=== PATIENT | male | born 1945 | race Caucasian/White ===

== ENCOUNTER 2016-05-18 05:45 | Day surgery (SDC) | payer MEDICARE ==
[2016-05-18] MEDS ORDERED: Lactated Ringers 1,000 ML IV SCH (06:30)
[2016-05-18] MEDS ORDERED: Ketamine HCl 50 MG/ML IV ONE (08:00)
[2016-05-18] MEDS ORDERED: DIPRIVAN 200 MG/20 ML IV ONE (08:00)
--- NOTE | 2016-05-18 08:26 | OP ---
SURGERY DATE/TIME: 05/18/2016 0735 PREOPERATIVE DIAGNOSIS: Screening colonoscopy. POSTOPERATIVE DIAGNOSIS: Cecal polyp x1 and sigmoid polyp x1. PROCEDURE: Colonoscopy. SURGEON: Rui Benjamin M.D. ANESTHESIA: MAC by Rex Patel CRNA. ESTIMATED BLOOD LOSS: Minimal. SPECIMENS: Two cold forceps polypectomies. DESCRIPTION OF PROCEDURE: After informed written consent was obtained, the patient was taken to the endoscopy suite. He underwent monitored anesthesia and digital rectal exam showed normal sphincter tone and no internal lesions. The scope was inserted in the rectum and sequentially the entire colonic mucosa was traversed. The level of cecum was reached and verified with direct visualization of ileocecal valve. There was a small sessile polyp present in the cecum which was removed with cold forceps in its entirety. There was minimal bleeding following removal. The entire lesion appeared to be removed. Upon withdrawal careful mucosal inspection revealed poor prep with liquidy stool present throughout much of the length of the colon but no obvious other abnormalities until I reached the distal sigmoid colon. There was a small sessile polyp there which was likewise removed with cold forceps polyp in its entirety. Prior to withdrawal retroflexion was performed and showed no internal lesions. The scope was removed and the patient was transferred to the recovery room in excellent condition.
[2016-05-18 10:03] VITALS: BP 142/81; PULSE 90; O2SAT 98
== END 2016-05-18 09:45 | disposition home or self-care (01) ==
LOC: SDC 05:45
PROVIDERS: ATTEND Family Medicine
PROC: 0DBH8ZX Excision of Cecum, Via Natural or Artificial Opening Endoscopic, Diagnostic (ICD-10-PCS; principal; 2016-05-18)
PROC: 0DBN8ZX Excision of Sigmoid Colon, Via Natural or Artificial Opening Endoscopic, Diagnostic (ICD-10-PCS; 2016-05-18)
DX: D12.0 Benign neoplasm of cecum (principal); D12.5 Benign neoplasm of sigmoid colon; Z12.11 Encounter for screening for malignant neoplasm of colon; I10 Essential (primary) hypertension
CPT/HCPCS: 00810; 36415; 82962; 88305; J2704

== ENCOUNTER 2016-12-17 15:06 | Emergency (ER) | payer MEDICARE ==
[2016-12-17 15:20] VITALS: O2SAT 96
--- NOTE | 2016-12-17 15:40 | ERPHSYRPT ---
- History of Present Illness Time Seen by Provider: 12/17/16 15:34 Source: patient Exam Limitations: no limitations Patient Subjective Stated Complaint: Pt states "I think my blood sugar is high, my meter said it was 318. I took it yesterday and it was 298. I do not know if i screwed up my meter or not." Triage Nursing Assessment: PT alert and oriented X 3, skin pwd pt ambulates without difficulty, able to speak in full sentencs, appears in no distress. Physician History: 71-year-old white male arrives with complaint of high blood pressures at home symptoms since yesterday. According to the patient he had had a blood pressure of 200 another at 298 one at 315 at home. Patient states he is on metformin. He does state that he recently had a sinus infection which was treated by his family doctor. Is not having fevers is not short of breath he has not had any chest pain really doesn't have any complaints other than he is worried about his numbers. Past medical history includes DVT, high blood pressure, pneumonia, hernia, asthma, diabetes. Past surgical history the patient apparently almost cut his penis off at home was a child, hernia repair., Mastectomy Timing/Duration: yesterday Severity: moderate Modifying Factors: Improves With: nothing Associated Symptoms: No nausea, No vomiting, No abdominal pain, No shortness of breath, No heartburn, No diaphoresis, No cough, No chills, No chest pain, No fever, No headaches, No loss of appetite, No malaise, No rash, No syncope, No seizure, No weakness Allergies/Adverse Reactions: silk Allergy (Severe, Verified 12/17/16 15:20) Swelling 1978 stiches caused swelling Sulfa (Sulfonamide Antibiotics) [Sulfa(Sulfonamide Antibiotics)] Allergy (Mild, Verified 12/17/16 15:20) Difficulty Breathing procaine HCl [From Novocain] Adverse Reaction (Mild, Verified 12/17/16 15:20) Rapid Heart Beat steroids Adverse Reaction (Severe, Uncoded 12/17/16 15:20) GI bleeding Home Medications: Carvedilol 6.25 mg [Coreg 6.25 MG] 6.25 mg PO BID 03/29/12 [History] Fluoxetine HCl 20 mg [Prozac 20 MG] 20 mg PO DAILY 02/15/13 [History] Clonidine HCl 0.1 mg [Catapres 0.1 MG] 0.2 mg PO BID 08/25/15 [History] Ferrous Sulfate 325 mg [Feosol 325 mg] 1 tab PO BID 08/25/15 [History] Hydrochlorothiazide 25 mg [hydroDIURIL 25 MG] 12.5 mg PO DAILY 08/25/15 [ History] Metformin HCl 500 mg [Glucophage 500 MG] 500 mg PO DAILY 05/13/16 [History ] Montelukast Sodium [Singulair] 10 mg PO DAILY 05/13/16 [History] Hx Tetanus, Diphtheria Vaccination/Date Given: Yes Hx Influenza Vaccination/Date Given: Yes Hx Pneumococcal Vaccination/Date Given: No Immunizations Up to Date: Yes - Review of Systems Constitutional: No Fever, No Chills Eyes: No Symptoms Ears, Nose, & Throat: No Symptoms Respiratory: No Cough, No Dyspnea Cardiac: No Chest Pain, No Edema, No Syncope Abdominal/Gastrointestinal: No Abdominal Pain, No Nausea, No Vomiting, No Diarrhea Genitourinary Symptoms: No Dysuria Musculoskeletal: No Back Pain, No Neck Pain Skin: No Rash Neurological: No Dizziness, No Focal Weakness, No Sensory Changes Psychological: No Symptoms Endocrine: No Symptoms - Past Medical History Pertinent Past Medical History: Yes Neurological History: No Pertinent History ENT History: Macular Degeneration Cardiac History: Deep Vein Thrombosis, Hypertension Respiratory History: Asthma, Pneumonia, Other Endocrine Medical History: Diabetes Type II, Other Musculoskeletal History: No Pertinent History GI Medical History: GERD, GI Bleed, Hernia History: Other Psycho-Social History: Anxiety, Depression Male Reproductive Disorders: Prostate Problems Other Medical History: KIDNEY CYST - Past Surgical History Past Surgical History: Yes Neuro Surgical History: No Pertinent History Cardiac: No Pertinent History Respiratory: No Pertinent History Gastrointestinal: Hernia Repair Genitourinary: No Pertinent History Musculoskeletal: No Pertinent History Male Surgical History: Vasectomy Other Surgical History: repair to penis d/t injury several years ago vasectomy times 2 - Social History Smoking Status: Never smoker Exposure to second hand smoke: No Drug Use: none Patient Lives Alone: Yes - Nursing Vital Signs Nursing Vital Signs: Initial Vital Signs Temperature 98.0 F 12/17/16 15:16 Pulse Rate 94 H 12/17/16 15:16 Respiratory Rate 18 12/17/16 15:16 Blood Pressure 162/95 12/17/16 15:16 O2 Sat by Pulse Oximetry 96 12/17/16 15:16 Pain Scale Pain Intensity 0 - Physical Exam General Appearance: no apparent distress, alert, obese Eye Exam: PERRL/EOMI, eyes nml inspection Ears, Nose, Throat Exam: normal ENT inspection, TMs normal, pharynx normal, moist mucous membranes Neck Exam: normal inspection, non-tender, supple, full range of motion Respiratory Exam: normal breath sounds, lungs clear, No respiratory distress Cardiovascular Exam: regular rate/rhythm, normal heart sounds, normal peripheral pulses Gastrointestinal/Abdomen Exam: soft, normal bowel sounds, No tenderness, No mass Back Exam: normal inspection, normal range of motion, No CVA tenderness, No vertebral tenderness Extremity Exam: normal inspection, normal range of motion, pelvis stable Neurologic Exam: alert, oriented x 3, cooperative, normal mood/affect, nml cerebellar function, nml station & gait, sensation nml, No motor deficits Skin Exam: normal color, warm, dry, No rash SpO2 Interpretation: normal (96%) SpO2: 96 Oxygen Delivery: Room Air - Course Nursing assessment & vital signs reviewed: Yes Ordered Tests: Active Orders 24 hr Category Date Time Status Accucheck STAT Care 12/17/16 15:34 Ordered - Progress Progress: improved Progress Note: 12/17/16 15:37 This is a 71-year-old white male with history of high blood pressure diabetes DVT pneumonia hernia asthma He is on metformin. He states his blood sugars were running 200, to 298 yesterday 315 this morning. He came in to have this checked he is really not having any shortness breath or pain. Patient has his Accu-Chek checked by the nurse Accu-Chek is 96. Will go ahead and release the patient have him do 4 times a day Accu-Cheks, after meals and at bedtime and write them down. Will also ask patient to bring in his meter and check it against the meter here. - Departure Time of Disposition: 15:39 Departure Disposition: Home Clinical Impression: Hyperglycemia, possible glucose monitor malfunction Condition: Fair Critical Care Time: No Referrals: PASCALE GROVES MD [Primary Care Provider] - Additional Instructions: Return home. Monitor blood sugars 4 times a day (before meals and at bedtime. Continue metformin as prescribed by your family doctor. Follow-up with your family doctor. Return for acute distress or for severe symptoms.
[2016-12-17 15:54] VITALS: BP 164/88; PULSE 88
== END 2016-12-17 15:54 | disposition home or self-care (01) ==
LOC: ED 15:06
DX: E11.65 Type 2 diabetes mellitus with hyperglycemia (principal); Z79.84 Long term (current) use of oral hypoglycemic drugs; I10 Essential (primary) hypertension
CPT/HCPCS: 82962; 99281; 99282

== ENCOUNTER 2017-05-18 15:32 | Inpatient (IN) | payer MEDICARE ==
[2017-05-18] MEDS ORDERED: MORPHINE SULFATE 4 MG INJ IV ONE (16:36)
[2017-05-18] MEDS ORDERED: Zofran 4 MG/2 ML VIAL IV ONE (16:36)
[2017-05-18] MEDS ORDERED: MORPHINE SULFATE 4 MG INJ ONE (16:41)
[2017-05-18] MEDS ORDERED: Zofran 4 MG/2 ML VIAL ONE (16:41)
[2017-05-18] MEDS ORDERED: Sodium Chloride 0.9% 1000 ML 1,000 ML ONE (16:42)
[2017-05-18] MEDS ORDERED: Sodium Chloride 0.9% 1000 ML 1,000 ML IV SCH (16:45)
[2017-05-18 17:21] LABS: ALBUMIN 3.8 g/dL (3.4-5.0); ANION GAP 17.1 MEQ/L (5-15); BILIRUBIN,TOTAL 0.3 mg/dL (0.2-1.0); Calcium 9.9 mg/dL (8.5-10.1); Creatinine 1 1.31 mg/dl (0.55-1.30); Potassium 4.4 mEq/L (3.5-5.1); Total Protein 7.7 gm/dL (6.4-8.2)
[2017-05-18 17:22] LABS: Granulocyte Absolute (ANC) 9.61 (1.4-6.9); Hematocrit 40.6 % (42-50); Hemoglobin 13.7 gm/dl (12.5-18.0); Mean Cell Volume 83.2 fl (78-100); Mean Corpuscular Hemoglobin 28.1 pg (26-32); Mean Corpuscular Hgb Concent. 33.7 g/dl (32-36); Mean Platelet Volume 9.9 fl (6-9.5); Platelet Count 206 K/mm3 (150-450); Red Blood Count 4.88 M/mm3 (4.1-5.6); Red Cell Distribution Width 13.8 % (11.5-14.0); White Blood Count 11.6 K/mm3 (4.0-10.5)
[2017-05-18] MEDS ORDERED: Hydromorphone 1 mg/ml Ampule IV ONE ×2 (17:46→19:10)
[2017-05-18] MEDS ORDERED: HOLD METFORMIN PRODUCTS FOR 48 HOURS MC SCH (18:00)
[2017-05-18 18:01] LABS: Appearance SLIGHTLY CLOUDY (CLEAR); Bilirubin NEGATIVE (NEGATIVE); Blood 250 Ery/ul (0-5); Glucose 100 mg/dL (NEGATIVE); Ketones MODERATE (NEGATIVE); Leukocyte Esterase NEGATIVE (NEGATIVE); Nitrite NEGATIVE (NEGATIVE); Protein,Urine Dip 30 (Negative); Urobilinogen NORMAL mg/dL (0-1)
[2017-05-18 18:02] LABS: Amourphous Crystal FEW /HPF (NEGATIVE); Bacteria FEW /HPF (NEGATIVE); Mucus SLIGHT /HPF (NEGATIVE); WBC 0-2 /HPF (0-5)
[2017-05-18] MEDS ORDERED: DILAUDID 2 MG INJECTION ONE ×2 (18:10→19:21)
--- NOTE | 2017-05-18 19:44 | ERPHSYRPT ---
- History of Present Illness Time Seen by Provider: 05/18/17 16:05 Historian: patient Exam Limitations: clinical condition Patient Subjective Stated Complaint: pt here for right sided abd pain that started today, with nausea, pt co constipation, has bm yesterday.tool miralax at home Triage Nursing Assessment: pt alert, resp easy, walked in, in mild ditress, rubbing abd , and large and distended, no edema noted Physician History: PATIENT WITH A HISTORY OF HYPERTENSION , AND TYPE 2 DIABETES, COMPLAINS OF RIGHT SIDED ABDOMINAL PAIN AND DISTENTION SINCE THIS MORNING ASSOCIATED WITH NAUSEA, AND DYSURIA. DENIES EMESIS OR DIARRHEA, OR FEVER. STATES HE IS SO DISTENDED HE IS UNABLE TO BUTTON UP HIS PANTS. Timing/Duration: today Activities at Onset: none Quality: throbbing Abdominal Pain Onset Location: RLQ Pain Radiation: no radiation Severity of Pain-Max: severe Severity of Pain-Current: severe Modifying Factors: Improves With: movement Associated Symptoms: nausea, other (DYSURIA) Previous symptoms: no prior history Allergies/Adverse Reactions: silk Allergy (Severe, Verified 05/18/17 15:54) Swelling 1978 stiches caused swelling Sulfa (Sulfonamide Antibiotics) [Sulfa(Sulfonamide Antibiotics)] Allergy (Mild, Verified 05/18/17 15:54) Difficulty Breathing procaine HCl [From Novocain] Adverse Reaction (Mild, Verified 05/18/17 15:54) Rapid Heart Beat steroids Adverse Reaction (Severe, Uncoded 05/18/17 15:54) GI bleeding Home Medications: Carvedilol 6.25 mg [Coreg 6.25 MG] 6.25 mg PO BID 03/29/12 [History] Fluoxetine HCl 20 mg [Prozac 20 MG] 20 mg PO DAILY 02/15/13 [History] Clonidine HCl 0.1 mg [Catapres 0.1 MG] 0.2 mg PO BID 08/25/15 [History] Ferrous Sulfate 325 mg [Feosol 325 mg] 1 tab PO DAILY 08/25/15 [History] Hydrochlorothiazide 25 mg [hydroDIURIL 25 MG] 12.5 mg PO DAILY 08/25/15 [ History] Metformin HCl 500 mg [Glucophage 500 MG] 500 mg PO BID 05/13/16 [History] Montelukast Sodium [Singulair] 10 mg PO DAILY 05/13/16 [History] Hx Tetanus, Diphtheria Vaccination/Date Given: Yes Hx Influenza Vaccination/Date Given: Yes Hx Pneumococcal Vaccination/Date Given: Yes Immunizations Up to Date: Yes - Review of Systems Constitutional: No Fever, No Chills Eyes: No Symptoms Ears, Nose, & Throat: No Symptoms Respiratory: No Cough, No Dyspnea Cardiac: No Chest Pain, No Edema, No Syncope Abdominal/Gastrointestinal: Abdominal Pain, Nausea, No Vomiting, No Diarrhea Genitourinary Symptoms: Dysuria, Other Musculoskeletal: No Back Pain, No Neck Pain Skin: No Symptoms, No Rash Neurological: No Dizziness, No Focal Weakness, No Sensory Changes Psychological: No Symptoms Endocrine: No Symptoms All Other Systems: Reviewed and Negative - Past Medical History Pertinent Past Medical History: Yes Neurological History: No Pertinent History ENT History: Macular Degeneration Cardiac History: Deep Vein Thrombosis, Hypertension Respiratory History: Asthma, Pneumonia, Other Endocrine Medical History: Diabetes Type II, Other Musculoskeletal History: No Pertinent History GI Medical History: GERD, GI Bleed, Hernia History: Other Psycho-Social History: Anxiety, Depression Male Reproductive Disorders: Prostate Problems Other Medical History: KIDNEY CYST - Past Surgical History Past Surgical History: Yes Neuro Surgical History: No Pertinent History Cardiac: No Pertinent History Respiratory: No Pertinent History Gastrointestinal: Hernia Repair Genitourinary: No Pertinent History Musculoskeletal: No Pertinent History Male Surgical History: Vasectomy Other Surgical History: repair to penis d/t injury several years ago vasectomy times 2 - Social History Smoking Status: Never smoker Exposure to second hand smoke: No Drug Use: none Patient Lives Alone: No - Nursing Vital Signs Nursing Vital Signs: Initial Vital Signs Temperature 97.0 F 05/18/17 15:48 Pulse Rate 82 05/18/17 15:48 Respiratory Rate 18 05/18/17 15:48 Blood Pressure 194/110 05/18/17 15:48 O2 Sat by Pulse Oximetry 97 05/18/17 15:48 Pain Scale Pain Intensity 9 - Physical Exam General Appearance: no apparent distress, alert Eye Exam: PERRL/EOMI, eyes nml inspection Ears, Nose, Throat Exam: normal ENT inspection, pharynx normal, moist mucous membranes Neck Exam: normal inspection, non-tender, supple, full range of motion Respiratory Exam: normal breath sounds, lungs clear, No respiratory distress Cardiovascular Exam: regular rate/rhythm, normal heart sounds Gastrointestinal/Abdomen Exam: soft, normal bowel sounds, tenderness, distention (MARKED DISTENTION, RIGHT LOWER QUADRANT TENDERNESS), No mass Back Exam: normal inspection, normal range of motion, No CVA tenderness, No vertebral tenderness Extremity Exam: normal inspection, normal range of motion, pelvis stable Neurologic Exam: alert, oriented x 3, cooperative, normal mood/affect, nml cerebellar function, sensation nml, No motor deficits Skin Exam: normal color, warm, dry SpO2 Interpretation: normal SpO2: 94 Oxygen Delivery: Room Air - CT Exams Abdomen/Pelvis CT Interpretation: Discussed w/radiologist (BILATERAL PERINEPHRIC STRANDING RIGHT GREATER THAN LEFT, RULE NEPHRITIS, BILATERAL RENAL CYSTS, CARDENAS INSITU, MODERATE FLUID DISTENDED STOMACH WITHOUT OBSTRUCTION, FATTY LIVER) Ordered Tests: Active Orders 24 hr Category Date Time Status Up Ad Carly ROUTINE Activity 05/18/17 21:34 Ordered Admission/Status Order ROUTINE Care 05/18/17 21:32 Ordered Call Admit Doctor for Orders ON ADMISSION Care 05/18/17 21:33 Ordered Clean Catch Urine Specimen STAT Care 05/18/17 16:36 Active Code Status Order ROUTINE Care 05/18/17 21:32 Ordered Cardenas [Catheter-[place] Cardenas] STAT Care 05/18/17 17:21 Active Gastric Tube Insertion STAT Care 05/18/17 20:09 Active IV Care Q6H Care 05/18/17 21:32 Ordered IV Insertion STAT Care 05/18/17 16:36 Active Intake and Output Q12H Care 05/18/17 21:32 Ordered Vital Signs Q4H Care 05/18/17 21:32 Ordered NPO Diet 05/18/17 21:34 Ordered ABDOMEN AND PELVIS W CONTRAST [CT] Stat Exams 05/18/17 16:36 Taken AMYLASE Stat Lab 05/18/17 16:10 Completed BLOOD CULTURE Stat Lab 05/18/17 17:08 Received CBC W DIFF Stat Lab 05/18/17 16:10 Completed CMP Stat Lab 05/18/17 16:10 Completed CULTURE,URINE Stat Lab 05/18/17 16:30 Received LIPASE Stat Lab 05/18/17 16:10 Completed Manual Differential NC Stat Lab 05/18/17 16:10 Completed UA W/ MICROSCOPIC Stat Lab 05/18/17 17:30 Completed Oxygen NASAL CANNULA 2 lpm RT 05/18/17 21:32 Ordered Pulse Oximetry CONTINUOUS RT 05/18/17 21:34 Ordered Transfer Order Routine Transfer 05/18/17 Ordered Medication Summary Generic Name Dose Route Start Last Admin Trade Name Fiordaliza PRN Reason Stop Dose Admin Hydromorphone HCl 0.5 mg 05/18/17 21:32 Dilaudid 2 Mg Injection IV 05/23/17 21:31 Q4H PRN PRN PAIN Sodium Chloride 1,000 mls @ 200 mls/hr 05/18/17 16:45 05/18/17 16:43 Sodium Chloride 0.9% 1000 Ml IV 06/17/17 16:44 200 mls/hr .Q5H GARRY Administration Levofloxacin/Dextrose 500 mg in 100 mls @ 100 mls/hr 05/18/17 21:30 Levofloxacin 500mg/100ml D5w IV 05/18/17 22:29 STAT STA Levofloxacin/Dextrose 500 mg in 100 mls @ 100 mls/hr 05/19/17 10:00 Levofloxacin 500mg/100ml D5w IV 06/18/17 09:59 Q24H10 GARRY Sodium Chloride 1,000 mls @ 100 mls/hr 05/18/17 21:45 Sodium Chloride 0.9% 1000 Ml IV 06/17/17 21:44 .Q10H GARRY Insulin Aspart 0 unit 05/18/17 21:32 Novolog Insulin SQ 06/17/17 21:31 UD PRN HYPERGLYCEMIA Ondansetron HCl 4 mg 05/18/17 21:32 Zofran 4 Mg/2 Ml Vial IV 06/17/17 21:31 Q6H PRN PRN NAUSEA/VOMITING Pantoprazole Sodium 40 mg 05/19/17 10:00 Protonix 40 Mg Iv IV 06/18/17 09:59 Q24H10 GARRY Discontinued Medications Generic Name Dose Route Start Last Admin Trade Name Fiordaliza PRN Reason Stop Dose Admin Hydralazine HCl 10 mg 05/18/17 21:21 05/18/17 21:34 Apresoline 20 Mg/Ml Inj IV 05/18/17 21:22 Not Given STAT ONE Hydralazine HCl Confirm 05/18/17 21:31 Apresoline 20 Mg/Ml Inj Administered 05/18/17 21:32 Dose 20 mg .ROUTE .STK-MED ONE Hydromorphone HCl 0.5 mg 05/18/17 17:46 05/18/17 18:11 Hydromorphone 1 Mg/Ml Ampule IV 05/18/17 17:47 0.5 mg STAT ONE Administration Hydromorphone HCl Confirm 05/18/17 18:10 Dilaudid 2 Mg Injection Administered 05/18/17 18:11 Dose 2 mg .ROUTE .STK-MED ONE Hydromorphone HCl 0.5 mg 05/18/17 19:10 05/18/17 19:23 Hydromorphone 1 Mg/Ml Ampule IV 05/18/17 19:11 0.5 mg STAT ONE Administration Hydromorphone HCl Confirm 05/18/17 19:21 Dilaudid 2 Mg Injection Administered 05/18/17 19:22 Dose 2 mg .ROUTE .STK-MED ONE Morphine Sulfate 4 mg 05/18/17 16:36 05/18/17 16:43 Morphine Sulfate 4 Mg Inj IV 05/18/17 16:37 4 mg STAT ONE Administration Morphine Sulfate Confirm 05/18/17 16:41 Morphine Sulfate 4 Mg Inj Administered 05/18/17 16:42 Dose 4 mg .ROUTE .STK-MED ONE Ondansetron HCl 4 mg 05/18/17 16:36 05/18/17 16:43 Zofran 4 Mg/2 Ml Vial IV 05/18/17 16:37 4 mg STAT ONE Administration Ondansetron HCl Confirm 05/18/17 16:41 Zofran 4 Mg/2 Ml Vial Administered 05/18/17 16:42 Dose 4 mg .ROUTE .STK-MED ONE Lab/Rad Data: Laboratory Result Diagrams 05/18/17 16:10 05/18/17 16:10 Laboratory Results 05/18/17 05/18/17 05/18/17 Range/Units 17:30 16:10 16:10 WBC 11.6 H (4.0-10.5) K/mm3 RBC 4.88 (4.1-5.6) M/mm3 Hgb 13.7 (12.5-18.0) gm/dl Hct 40.6 L (42-50) % MCV 83.2 (78-100) fl MCH 28.1 (26-32) pg MCHC 33.7 (32-36) g/dl RDW 13.8 (11.5-14.0) % Plt Count 206 (150-450) K/mm3 MPV 9.9 H (6-9.5) fl Segmented Neutrophils 82 H (36.-66.) % Lymphocytes (Manual) 12 L (24-44) % Monocytes (Manual) 5 (0.0-12.0) % Eosinophils (Manual) 1 (0.00-3.0) % Differential Comment NORMAL Platelet Estimate NORMAL (NORMAL) Sodium 137 (136-145) mEq/L Potassium 4.4 (3.5-5.1) mEq/L Chloride 99 (98-107) mEq/L Carbon Dioxide 25.0 (21-32) mEq/L Anion Gap 17.1 H (5-15) MEQ/L BUN 15 (9-20) mg/dL Creatinine 1.31 H (0.55-1.30) mg/dl Estimated GFR 58 ML/MIN Glucose 200 H (70-110) MG/DL Calcium 9.9 (8.5-10.1) mg/dL Total Bilirubin 0.30 (0.2-1.0) mg/dL AST 20 (15-37) U/L ALT 34 (12-78) U/L Alkaline Phosphatase 67 (46-116) U/L Serum Total Protein 7.7 (6.4-8.2) gm/dL Albumin 3.8 (3.4-5.0) g/dL Amylase 42 (25-115) U/L Lipase 98 (73-393) U/L Ur Collection Type CCMS Urine Color YELLOW (YELLOW) Urine Appearance SLIGHTLY CLOUDY (CLEAR) Urine pH 5.0 (5-6) Ur Specific [place] 1.020 (1.005-1.025) Urine Protein 30 (Negative) Urine Ketones MODERATE (NEGATIVE) Urine Blood 250 (0-5) Ralph/ul Urine Nitrite NEGATIVE (NEGATIVE) Urine Bilirubin NEGATIVE (NEGATIVE) Urine Urobilinogen NORMAL (0-1) mg/dL Ur Leukocyte Esterase NEGATIVE (NEGATIVE) Urine Microscopic RBC 25-50 (0-2) /HPF Urine Microscopic WBC 0-2 (0-5) /HPF Amorphous Crystals FEW (NEGATIVE) /HPF Urine Bacteria FEW (NEGATIVE) /HPF Urine Mucus SLIGHT (NEGATIVE) /HPF Urine Culture Reflexed NO (NO) Urine Glucose 100 (NEGATIVE) mg/dL Specimen Received 05-18-17 1800 - Progress Progress: pain not gone completely Progress Note: 05/18/17 20:26 IV NORMAL SALINE 250ML/HR, ZOFRAN 4MG, MORPHINE 4MG, DILAUDID 0.5MG X 2 05/18/17 21:18 NASAL GASTRIC TO LOW SUCTION Discussed with Dr.: Johanna Will see patient in: hospital (full admit) (DISCUSSED WITH DR MAHER AT AT 1730 FOR ADMIT) - Departure Time of Disposition: 21:30 Departure Disposition: In-patient Admission Clinical Impression: ACUTE ABDOMINAL PAIN, EARLY RIGHT PYELONEPHRITIS Condition: Stable Critical Care Time: No Referrals: PASCALE GROVES MD [Primary Care Provider] -
[2017-05-18] MEDS ORDERED: Levofloxacin 500MG/100ML D5W 500 MG/100 ML BAG IV STA (21:30)
[2017-05-18] MEDS ORDERED: APRESOLINE 20 MG/ML INJ ONE (21:31)
[2017-05-18] MEDS: APRESOLINE 20 MG/ML INJ IV ONE ×2 (21:31→21:34)
[2017-05-18] MEDS ORDERED: Zofran 4 MG/2 ML VIAL IV PRN (21:32)
[2017-05-18] MEDS ORDERED: DILAUDID 2 MG INJECTION IV PRN (21:32)
[2017-05-18 21:34] LABS: Eosinophil 1 % (0.00-3.0); Lymphocytes 12 % (24-44); Monocyte 5 % (0.0-12.0); Neutrophils 82 % (36.-66.); Platelet Estimate NORMAL (NORMAL); Total Cells Counted 100
[2017-05-18] MEDS: Sodium Chloride 0.9% 1000 ML 1,000 ML IV SCH (22:30)
[2017-05-19] MEDS: DILAUDID 1 MG/1ML PCA IV PRN ×2 (01:14→06:24)
[2017-05-19] MEDS ORDERED: Phenergan 25 MG INJ IV PRN (08:24)
--- NOTE | 2017-05-19 08:44 | XRAY ---
Indication: Abdominal pain and distention. Multiple contiguous axial images obtained through the abdomen and pelvis using 80 cc Isovue 370 contrast only. Comparison: None Lung bases demonstrate minimal dependent atelectasis/scarring. 5 mm noncalcified nodule in the right posterior gutter probably granulomatous in this demographic. No infiltrate or effusion. Heart is not enlarged. Stomach is moderately fluid distended. Noncontrasted bowel loops appear nonobstructed. No free fluid/air. Both kidneys demonstrates perinephric stranding, right greater than left with tiny right perinephric fluid favoring nephritis. 3 cm left lower pole and 2.5 cm right mid renal cysts. No suspicious renal mass, hydronephrosis, or hydroureter. Santiago catheter empties the urinary bladder. Diffuse fatty liver without focal solid/cystic mass. Remaining gallbladder, pancreas, spleen, antigen glands appear unremarkable. Minimal aortoiliac calcifications. No AAA or pathologic retroperitoneal lymphadenopathy. Osseous structures intact with minimal degenerative changes throughout the spine. 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 Mild/moderate bilateral fatty inguinal hernias, right greater than left. Impression: 1. Bilateral perinephric stranding with tiny right perinephric fluid. Rule out nephritis. Also bilateral renal cysts. 2. Fatty liver. 3. Bilateral fatty inguinal hernias. 4. Right lung base noncalcified micronodule probably granulomatous in this demographic. Comparison studies would be of benefit if performed elsewhere. If not available, consider CT chest exam establishing baseline with follow-up per Fleischner guidelines. 5. Bilateral L5 spondylolysis with grade [address] DI 23.68
[2017-05-19 08:46] LABS: Hematocrit 41.8 % (42-50); Hemoglobin 14.1 gm/dl (12.5-18.0); Mean Cell Volume 84.1 fl (78-100); Mean Corpuscular Hemoglobin 28.4 pg (26-32); Mean Corpuscular Hgb Concent. 33.7 g/dl (32-36); Mean Platelet Volume 9.6 fl (6-9.5); Platelet Count 207 K/mm3 (150-450); Red Blood Count 4.97 M/mm3 (4.1-5.6); Red Cell Distribution Width 14.2 % (11.5-14.0); White Blood Count 11.6 K/mm3 (4.0-10.5)
--- NOTE | 2017-05-19 09:05 | HP ---
HISTORY OF PRESENT ILLNESS: This is a patient of Dr. Morris who presented to the emergency department. Dr. Spencer was covering and was called by the emergency room doctor and now both Dr. Spencer and Dr. Benjamin are out today. The patient reports that yesterday he started to have some right-sided pain after eating pancakes and eggs at [employer]. He states it comes from the right lower quadrant up towards the right upper quadrant and he felt like he needed to use the bathroom but he was unable to go. He denies being able to pass gas since yesterday and has felt bloated or distended. He was up in [place] visiting a friend and drove himself down to [place] where his son-in-law then brought him into the emergency department. He states he continued to have right-sided pain. He still has his gallbladder. He thinks he had a very tiny stool yesterday and two days ago was his last normal stool. He also reports he ate at [id number] two days ago. He denies any history of any bowel problems. He has not had any vomiting at home. REVIEW OF SYSTEMS: He has not had any fevers at home but has felt warm. He continues to have abdominal pain. No shortness of breath. He had some nausea and retching when he changed positons when he was in his bed here at the hospital. No lower extremity edema. PAST MEDICAL HISTORY: Hypertension, depression. He reports a history of he calls internal bleeding at [facility]. He reports he has a problem with his duodenum. He denies having ulcer. He states they did not have to do surgery. He also reports being at [facility] in 2013 with deep venous thrombosis, pulmonary embolism and right sided pneumonia. PAST SURGICAL HISTORY: Hernia repair, vasectomy x2, surgery on his penis. MEDICATIONS: Carvedilol 6.25 mg p.o. b.i.d., clonidine 0.4 mg p.o. b.i.d., ferrous sulfate 325 mg p.o. daily, fluoxetine 20 mg p.o. daily, hydrochlorothiazide 12.5 mg daily, Metformin 500 mg p.o. b.i.d., Singulair 10 mg p.o. daily. ALLERGIES: SILK, SULFA, PROCAINE. SOCIAL HISTORY: He denies any tobacco use. He reports he rarely drinks wine. He lives alone. He is a . FAMILY HISTORY: It was not taken during this exam. PHYSICAL EXAMINATION: VITAL SIGNS: Temperature current 98.6F, temperature max 98.6F, heart rate 82 to 104, respiratory rate 16 to 20, blood pressure 149 to 194 over 80 to 110, weight 115.5 kg. Oxygen saturation 94 to 99% on room air to 2 liters nasal cannula. GENERAL: The patient is sitting up in his bed. He is pleasant and talkative. He has NG tube in place. When I asked him to lean forward to listen to his lungs he developed nausea and vomiting. The NG tube had some output that looks like clear fluid. CVS: Heart has a regular rate and rhythm. No murmurs, gallops or rubs. CHEST: Clear to auscultation bilaterally. ABDOMEN: Distended. I heard one bowel sounds. He has tenderness right lower quadrant. No tenderness in the left side. No guarding. No rigidity. EXTREMITIES: Trace edema to his knees bilaterally. No clubbing or edema. LABORATORY DATA AND TESTS: His white blood cell count was 11.7 with 82% neutrophils, 12% lymphocytes. Creatinine was 1.3, glucose 200. UA was 25 to 50 red blood cells and 0 to 2 white blood cells, 100 glucose, moderate ketone. He has urine and blood cultures in lab. CT scan of his abdomen and pelvis was read as perinephric stranding right greater than left. Bilateral renal cyst. Moderate fluid distended stomach without obstruction, fatty liver, fatty inguinal hernia. Please see the radiologist dictation for the full report. They said this was done with contrast. ASSESSMENT AND PLAN: 1) ABDOMINAL PAIN: Will ask the general surgeons to see the patient, will continue the NG tube and have him NPO. 2) POSSIBLE NEPHRITIS. He has been started on Levaquin and will continue with this. His UA did not show any bacteria or white blood cells to support the diagnosis of nephritis. 3) HYPERTENSION: He has hydralazine ordered as needed, will try to restart his home antihypertensive if they are able to clean the NG for this. 4) DEPRESSION: We will currently hold his anti-depression medication. 5) DIABETES: He is on a low dose sliding scale of NovoLog. 6) DEEP VENOUS THROMBOSIS PROPHYLAXIS: Will start him on Lovenox and MISAEL hose. 7) CODE STATUS: I discussed with Chapito Simmons and he does not want to be put on a breathing machine or have chest compressions if his heart would stop beating or he stopped breathing.
--- NOTE | 2017-05-19 09:20 | XRAY ---
Indication: Abdominal pain, vomiting, nausea. Comparison: Chest exam April 30, 2015. 2 views of the abdomen demonstrates nonspecific nonobstructed bowel gas pattern with NG tube tip in the stomach. There is residual contrast in the system from recent CT. Remaining solid organs are unremarkable. Osseous structures intact with mild degenerative spondylosis, moderate bilateral hip degenerative changes, and mild double curvature scoliosis. Single frontal chest demonstrates new left base subsegmental atelectasis. Remaining heart and lungs unremarkable. Bony thorax intact with mild degenerative changes. Impression: 1. Nonacute nonobstructed abdomen with NG tube in situ. 2. New left base atelectasis. No acute cardiopulmonary abnormalities.
[2017-05-19 09:21] LABS: BAND 2 % (0.0-2.0); Eosinophil 1 % (0.00-3.0); Lymphocytes 8 % (24-44); Monocyte 3 % (0.0-12.0); Neutrophils 86 % (36.-66.); Total Cells Counted 100
[2017-05-19 09:22] LABS: Granulocyte Absolute (ANC) 10.2 (1.4-6.9); Platelet Estimate NORMAL (NORMAL)
[2017-05-19 09:23] LABS: ANION GAP 14.3 MEQ/L (5-15); Calcium 9.3 mg/dL (8.5-10.1); Creatinine 1 1.66 mg/dl (0.55-1.30); Potassium 4.7 mEq/L (3.5-5.1)
[2017-05-19] MEDS: Catapres 0.1 MG PO SCH ×2 (09:44→23:19)
[2017-05-19] MEDS: ENOXAPARIN SODIUM SQ SCH (09:44)
[2017-05-19] MEDS: Coreg 6.25 MG PO SCH ×2 (09:44→23:19)
[2017-05-19] MEDS: Sodium Chloride 0.9% 1000 ML 1,000 ML IV SCH ×2 (09:55→20:39)
[2017-05-19] MEDS: PROTONIX 40 MG IV IV SCH (09:57)
[2017-05-19] MEDS ORDERED: Levofloxacin 500MG/100ML D5W 500 MG/100 ML BAG IV SCH (10:00)
--- NOTE | 2017-05-19 10:07 | XRAY ---
Indication: Abdominal pain. Two-dimensional right upper quadrant abdominal sonogram performed. Comparison: None Gallbladder normally distended without gallstones, wall thickening, or pericholecystic fluid. Common bile duct measures 4.9 mm. No intrahepatic biliary distention. Fatty echogenic liver without focal solid/cystic mass. No ascites. Remaining visualized pancreas unremarkable. Right kidney measures 13 cm in length with a 2.3 cm upper pole cortical cyst. Impression: 1. Fatty liver and right renal cyst. 2. Remaining gallbladder sonogram is negative.
[2017-05-19] MEDS: NovoLOG Insulin SQ PRN (11:04)
[2017-05-19] MEDS ORDERED: PROVENTIL 2.5 MG/3 ML NEB IH ONE (16:55)
[2017-05-19] MEDS ORDERED: PROVENTIL 2.5 MG/3 ML NEB IH PRN (16:59)
[2017-05-19] MEDS: PROVENTIL 2.5 MG/3 ML NEB IH SCH (17:02)
[2017-05-19] MEDS ORDERED: TYLENOL 325 MG PO PRN (20:49)
[2017-05-19] MEDS: Levofloxacin 500MG/100ML D5W 500 MG/100 ML BAG IV SCH (23:18)
[2017-05-20 06:04] LABS: ANION GAP 13.9 MEQ/L (5-15); BASOPHIL % 0.2 % (0.0-0.4); Basophil (Absolute #) 0.02 (0-0.4); Carbon Dioxide 29.1 mEq/L (21-32); Creatinine 1 1.53 mg/dl (0.55-1.30); Eosinophil % 0.6 % (0.00-5.0); Eosinophil (Absolute #) 0.06 (0-0.5); Granulocyte Absolute (ANC) 7.55 (1.4-6.9); Granulocytes % 79.9 % (36.0-66.0); Hematocrit 40.7 % (42-50); Hemoglobin 13.4 gm/dl (12.5-18.0); Lymphocyte (Absolute #) 0.83 (1.0-4.6); Lymphocytes % 8.8 % (24.0-44.0); Mean Cell Volume 85.7 fl (78-100); Mean Corpuscular Hemoglobin 28.2 pg (26-32); Mean Corpuscular Hgb Concent. 32.9 g/dl (32-36); Mean Platelet Volume 10.4 fl (6-9.5); Monocyte (Absolute #) 0.99 (0.0-1.3); Monocytes % 10.5 % (0.0-12.0); Platelet Count 194 K/mm3 (150-450); Potassium 4.6 mEq/L (3.5-5.1); Red Blood Count 4.75 M/mm3 (4.1-5.6); Red Cell Distribution Width 14.4 % (11.5-14.0); White Blood Count 9.5 K/mm3 (4.0-10.5)
[2017-05-20] MEDS: PROVENTIL 2.5 MG/3 ML NEB IH SCH ×3 (06:55→19:28)
[2017-05-20] MEDS: Sodium Chloride 0.9% 1000 ML 1,000 ML IV SCH (07:33)
[2017-05-20] MEDS: Catapres 0.1 MG PO SCH ×2 (09:14→21:36)
[2017-05-20] MEDS: Coreg 6.25 MG PO SCH ×2 (09:14→21:36)
[2017-05-20] MEDS: PROTONIX 40 MG IV IV SCH (09:15)
[2017-05-20] MEDS: ENOXAPARIN SODIUM SQ SCH (09:15)
--- NOTE | 2017-05-20 12:30 | PCM.NOTE ---
Date and Time: 05/20/17 1222 Subjective Assessment: He reports that he is feeling much better today. The surgeon saw him last night and the nurses reported to me later today that he is going to have his NG removed and let him eat. The patient reports he has not needed his [employer] since last night and that his abdomen does not feel as distended. Urine culture report was changed by lab from gram neg to no growth final. I called and confirmed this with Camilla in the lab and she said there was no growth and the gram neg result had been entered in error. Unfortunately, I had already told the patient that his urine was growing a bacteria based on the lab results that I had at that time from the lab. - Review of Systems Constitutional: No Symptoms Eyes: No Symptoms Ears, Nose, & Throat: No Symptoms Respiratory: No Symptoms Cardiac: No Symptoms Abdominal/Gastrointestinal: Other (abdominal pain has improved) Genitourinary Symptoms: Other (He reports a little burning last Monday when he urinated) Musculoskeletal: No Symptoms Skin: No Symptoms Objective Exam General Appearance: no apparent distress, alert, obese Neurologic Exam: alert, cooperative, normal mood/affect Skin Exam: normal color, warm, dry, No rash Respiratory Exam: normal breath sounds, lungs clear, No crackles/rales, No rhonchi, No wheezing Cardiovascular Exam: regular rate/rhythm, normal heart sounds, No murmur, No friction rub, No gallop Gastrointestinal/Abdomen Exam: soft, normal bowel sounds, other (NG tube in place), No tenderness, No distention, No mass Extremity Exam: other (no c/c/e) OBJECTIVE DATA Vital Signs: Vital Signs - 24 hr Temp Pulse Resp BP Pulse Ox 05/20/17 11:45 98.5 F 98 H 18 129/73 95 05/20/17 08:21 94 L 05/20/17 07:25 97.8 F 89 18 135/81 97 05/20/17 06:55 93 H 18 96 05/20/17 04:00 97.8 F 91 H 20 149/82 94 L 05/20/17 00:00 98.0 F 81 20 178/95 96 05/19/17 23:30 79 20 97 05/19/17 20:47 96 05/19/17 19:55 98.1 F 79 19 142/78 96 05/19/17 17:06 97 05/19/17 17:00 79 18 97 05/19/17 16:47 98 05/19/17 16:25 97.8 F 86 20 155/82 98 Oxygen-Last 24 hours O2 Percentage 2 Liters = 28% O2 Percentage 2 Liters = 28% O2 Percentage 2 Liters = 28% O2 Percentage 2 Liters = 28% Pain Assessment - Last Documented Pain Intensity 2 Pain Scale Used 0-10 Pain Scale Intake and Output: Intake & Output 05/18/17 05/19/17 05/20/17 05/21/17 06:59 06:59 06:59 06:59 Intake Total 574 1758 0 Output Total 2525 2150 1000 Balance -1950 -392 -1000 Weight 115.5 kg Lab Results: Accuchecks Date 05/20/17 Date 05/20/17 Date 05/19/17 Date 05/19/17 Time 11:30 Time 05:28 Accucheck Value: 140 Accucheck Value: 172 Accucheck Value: 153 Accucheck Value: 163 Lab Results-Last 24 Hours 05/20/17 05/20/17 Range/Units 05:43 05:43 WBC 9.5 (4.0-10.5) K/mm3 RBC 4.75 (4.1-5.6) M/mm3 Hgb 13.4 (12.5-18.0) gm/dl Hct 40.7 L (42-50) % MCV 85.7 (78-100) fl MCH 28.2 (26-32) pg MCHC 32.9 (32-36) g/dl RDW 14.4 H (11.5-14.0) % Plt Count 194 (150-450) K/mm3 MPV 10.4 H (6-9.5) fl Gran % 79.9 H (36.0-66.0) % Lymphocytes % 8.8 L (24.0-44.0) % Monocytes % 10.5 (0.0-12.0) % Eosinophils % 0.6 (0.00-5.0) % Basophils % 0.2 (0.0-0.4) % Basophils # 0.02 (0-0.4) Sodium 141 (136-145) mEq/L Potassium 4.6 (3.5-5.1) mEq/L Chloride 103 (98-107) mEq/L Carbon Dioxide 29.1 (21-32) mEq/L Anion Gap 13.9 (5-15) MEQ/L BUN 15 (9-20) mg/dL Creatinine 1.53 H (0.55-1.30) mg/dl Estimated GFR 48 ML/MIN Glucose 172 H (70-110) MG/DL Calcium 9.0 (8.5-10.1) mg/dL Radiology Exams: Radiology Procedures Category Date Time Status GALLBLADDER [US] Routine Exams 05/19/17 09:45 Completed OBSTR/ACUTE ABDOMEN SERIES Urgent Exams 05/19/17 09:11 Completed Multi-Disciplinary Progress Notes: Multi-Disciplinary Progress Notes 05/19/17 17:09 Respiratory Note by Humaira Perry PEAK FLOW NOT DONE AT THIS TIME PTS NG IS MAKING HIM UNCOMFORTABLE WITH THE SLIGHTEST MOVEMENT Initialized on 05/19/17 17:09 - END OF NOTE Assessment/Plan (1) Abdominal pain Current Visit: Yes Status: Acute Assessment & Plan: Improved today after NG has been place for a little over 24 hours. The general surgeon saw him and is following but does not feel he needs surgery at this time. Gallbladder US was normal. Urine culture was no growth final. Code(s): R10.9 - UNSPECIFIED ABDOMINAL PAIN (2) Hypertension Current Visit: Yes Status: Acute Assessment & Plan: Continue home antihypertensives. Code(s): I10 - ESSENTIAL (PRIMARY) HYPERTENSION (3) Depression Current Visit: Yes Status: Acute Code(s): F32.9 - MAJOR DEPRESSIVE DISORDER , SINGLE EPISODE, UNSPECIFIED (4) Diabetes type 2, controlled Current Visit: Yes Status: Acute Qualifiers: Diabetes mellitus complication status: without complication Code(s): E11.9 - TYPE 2 DIABETES MELLITUS WITHOUT COMPLICATIONS (5) Hematuria Current Visit: Yes Status: Acute Assessment & Plan: Will recheck UA. If he continues to have RBC's or blood in his urine, will need outpatient referral to urology. Code(s): R31.9 - HEMATURIA, UNSPECIFIED
[2017-05-20 15:21] LABS: Appearance HAZY (CLEAR); Bilirubin NEGATIVE (NEGATIVE); Blood 250 Ery/ul (0-5); Glucose 250 mg/dL (NEGATIVE); Ketones NEGATIVE (NEGATIVE); Leukocyte Esterase 1+ (NEGATIVE); Nitrite NEGATIVE (NEGATIVE); Protein,Urine Dip 100 (Negative); Urobilinogen NORMAL mg/dL (0-1)
[2017-05-20 17:09] LABS: Bacteria MODERATE /HPF (NEGATIVE); Epithelial Cells FEW /HPF (FEW); Mucus MODERATE /HPF (NEGATIVE); WBC 25-50 /HPF (0-5)
[2017-05-20] MEDS: Levofloxacin 500MG/100ML D5W 500 MG/100 ML BAG IV SCH (21:36)
[2017-05-21] MEDS: Sodium Chloride 0.9% 1000 ML 1,000 ML IV SCH (04:44)
[2017-05-21 05:31] LABS: Granulocyte Absolute (ANC) 5.08 (1.4-6.9); Hematocrit 35.2 % (42-50); Hemoglobin 11.6 gm/dl (12.5-18.0); Mean Cell Volume 86.5 fl (78-100); Mean Corpuscular Hemoglobin 28.5 pg (26-32); Mean Platelet Volume 9.8 fl (6-9.5); Platelet Count 176 K/mm3 (150-450); Red Blood Count 4.07 M/mm3 (4.1-5.6); Red Cell Distribution Width 14.1 % (11.5-14.0); White Blood Count 7.4 K/mm3 (4.0-10.5)
[2017-05-21 05:40] LABS: BLOOD UREA NITROGEN 13 mg/dL (9-20); CHLORIDE 103 mEq/L (98-107); Calcium 8.6 mg/dL (8.5-10.1); Creatinine 1 1.22 mg/dl (0.55-1.30); EST GLOMERULAR FILTRATION RATE > 60 ML/MIN; Glucose 165 MG/DL (70-110); SODIUM 140 mEq/L (136-145)
[2017-05-21] MEDS: PROVENTIL 2.5 MG/3 ML NEB IH SCH ×3 (07:06→19:16)
[2017-05-21 07:38] LABS: Eosinophil 1 % (0.00-3.0); Lymphocytes 18 % (24-44); Monocyte 7 % (0.0-12.0); Neutrophils 74 % (36.-66.); Platelet Estimate NORMAL (NORMAL); Total Cells Counted 100
[2017-05-21] MEDS: ENOXAPARIN SODIUM SQ SCH (09:28)
[2017-05-21] MEDS: Catapres 0.1 MG PO SCH ×2 (09:28→21:41)
[2017-05-21] MEDS: Coreg 6.25 MG PO SCH ×2 (09:28→21:41)
[2017-05-21] MEDS: PROTONIX 40 MG IV IV SCH (09:28)
--- NOTE | 2017-05-21 10:41 | PCM.NOTE ---
Date and Time: 05/21/17 [facility] Subjective Assessment: He reports he was able to eat and has not needed his pain medication as much. He denies seeing blood in his urine. He thinks all of this may have been triggered by eating at [employer]. - Review of Systems Constitutional: No Symptoms Eyes: No Symptoms Ears, Nose, & Throat: No Symptoms Respiratory: No Symptoms Cardiac: No Symptoms Abdominal/Gastrointestinal: Abdominal Pain Genitourinary Symptoms: No Symptoms Musculoskeletal: No Symptoms Skin: No Symptoms Objective Exam General Appearance: no apparent distress, alert Neurologic Exam: alert, cooperative, normal mood/affect Skin Exam: normal color, warm, dry, No rash Respiratory Exam: normal breath sounds, lungs clear, No crackles/rales, No rhonchi, No wheezing Cardiovascular Exam: regular rate/rhythm, normal heart sounds, No murmur, No friction rub, No gallop Gastrointestinal/Abdomen Exam: soft, normal bowel sounds, No tenderness, No distention, No mass Extremity Exam: normal inspection, other (no c/c/e) OBJECTIVE DATA Vital Signs: Vital Signs - 24 hr Temp Pulse Resp BP Pulse Ox 05/21/17 08:00 98 05/21/17 07:00 97.7 F 79 18 154/84 98 05/21/17 06:00 79 16 97 05/21/17 05:42 98 05/21/17 04:00 97.9 F 78 18 148/83 97 05/20/17 23:44 97.8 F 93 H 18 124/68 96 05/20/17 20:38 98.8 F 89 16 142/81 97 05/20/17 20:00 97 05/20/17 19:29 83 20 97 05/20/17 16:05 98.1 F 88 18 143/78 98 05/20/17 16:00 98.6 F 90 16 184/86 98 05/20/17 12:49 95 H 16 96 05/20/17 11:45 98.5 F 98 H 18 129/73 95 Oxygen-Last 24 hours O2 Percentage 2 Liters = 28% O2 Percentage 2 Liters = 28% O2 Percentage 2 Liters = 28% O2 Percentage 2 Liters = 28% O2 Percentage 2 Liters = 28% O2 Percentage 2 Liters = 28% Pain Assessment - Last Documented Pain Intensity 0 Pain Scale Used 0-10 Pain Scale Intake and Output: Intake & Output 05/19/17 05/20/17 05/21/17 05/22/17 06:59 06:59 06:59 06:59 Intake Total 573 6168 3961 360 Output Total 1498 8211 5730 950 Balance -1951 -392 1191 -590 Weight 115.5 kg Lab Results: Accuchecks Date 05/21/17 Date 05/20/17 Time 07:30 Time 11:30 Accucheck Value: 162 Accucheck Value: 81 Accucheck Value: 128 Accucheck Value: 140 Lab Results-Last 24 Hours 05/20/17 05/20/17 05/21/17 Range/Units 05:20 14:00 05:20 WBC 7.4 (4.0-10.5) K/mm3 RBC 4.07 L (4.1-5.6) M/mm3 Hgb 11.6 L (12.5-18.0) gm/dl Hct 35.2 L (42-50) % MCV 86.5 (78-100) fl MCH 28.5 (26-32) pg MCHC 33.0 (32-36) g/dl RDW 14.1 H (11.5-14.0) % Plt Count 176 (150-450) K/mm3 MPV 9.8 H (6-9.5) fl Segmented Neutrophils 74 H (36.-66.) % Lymphocytes (Manual) 18 L (24-44) % Monocytes (Manual) 7 (0.0-12.0) % Eosinophils (Manual) 1 (0.00-3.0) % Differential Comment NORMAL Platelet Estimate NORMAL (NORMAL) Sodium (136-145) mEq/L Potassium (3.5-5.1) mEq/L Chloride (98-107) mEq/L Carbon Dioxide (21-32) mEq/L Anion Gap (5-15) MEQ/L BUN (9-20) mg/dL Creatinine (0.55-1.30) mg/dl Estimated GFR ML/MIN Glucose (70-110) MG/DL Hemoglobin A1c 7.4 H (4.5-6.0) Calcium (8.5-10.1) mg/dL Ur Collection Type CLEAN CATCH Urine Color YELLOW (YELLOW) Urine Appearance HAZY (CLEAR) Urine pH 5.0 (5-6) Ur Specific Newton 1.020 (1.005-1.025) Urine Protein 100 (Negative) Urine Ketones NEGATIVE (NEGATIVE) Urine Blood 250 (0-5) Ralph/ul Urine Nitrite NEGATIVE (NEGATIVE) Urine Bilirubin NEGATIVE (NEGATIVE) Urine Urobilinogen NORMAL (0-1) mg/dL Ur Leukocyte Esterase 1+ (NEGATIVE) Urine Microscopic RBC 25-50 (0-2) /HPF Urine Microscopic WBC 25-50 (0-5) /HPF Ur Epithelial Cells FEW (FEW) /HPF Urine Bacteria MODERATE (NEGATIVE) /HPF Urine Mucus MODERATE (NEGATIVE) /HPF Urine Glucose 250 (NEGATIVE) mg/dL Specimen Received 05-20-17 1400 05/21/17 Range/Units 05:20 WBC (4.0-10.5) K/mm3 RBC (4.1-5.6) M/mm3 Hgb (12.5-18.0) gm/dl Hct (42-50) % MCV (78-100) fl MCH (26-32) pg MCHC (32-36) g/dl RDW (11.5-14.0) % Plt Count (150-450) K/mm3 MPV (6-9.5) fl Segmented Neutrophils (36.-66.) % Lymphocytes (Manual) (24-44) % Monocytes (Manual) (0.0-12.0) % Eosinophils (Manual) (0.00-3.0) % Differential Comment Platelet Estimate (NORMAL) Sodium 140 (136-145) mEq/L Potassium 4.0 (3.5-5.1) mEq/L Chloride 103 (98-107) mEq/L Carbon Dioxide 30.0 (21-32) mEq/L Anion Gap 11.0 (5-15) MEQ/L BUN 13 (9-20) mg/dL Creatinine 1.22 (0.55-1.30) mg/dl Estimated GFR > 60 ML/MIN Glucose 165 H (70-110) MG/DL Hemoglobin A1c (4.5-6.0) Calcium 8.6 (8.5-10.1) mg/dL Ur Collection Type Urine Color (YELLOW) Urine Appearance (CLEAR) Urine pH (5-6) Ur Specific Newton (1.005-1.025) Urine Protein (Negative) Urine Ketones (NEGATIVE) Urine Blood (0-5) Ralph/ul Urine Nitrite (NEGATIVE) Urine Bilirubin (NEGATIVE) Urine Urobilinogen (0-1) mg/dL Ur Leukocyte Esterase (NEGATIVE) Urine Microscopic RBC (0-2) /HPF Urine Microscopic WBC (0-5) /HPF Ur Epithelial Cells (FEW) /HPF Urine Bacteria (NEGATIVE) /HPF Urine Mucus (NEGATIVE) /HPF Urine Glucose (NEGATIVE) mg/dL Specimen Received Radiology Exams: Radiology Procedures Category Date Time Status GALLBLADDER [US] Routine Exams 05/19/17 09:45 Completed Renal Ultrasound [KIDNEY] [US] Routine Exams 05/22/17 08:00 Ordered Assessment/Plan (1) Abdominal pain Current Visit: Yes Status: Acute Assessment & Plan: The NG was removed yesterday and he was allowed to eat. He has good bowel sounds and states he is passing gas. Code(s): R10.9 - UNSPECIFIED ABDOMINAL PAIN (2) Hypertension Current Visit: Yes Status: Acute Assessment & Plan: Well controlled on current medications. Code(s): I10 - ESSENTIAL (PRIMARY) HYPERTENSION (3) Depression Current Visit: Yes Status: Acute Assessment & Plan: Continue home medication. Code(s): F32.9 - MAJOR DEPRESSIVE DISORDER, SINGLE EPISODE, UNSPECIFIED (4) Diabetes type 2, controlled Current Visit: Yes Status: Acute Qualifiers: Diabetes mellitus complication status: without complication Assessment & Plan: Controlled on current medication. Code(s): E11.9 - TYPE 2 DIABETES MELLITUS WITHOUT COMPLICATIONS (5) Hematuria Current Visit: Yes Status: Acute Code(s): R31.9 - HEMATURIA, UNSPECIFIED (6) Nephritis Current Visit: Yes Status: Acute Assessment & Plan: Repeat UA yesterday with continued RBC and WBC. Creatinine high but stable. Good urine output. Will check renal US Monday and ask for nephrology consult. Code(s): N05.9 - UNSP NEPHRITIC SYNDROME WITH UNSPECIFIED MORPHOLOGIC CHANGES
[2017-05-21] MEDS: Levofloxacin 500MG/100ML D5W 500 MG/100 ML BAG IV SCH (21:41)
[2017-05-22 06:18] LABS: Granulocyte Absolute (ANC) 3.86 (1.4-6.9); Hemoglobin 11.7 gm/dl (12.5-18.0); Mean Cell Volume 86.1 fl (78-100); Mean Corpuscular Hgb Concent. 32.5 g/dl (32-36); Mean Platelet Volume 10.9 fl (6-9.5); Platelet Count 189 K/mm3 (150-450); Red Blood Count 4.18 M/mm3 (4.1-5.6); Red Cell Distribution Width 13.8 % (11.5-14.0); White Blood Count 5.6 K/mm3 (4.0-10.5)
[2017-05-22 06:25] LABS: ANION GAP 11.2 MEQ/L (5-15); BLOOD UREA NITROGEN 11 mg/dL (9-20); CHLORIDE 104 mEq/L (98-107); Carbon Dioxide 30.9 mEq/L (21-32); Creatinine 1 1.12 mg/dl (0.55-1.30); EST GLOMERULAR FILTRATION RATE > 60 ML/MIN; Glucose 179 MG/DL (70-110); Potassium 4.5 mEq/L (3.5-5.1); SODIUM 142 mEq/L (136-145)
[2017-05-22] MEDS: PROVENTIL 2.5 MG/3 ML NEB IH SCH ×2 (06:35→12:56)
[2017-05-22 06:43] LABS: Mean Corpuscular Hemoglobin 27.9 pg (26-32)
--- NOTE | 2017-05-22 09:18 | XRAY ---
Indication: Abnormal CT. Two-dimensional renal sonogram performed. Comparison: None Both kidneys normal in reniform shape with normal color perfusion. Right kidney measures 13.5 x 5.5 x 6.3 cm and the left measures 14.2 x 6.7 x 5.6 cm. 3.4 cm left mid renal cyst. Smaller 2.2 cm right upper parapelvic cyst. No solid renal mass, hydronephrosis, or perinephric fluid. Corticomedullary differentiation preserved without cortical thinning. Images of the urinary bladder essentially decompressed. Impression: Bilateral renal cysts in a otherwise negative renal sonogram.
[2017-05-22] MEDS: Coreg 6.25 MG PO SCH (10:45)
[2017-05-22] MEDS: ENOXAPARIN SODIUM SQ SCH (10:45)
[2017-05-22] MEDS: PROTONIX 40 MG IV IV SCH (10:45)
[2017-05-22] MEDS: Catapres 0.1 MG PO SCH (10:45)
--- NOTE | 2017-05-22 10:46 | CONS ---
CONSULT DATE: 05/19/2017 HISTORY: The patient was normal until about Monday morning. He could not sleep and then he woke up. He had severe right lower quadrant pain. He had some fullness and discomfort. He subsequently presented to the emergency room. He had a CT scan show bilateral haziness of both kidneys otherwise fairly normal scan. He had a little bit of diarrhea but he usually has some intermittent mild diarrhea. He rarely has this very full sensation and he had substantial right lower quadrant pain. The right lower quadrant has pretty much cleared and it has moved up a little bit and a little more medial. He has no known history of kidney stone. He said he had a little dysuria here in the hospital that he had some burning with voiding. He is not passing gas currently. He has epigastric tube in place. He is alert and oriented. His two sons are present. He has not had an episode like this before. He was hospitalized some six to eight years ago with an episode of abdominal pain but it was different from this. He is having sweats but he does not specifically have any fever or temperature that he is aware of. He is slightly hungry. SOCIAL HISTORY: Negative tobacco. Negative ETOH. FAMILY HISTORY: Negative. PHYSICAL EXAMINATION: Moderately obese. Nasogastric tube is fairly generous but a clear green. It does not look particularly obstructive. ABDOMEN: Moderately distended but soft. He has no peritoneal signs. He did have a herniorrhaphy by Dr. Chase some 20 years ago. He has recurrence in the umbilical area that is still somewhat incarcerated but it seems to be omentum. It does seem like it is semi-reducible. Bilateral inguinal fat hernia on CT scan but I do not feel any significant hernia today. I do not feel tenderness in the right lower quadrant. I do not feel any mass. LAB DATA AND TESTS: His white blood cell count is minimally elevated. His urine a lot of hematuria but minimal pyuria. White blood cell count was only 11,000. He had been started on Levaquin. He is taking pain medication. IMPRESSION: Things point mainly to a urinary primary cause with an overlying ileus but things are less than clear. He certainly needs continued IV antibiotics, continued observation, rehydration, re-examination. He may need repeat CT scan prior to his disposition and discharge.
[2017-05-22 11:02] LABS: Eosinophil 6 % (0.00-3.0); Lymphocytes 15 % (24-44); Monocyte 8 % (0.0-12.0); Neutrophils 71 % (36.-66.)
[2017-05-22 11:03] LABS: Platelet Estimate NORMAL (NORMAL)
[2017-05-22] MEDS: NovoLOG Insulin SQ PRN (11:26)
[2017-05-22 11:27] VITALS: BP 129/71
--- NOTE | 2017-05-22 12:16 | PCM.DS ---
Discharge Summary Date of Admission: 05/18/17 22:17 Admitting Physician: PASCALE GROVES Consults: Consults on Case 05/19/17 08:21 Consult Surgery ROUTINE 05/21/17 10:36 Consult Nephrology ROUTINE Primary Care Provider: PASCALE GROVES Allergies Allergies silk Allergy (Severe, Verified 05/18/17 15:54) Swelling 1978 stiches caused swelling Sulfa (Sulfonamide Antibiotics) [Sulfa(Sulfonamide Antibiotics)] Allergy (Mild, Verified 05/18/17 15:54) Difficulty Breathing procaine HCl [From Novocain] Adverse Reaction (Mild, Verified 05/18/17 15:54) Rapid Heart Beat steroids Adverse Reaction (Severe, Uncoded 05/18/17 15:54) GI bleeding Hospital Summary - Hospital Course Hospital Course: patient was admitted with abdominal pain and flank pain, has improved since admission .urine culture was negative, CT scan shows nephritis. kidney u/s wnl. - Vitals & Intake/Output Vital Signs: Vital Signs Temperature 98.4 F 05/22/17 11:26 Pulse Rate 79 05/22/17 11:26 Respiratory Rate 20 05/22/17 11:26 Blood Pressure 129/71 05/22/17 11:26 O2 Sat by Pulse Oximetry 99 05/22/17 11:26 Oxygen-Last Documented O2 Percentage 2 Liters = 28% Intake & Output: Intake & Output 05/20/17 05/21/17 05/22/17 05/23/17 11:59 11:59 11:59 11:59 Intake Total 1758 4321 3133 Output Total 2750 3120 4050 Balance -992 1201 -917 - Lab Result Diagrams: 05/22/17 05:10 05/22/17 05:10 Lab Results-Last 24 Hrs: Accuchecks Date 05/22/17 Date 05/22/17 Date 05/21/17 Date 05/21/17 Time 16:00 Accucheck Value: 215 Accucheck Value: 167 Accucheck Value: 142 Accucheck Value: 152 Lab Results-Last 24 Hours 05/22/17 05/22/17 Range/Units 05:10 05:10 WBC 5.6 (4.0-10.5) K/mm3 RBC 4.18 (4.1-5.6) M/mm3 Hgb 11.7 L (12.5-18.0) gm/dl Hct 36.0 L (42-50) % MCV 86.1 (78-100) fl MCH 27.9 (26-32) pg MCHC 32.5 (32-36) g/dl RDW 13.8 (11.5-14.0) % Plt Count 189 (150-450) K/mm3 MPV 10.9 H (6-9.5) fl Segmented Neutrophils 71 H (36.-66.) % Lymphocytes (Manual) 15 L (24-44) % Monocytes (Manual) 8 (0.0-12.0) % Eosinophils (Manual) 6 H (0.00-3.0) % Differential Comment NORMAL Platelet Estimate NORMAL (NORMAL) Sodium 142 (136-145) mEq/L Potassium 4.5 (3.5-5.1) mEq/L Chloride 104 (98-107) mEq/L Carbon Dioxide 30.9 (21-32) mEq/L Anion Gap 11.2 (5-15) MEQ/L BUN 11 (9-20) mg/dL Creatinine 1.12 (0.55-1.30) mg/dl Estimated GFR > 60 ML/MIN Glucose 179 H (70-110) MG/DL Calcium 9.0 (8.5-10.1) mg/dL Micro Results-Entire Visit: Accuchecks Date 05/22/17 Date 05/22/17 Date 05/21/17 Date 05/21/17 Time 16:00 Accucheck Value: 215 Accucheck Value: 167 Accucheck Value: 142 Accucheck Value: 152 - Radiology Exams Ordered Rad Exams-Entire Visit: Radiology Procedures Category Date Time Status Renal Ultrasound [KIDNEY] [US] Routine Exams 05/22/17 08:00 Completed - Procedures and Test Procedures and Tests throughout Hospitalization: Therapy Orders & Screens 05/18/17 21:32 Oxygen NASAL CANNULA 2 lpm Comment: 05/19/17 08:24 EKG ROUTINE Comment: Diagnosis: Acute abdominal pain/early right pyelonephritis 05/19/17 17:00 Respiratory Nebulizer PRN Comment: Diagnosis: Acute abdominal pain/early right pyelonephritis Respiratory Nebulizer TID Comment: Diagnosis: Acute abdominal pain/early right pyelonephritis 05/19/17 17:01 Peak Expiratory Flow Rate DAILY Comment: Reason For Exam: Diagnosis: Acute abdominal pain/early right pyelonephritis Discharge Exam General Appearance: no apparent distress, alert Respiratory Exam: normal breath sounds, lungs clear, No respiratory distress Cardiovascular Exam: regular rate/rhythm, normal heart sounds Gastrointestinal/Abdomen Exam: soft, No tenderness, No mass Extremity Exam: normal inspection, normal range of motion Final Diagnosis/Problem List - Final Discharge Diagnosis/Problem (1) Abdominal pain Current Visit: Yes Status: Acute (2) Hematuria Current Visit: Yes Status: Acute (3) Hypertension Current Visit: Yes Status: Acute (4) Nephritis Current Visit: Yes Status: Acute - Discharge Disposition: Home, Self-Care Condition: Stable Prescriptions: Continue Carvedilol 6.25 mg [Coreg 6.25 MG] 6.25 mg PO BID Fluoxetine HCl 20 mg [Prozac 20 MG] 20 mg PO DAILY Ferrous Sulfate 325 mg [Feosol 325 mg] 1 tab PO DAILY Clonidine HCl 0.1 mg [Catapres 0.1 MG] 0.2 mg PO BID Hydrochlorothiazide 25 mg [hydroDIURIL 25 MG] 12.5 mg PO DAILY Metformin HCl 500 mg [Glucophage 500 MG] 500 mg PO BID Montelukast Sodium [Singulair] 10 mg PO DAILY Follow up with: PASCALE GROVES MD [Primary Care Provider] - 1 Week
[2017-05-22 12:59] VITALS: PULSE 87; O2SAT 97
== END 2017-05-22 13:55 | disposition home or self-care (01) | DRG 392 ==
LOC: ED 15:32 → MED SURG 22:17
PROVIDERS: ADMIT Family Medicine; ATTEND Family Medicine
DX: R10.31 Right lower quadrant pain (principal); N10 Acute pyelonephritis; R10.9 Unspecified abdominal pain; R31.9 Hematuria, unspecified; I10 Essential (primary) hypertension; J45.909 Unspecified asthma, uncomplicated; K21.9 Gastro-esophageal reflux disease without esophagitis; N05.9 Unspecified nephritic syndrome with unspecified morphologic changes; K59.00 Constipation, unspecified; Z79.899 Other long term (current) drug therapy; F32.9 Major depressive disorder, single episode, unspecified; E11.9 Type 2 diabetes mellitus without complications; Z79.4 Long term (current) use of insulin; Z86.718 Personal history of other venous thrombosis and embolism; Z86.711 Personal history of pulmonary embolism
CPT/HCPCS: 36000; 36415; 51702; 74022; 74177; 76705; 76770; 80048; 80053; 81000; 82150; 82962; 83036; 83690; 85025; 87040; 87086; 93005; 94150; 94640; 94760; 94762; 96374; 96375; 99285; J0360; J1170; J1650; J1956; J2270; J2405; A9270-GY

== ENCOUNTER 2017-10-22 18:12 | Emergency (ER) | payer MEDICARE ==
[2017-10-22] MEDS ORDERED: BENADRYL 50 MG/ML IM ONE (18:35)
[2017-10-22] MEDS ORDERED: EPINEPHRINE 1MG/ML AMP IM ONE (18:35)
[2017-10-22] MEDS ORDERED: EPINEPHRINE 1MG/ML AMP ONE (18:42)
[2017-10-22] MEDS ORDERED: BENADRYL 50 MG/ML ONE (18:42)
--- NOTE | 2017-10-22 19:05 | ERPHSYRPT ---
- History of Present Illness Time Seen by Provider: 10/22/17 18:30 Source: patient Exam Limitations: clinical condition Patient Subjective Stated Complaint: states was bitten by an insect just prior to arrival. swollen area and tenderness to left jaw. Triage Nursing Assessment: ambulated to room per self. skin w/d, color normal, resp nonlabored. moderate swelling and redness noted to left jaw. tender to touch. Physician History: PATIENT WITH A HISTORY OF HYPERTENSION AND DIABETES WAS BITTEN OVER LEFT CHEEK BY INSECT 30 MINUTES PRIOR TO ARRIVAL WITH ONSET OF LEFT CHEEK SWELLING ASSOCIATED WITH SLIGHT ITCHING. DENIES FACIAL ITCHING, DIFFICULTY SWALLOWING OR BREATHING. Timing/Duration: today Severity: moderate Associated Symptoms: other (FACIAL SWELLING) Allergies/Adverse Reactions: silk Allergy (Severe, Verified 10/22/17 18:24) Swelling 1978 stiches caused swelling Sulfa (Sulfonamide Antibiotics) [Sulfa(Sulfonamide Antibiotics)] Allergy (Mild, Verified 10/22/17 18:24) Difficulty Breathing procaine HCl [From Novocain] Adverse Reaction (Mild, Verified 10/22/17 18:24) Rapid Heart Beat steroids Adverse Reaction (Severe, Uncoded 05/18/17 15:54) GI bleeding Home Medications: Carvedilol 6.25 mg [Coreg 6.25 MG] 6.25 mg PO BID 03/29/12 [History] Fluoxetine HCl 20 mg [Prozac 20 MG] 20 mg PO DAILY 02/15/13 [History] Clonidine HCl 0.1 mg [Catapres 0.1 MG] 0.2 mg PO BID 08/25/15 [History] Ferrous Sulfate 325 mg [Feosol 325 mg] 1 tab PO DAILY 08/25/15 [History] Hydrochlorothiazide 25 mg [hydroDIURIL 25 MG] 12.5 mg PO DAILY 08/25/15 [ History] Metformin HCl 500 mg [Glucophage 500 MG] 1,000 mg PO BID 05/13/16 [History ] Montelukast Sodium [Singulair] 10 mg PO DAILY 05/13/16 [History] Atorvastatin Calcium [Lipitor] 10 mg PO DAILY 10/22/17 [History] Glipizide 5 mg PO DAILY 10/22/17 [History] Hx Tetanus, Diphtheria Vaccination/Date Given: Yes Hx Influenza Vaccination/Date Given: Yes Hx Pneumococcal Vaccination/Date Given: Yes Immunizations Up to Date: Yes - Review of Systems Constitutional: No Fever, No Chills Eyes: No Symptoms Ears, Nose, & Throat: No Symptoms Respiratory: No Symptoms, No Cough, No Dyspnea Cardiac: No Symptoms, No Chest Pain, No Edema, No Syncope Abdominal/Gastrointestinal: No Abdominal Pain, No Nausea, No Vomiting, No Diarrhea Genitourinary Symptoms: No Symptoms, No Dysuria Musculoskeletal: No Symptoms, No Back Pain, No Neck Pain Skin: Other (LEFT FACIAL SWELLING), No Rash Neurological: No Dizziness, No Focal Weakness, No Sensory Changes Psychological: No Symptoms Endocrine: No Symptoms All Other Systems: Reviewed and Negative - Past Medical History Pertinent Past Medical History: Yes Neurological History: No Pertinent History ENT History: Macular Degeneration Cardiac History: Deep Vein Thrombosis, Hypertension Respiratory History: Asthma, Pneumonia, Other Endocrine Medical History: Diabetes Type II, Other Musculoskeletal History: No Pertinent History GI Medical History: GERD, GI Bleed, Hernia History: Other Psycho-Social History: Anxiety, Depression Male Reproductive Disorders: Prostate Problems Other Medical History: KIDNEY CYST - Past Surgical History Past Surgical History: Yes Neuro Surgical History: No Pertinent History Cardiac: No Pertinent History Respiratory: No Pertinent History Gastrointestinal: Hernia Repair Genitourinary: No Pertinent History Musculoskeletal: No Pertinent History Male Surgical History: Vasectomy Other Surgical History: repair to penis d/t injury several years ago vasectomy times 2 - Social History Smoking Status: Never smoker Exposure to second hand smoke: No Drug Use: none Patient Lives Alone: Yes - Nursing Vital Signs Nursing Vital Signs: Initial Vital Signs Temperature 98.3 F 10/22/17 18:26 Pulse Rate 96 H 10/22/17 18:26 Respiratory Rate 18 10/22/17 18:26 Blood Pressure 155/91 10/22/17 18:26 O2 Sat by Pulse Oximetry 98 10/22/17 18:26 Pain Scale Pain Intensity 5 - Physical Exam General Appearance: no apparent distress, alert Eye Exam: PERRL/EOMI, eyes nml inspection Ears, Nose, Throat Exam: normal ENT inspection, TMs normal, pharynx normal ( THERE IS NO POST PHARYNGEAL ANGIOEDEMA), moist mucous membranes, other (THERE IS SWELLING OVER LEFT PAROTID GLAND WITH SLIGHT ERYTHEMA AND A 1MM ABRASION) Neck Exam: normal inspection, non-tender, supple, full range of motion Respiratory Exam: normal breath sounds, lungs clear, No respiratory distress Cardiovascular Exam: regular rate/rhythm, normal heart sounds, normal peripheral pulses Gastrointestinal/Abdomen Exam: soft, normal bowel sounds, No tenderness, No mass Back Exam: normal inspection, normal range of motion, No CVA tenderness, No vertebral tenderness Extremity Exam: normal inspection, normal range of motion, pelvis stable Neurologic Exam: alert, oriented x 3, cooperative, normal mood/affect, nml cerebellar function, nml station & gait, sensation nml, No motor deficits Skin Exam: normal color, warm, dry, No rash Lymphatic Exam: No adenopathy SpO2 Interpretation: normal SpO2: 98 Oxygen Delivery: Room Air Ordered Tests: Active Orders 24 hr Category Date Time Status Director Regulatory Affairs STAT Care 10/22/17 18:37 Active Medication Summary Discontinued Medications Generic Name Dose Route Start Last Admin Trade Name Freq PRN Reason Stop Dose Admin Diphenhydramine HCl 50 mg 10/22/17 18:35 10/22/17 18:51 Benadryl 50 Mg/Ml IM 10/22/17 18:36 50 mg STAT ONE Administration Diphenhydramine HCl Confirm 10/22/17 18:42 Benadryl 50 Mg/Ml Administered 10/22/17 18:43 Dose 50 mg .ROUTE .STK-MED ONE Epinephrine HCl 0.2 mg 10/22/17 18:35 10/22/17 18:51 Epinephrine 1mg/Ml Amp IM 10/22/17 18:36 0.2 mg STAT ONE Administration Epinephrine HCl Confirm 10/22/17 18:42 Epinephrine 1mg/Ml Amp Administered 10/22/17 18:43 Dose 1 mg .ROUTE .STK-MED ONE - Progress Progress: unchanged Progress Note: 10/22/17 19:11 PATIENT HAS ALLERGY TO STEROIDS, ADMINISTERED EPINEPHRINE 0.2MG IM AND BENADRYL 50MG IM, ICE PACK APPLIED OVER FACIAL SWELLING Counseled pt/family regarding: diagnosis, need for follow-up - Departure Time of Disposition: 19:40 Departure Disposition: Home Clinical Impression: ALLERGIC REACTION INSECT BITE Condition: Stable Critical Care Time: No Referrals: PASCALE GROVES MD [Primary Care Provider] - Additional Instructions: TAKE OVER THE COUNTER BENADRYL 50MG EVERY 4 HOURS NEEDED FOR ITCHING. APPLY ICE OVER LEFT CHEEK SWELLING EVERY 4 HOURS, 30 MINUTES FOR 48 HOURS. ANTIBIOTIC AUGMENTIN 875MG TWICE DAILY FOR 10 DAYS. RETURN TO EMERGENCY FOR ONSET OF DIFFICULTY BREATHING, SWALLOWING OR INCREASING FACIAL SWELLING. Prescriptions: Amox Tr/Potass Clav. 875 mg [Augmentin 875-125 Tablet] 875 mg PO BID #20 tablet
[2017-10-22] MEDS ORDERED: Augmentin 875-125 Tablet PO ONE (19:16)
[2017-10-22] MEDS ORDERED: Augmentin 875-125 Tablet ONE (19:30)
[2017-10-22 19:35] VITALS: BP 126/83; PULSE 88; O2SAT 96
== END 2017-10-22 19:38 | disposition home or self-care (01) ==
LOC: ED 18:12
DX: R22.0 Localized swelling, mass and lump, head (principal); T63.481A Toxic effect of venom of other arthropod, accidental (unintentional), initial encounter; I10 Essential (primary) hypertension; E11.9 Type 2 diabetes mellitus without complications; Z79.4 Long term (current) use of insulin; J45.909 Unspecified asthma, uncomplicated; R13.10 Dysphagia, unspecified; K21.9 Gastro-esophageal reflux disease without esophagitis; Z79.899 Other long term (current) drug therapy
CPT/HCPCS: 93041; 96372; 99284; J0171; J1200; A9270-GY

== ENCOUNTER 2018-12-04 10:31 | Observation (INO) | payer MEDICARE ==
[2018-12-04] MEDS ORDERED: Sodium Chloride 0.9% 1000 ML 1,000 ML IV STA (10:45)
--- NOTE | 2018-12-04 10:52 | ERPHSYRPT ---
- History of Present Illness Time Seen by Provider: 12/04/18 10:45 Historian: patient Exam Limitations: no limitations Physician History: Right lower abdominal pain and right lower leg pain since 16:00 on 12/03/2018. Patient has a history of a DVT. Timing/Duration: yesterday Activities at Onset: none Quality: aching, stabbing Abdominal Pain Onset Location: RLQ Pain Radiation: back Severity of Pain-Max: moderate Severity of Pain-Current: moderate Modifying Factors: Improves With: nothing Associated Symptoms: other (right lower posterior leg pain), No back, No chest pain, No diaphoresis, No diarrhea, No fever/chills, No fatigue, No headache, No heartburn, No loss of appetite, No nausea, No neck pain, No rash, No shortness of breath, No syncope, No testicular pain, No vomiting, No weakness Previous symptoms: same symptoms as today, no recent treatment Allergies/Adverse Reactions: silk Allergy (Severe, Verified 12/04/18 11:11) Swelling 1978 stiches caused swelling Sulfa (Sulfonamide Antibiotics) [Sulfa(Sulfonamide Antibiotics)] Allergy (Mild, Verified 12/04/18 11:11) Difficulty Breathing procaine HCl [From Novocain] Adverse Reaction (Mild, Verified 12/04/18 11:11) Rapid Heart Beat steroids Adverse Reaction (Severe, Uncoded 05/18/17 15:54) GI bleeding Home Medications: Carvedilol 6.25 mg [Coreg 6.25 MG] 6.25 mg PO BID 03/29/12 [History] Fluoxetine HCl 20 mg [Prozac 20 MG] 20 mg PO DAILY 02/15/13 [History] Clonidine HCl 0.1 mg [Catapres 0.1 MG] 0.2 mg PO BID 08/25/15 [History] Ferrous Sulfate 325 mg [Feosol 325 mg] 1 tab PO DAILY 08/25/15 [History] Hydrochlorothiazide 25 mg [hydroDIURIL 25 MG] 12.5 mg PO DAILY 08/25/15 [ History] Metformin HCl 500 mg [Glucophage 500 MG] 1,000 mg PO BID 05/13/16 [History ] Montelukast Sodium [Singulair] 10 mg PO DAILY 05/13/16 [History] Atorvastatin Calcium [Lipitor] 10 mg PO DAILY 10/22/17 [History] Glipizide 5 mg PO DAILY 10/22/17 [History] Albuterol Common Canister [Proventil Common Canister] 2 puffs PRN [History] Diclofenac Sodium Gel [Voltaren GEL] 200 gm TP PRN 12/04/18 [History] Hx Tetanus, Diphtheria Vaccination/Date Given: Yes Hx Influenza Vaccination/Date Given: Yes Hx Pneumococcal Vaccination/Date Given: Yes - Review of Systems Constitutional: No Fever, No Chills Eyes: No Symptoms Ears, Nose, & Throat: No Symptoms Respiratory: No Cough, No Dyspnea Cardiac: No Chest Pain, No Edema, No Syncope Abdominal/Gastrointestinal: Abdominal Pain, No Nausea, No Vomiting, No Diarrhea , No Hematemesis, No Hematochezia, No Melena Genitourinary Symptoms: No Dysuria, No Hematuria, No Urinary Retention, No Flank Pain, No Testicle Pain Musculoskeletal: No Back Pain, No Neck Pain Skin: No Rash Neurological: No Dizziness, No Focal Weakness, No Sensory Changes Psychological: No Symptoms, No Anxiety Endocrine: No Symptoms Hematologic/Lymphatic: No Easy Bleeding, No Easy Bruising All Other Systems: Reviewed and Negative - Past Medical History Pertinent Past Medical History: Yes Neurological History: No Pertinent History ENT History: Macular Degeneration Cardiac History: Deep Vein Thrombosis, Hypertension Respiratory History: Asthma, Pneumonia, Other Endocrine Medical History: Diabetes Type II, Other Musculoskeletal History: No Pertinent History GI Medical History: GERD, GI Bleed, Hernia History: Other Psycho-Social History: Anxiety, Depression Male Reproductive Disorders: Prostate Problems Other Medical History: KIDNEY CYST - Past Surgical History Past Surgical History: Yes Neuro Surgical History: No Pertinent History Cardiac: No Pertinent History Respiratory: No Pertinent History Gastrointestinal: Hernia Repair Genitourinary: No Pertinent History Musculoskeletal: No Pertinent History Male Surgical History: Vasectomy Other Surgical History: repair to penis d/t injury several years ago vasectomy times 2 - Social History Smoking Status: Never smoker Exposure to second hand smoke: No Drug Use: none Patient Lives Alone: Yes - Nursing Vital Signs Nursing Vital Signs: Initial Vital Signs Temperature 98.0 F 12/04/18 10:40 Pulse Rate 91 H 12/04/18 10:40 Respiratory Rate 24 12/04/18 10:40 Blood Pressure 171/102 12/04/18 10:40 O2 Sat by Pulse Oximetry 98 12/04/18 10:40 Pain Scale Pain Intensity 8 - Physical Exam General Appearance: no apparent distress, alert Eye Exam: PERRL/EOMI, eyes nml inspection Ears, Nose, Throat Exam: pharynx normal, moist mucous membranes, No dry mucous membranes Neck Exam: normal inspection, non-tender, supple, full range of motion Respiratory Exam: normal breath sounds, lungs clear, No respiratory distress Cardiovascular Exam: regular rate/rhythm, normal heart sounds Gastrointestinal/Abdomen Exam: soft, tenderness (RLQ ), No mass, No rebound, No hernia Back Exam: normal inspection, normal range of motion, No CVA tenderness, No vertebral tenderness Extremity Exam: normal inspection, normal range of motion, pelvis stable Neurologic Exam: alert, oriented x 3, cooperative, normal mood/affect, nml cerebellar function, sensation nml, No motor deficits Skin Exam: normal color, warm, dry - Radiology Ultrasound Exam Venous Lower Extremity Ultrasound: negative (negative for evidence for DVT), Other (pper radiologist's interpretation: 3 cm oval-shaped soft tissue mass in the posterior aspect of the lower pole of the left kidney. Further evaluation with IV contrast CT or MRI of the kidneys is recommended. A simple cyst of the posterior margin of the mid aspect of the right kidney with some bilateral perirenal stranding, right greater than left. These findings are unchanged. 2 mm calcification of the posterior left lateral margin of the urinary bladder. Possible tiny nonobstructing left UVJ kidney stone or a tiny bladder calcification adjacent to the distal left ureter. Soft tissue lung nodule measuring almost 6 mm in diameter which is probably less than 1 mm larger than that seen on 05/16/2017. Diffuse fatty dilatation the liver, mild ventral periumbilical fat-containing hernia, and prominent bilateral fat containing hernias, right greater than left , are again seen. No findings of acute appendicitis. Unchanged focal findings with marked degenerative disease of L5-S1 with minimal anterolisthesis of L5 over S1 and bilateral spondylosis of L5. Small anterior lateral surface is seen within the visualized thoracolumbar spine.) Ordered Tests: Active Orders 24 hr Category Date Time Status NPO (ED) STAT Care 12/04/18 10:45 Active Re-Check Vital Signs STAT Care 12/04/18 10:45 Active ABDOMEN AND PELVIS W/0 CONTRAS [CT] Stat Exams 12/04/18 11:37 Completed VENOUS UNILAT/LIMITED EXTREMIT [US] Stat Exams 12/04/18 10:49 Completed AMYLASE Stat Lab 12/04/18 11:07 Completed CBC W DIFF Stat Lab 12/04/18 11:07 Completed CK-Creatinine Phosphokinase Stat Lab 12/04/18 11:07 Completed CMP Stat Lab 12/04/18 11:07 Completed LIPASE Stat Lab 12/04/18 11:07 Completed Lactic Acid Stat Lab 12/04/18 11:13 Completed Lactic Acid Stat Lab 12/04/18 13:15 Completed MAGNESIUM Stat Lab 12/04/18 11:07 Completed UA W/RFX UR CULTURE Stat Lab 12/04/18 13:10 Ordered Transfer Order Routine Transfer 12/04/18 Ordered Medication Summary Discontinued Medications Generic Name Dose Route Start Last Admin Trade Name Freq PRN Reason Stop Dose Admin Sodium Chloride 1,000 mls @ 999 mls/hr 12/04/18 10:45 12/04/18 13:27 Sodium Chloride 0.9% 1000 Ml IV 12/04/18 11:45 Infused .Q1H1M STA Infusion Sodium Chloride Confirm 12/04/18 11:18 Sodium Chloride 0.9% 1000 Ml Administered 12/04/18 11:19 Dose 1,000 mls @ ud .ROUTE .STK-MED ONE Magnesium Sulfate/Dextrose Confirm 12/04/18 12:17 Magnesium 1 Gm / 100 Ml D5w Administered 12/04/18 12:18 Dose 100 mls @ ud IV .STK-MED ONE Sodium Chloride Confirm 12/04/18 12:25 Sodium Chloride 0.9% 100 Ml Ivpb Administered 12/04/18 12:26 Dose 100 mls @ ud IV .STK-MED ONE Sodium Chloride 100 mls @ 200 mls/hr 12/04/18 12:24 12/04/18 13:26 Sodium Chloride 0.9% 100 Ml Ivpb IV 12/04/18 12:53 Infused .Q30M ONE Infusion Magnesium Sulfate 1 gm 12/04/18 12:06 12/04/18 12:20 Magnesium Sulfate 1 Gm/2 Ml Vial IV 12/04/18 12:07 1 gm ONCE ONE Administration Magnesium Sulfate Confirm 12/04/18 12:19 Magnesium Sulfate 1 Gm/2 Ml Vial Administered 12/04/18 12:20 Dose 1 gm .ROUTE .STK-MED ONE Lab/Rad Data: Laboratory Result Diagrams 12/04/18 11:07 12/04/18 11:07 Laboratory Results 12/04/18 12/04/18 12/04/18 Range/Units 13:15 11:13 11:07 WBC (4.0-10.5) K/mm3 RBC (4.1-5.6) M/mm3 Hgb (12.5-18.0) gm/dl Hct (42-50) % MCV (78-100) fl MCH (26-32) pg MCHC (32-36) g/dl RDW (11.5-14.0) % Plt Count (150-450) K/mm3 MPV (6-9.5) fl Gran % (36.0-66.0) % Eos # (Auto) (0-0.5) Absolute Lymphs (auto) (1.0-4.6) Absolute Monos (auto) (0.0-1.3) Lymphocytes % (24.0-44.0) % Monocytes % (0.0-12.0) % Eosinophils % (0.00-5.0) % Basophils % (0.0-0.4) % Absolute Granulocytes (1.4-6.9) Basophils # (0-0.4) Sodium (137-145) mmol/L Potassium (3.5-5.1) mmol/L Chloride (98-107) mmol/L Carbon Dioxide (22-30) mmol/L Anion Gap (5-15) MEQ/L BUN (9-20) mg/dL Creatinine (0.66-1.25) mg/dL Estimated GFR ML/MIN Glucose (74-106) mg/dL Lactic Acid 1.5 2.2 H (0.4-2.0) Calcium (8.4-10.2) mg/dL Magnesium (1.6-2.3) mg/dL Total Bilirubin (0.2-1.3) mg/dL AST (17-59) U/L ALT (0-50) U/L Alkaline Phosphatase (38-126) U/L Creatine Kinase 120 (55-170) U/L Serum Total Protein (6.3-8.2) g/dL Albumin (3.5-5.0) g/dL Amylase (30-110) U/L Lipase (23-300) U/L 12/04/18 12/04/18 12/04/18 Range/Units 11:07 11:07 11:07 WBC 11.5 H (4.0-10.5) K/mm3 RBC 4.68 (4.1-5.6) M/mm3 Hgb 13.0 (12.5-18.0) gm/dl Hct 40.0 L (42-50) % MCV 85.5 (78-100) fl MCH 27.8 (26-32) pg MCHC 32.5 (32-36) g/dl RDW 14.4 H (11.5-14.0) % Plt Count 211 (150-450) K/mm3 MPV 10.5 H (6-9.5) fl Gran % 77.4 H (36.0-66.0) % Eos # (Auto) 0.40 (0-0.5) Absolute Lymphs (auto) 1.13 (1.0-4.6) Absolute Monos (auto) 1.03 (0.0-1.3) Lymphocytes % 9.8 L (24.0-44.0) % Monocytes % 9.0 (0.0-12.0) % Eosinophils % 3.5 (0.00-5.0) % Basophils % 0.3 (0.0-0.4) % Absolute Granulocytes 8.90 H (1.4-6.9) Basophils # 0.04 (0-0.4) Sodium 139 (137-145) mmol/L Potassium 4.6 (3.5-5.1) mmol/L Chloride 101 (98-107) mmol/L Carbon Dioxide 27 (22-30) mmol/L Anion Gap 15.2 H (5-15) MEQ/L BUN 20 (9-20) mg/dL Creatinine 1.68 H (0.66-1.25) mg/dL Estimated GFR 43.0 ML/MIN Glucose 111 H (74-106) mg/dL Lactic Acid (0.4-2.0) Calcium 10.4 H (8.4-10.2) mg/dL Magnesium 1.4 L (1.6-2.3) mg/dL Total Bilirubin 0.40 (0.2-1.3) mg/dL AST 27 (17-59) U/L ALT 28 (0-50) U/L Alkaline Phosphatase 67 (38-126) U/L Creatine Kinase (55-170) U/L Serum Total Protein 7.5 (6.3-8.2) g/dL Albumin 4.2 (3.5-5.0) g/dL Amylase 77 (30-110) U/L Lipase 78 (23-300) U/L - Progress Progress: improved, re-examined Progress Note: 12/04/18 12:22 Patient's abdominal pain has resolved without any pain medication 12/04/18 13:[address] Hammond, Hospitalist, patient's presentation, lab and imaging reports. Dr Hammond accepted the patient for observation to [facility]. Discussed with : Jessie Will see patient in: hospital (observation) Counseled pt/family regarding: lab results, diagnosis, need for follow-up, rad results - Departure Departure Disposition: Home, Observation, Extended Care Facility Clinical Impression: MARY (acute kidney injury), Right lower quadrant abdominal pain, Ventral hernia without obstruction or gangrene, Left kidney mass, Cyst of right kidney, Lung nodule < 6cm on CT, Fatty liver, Hypomagnesemia Bilateral inguinal hernia without obstruction or gangrene Qualifiers: Recurrence: not specified as recurrent Qualified Code(s): K40.20 - Bilateral inguinal hernia, without obstruction or gangrene, not specified as recurrent Hypertension Qualifiers: Hypertension type: essential hypertension Qualified Code(s): I10 - Essential ( primary) hypertension Condition: Fair Critical Care Time: No Referrals: PASCALE GROVES MD [Primary Care Provider] -
[2018-12-04 11:09] LABS: BASOPHIL % 0.3 % (0.0-0.4); Basophil (Absolute #) 0.04 (0-0.4); Eosinophil % 3.5 % (0.00-5.0); Granulocytes % 77.4 % (36.0-66.0); Lymphocyte (Absolute #) 1.13 (1.0-4.6); Lymphocytes % 9.8 % (24.0-44.0); Mean Cell Volume 85.5 fl (78-100); Mean Corpuscular Hemoglobin 27.8 pg (26-32); Mean Corpuscular Hgb Concent. 32.5 g/dl (32-36); Mean Platelet Volume 10.5 fl (6-9.5); Monocyte (Absolute #) 1.03 (0.0-1.3); Platelet Count 211 K/mm3 (150-450); Red Blood Count 4.68 M/mm3 (4.1-5.6); Red Cell Distribution Width 14.4 % (11.5-14.0); White Blood Count 11.5 K/mm3 (4.0-10.5)
[2018-12-04 11:16] LABS: Lactic Acid 2.2 (0.4-2.0)
[2018-12-04] MEDS ORDERED: Sodium Chloride 0.9% 1000 ML 1,000 ML ONE (11:18)
[2018-12-04 11:25] LABS: ALBUMIN 4.2 g/dL (3.5-5.0); ANION GAP 15.2 MEQ/L (5-15); BILIRUBIN,TOTAL 0.4 mg/dL (0.2-1.3); Calcium 10.4 mg/dL (8.4-10.2); Creatinine 1 1.68 mg/dL (0.66-1.25); Potassium 4.6 mmol/L (3.5-5.1); Total Protein 7.5 g/dL (6.3-8.2)
[2018-12-04] MEDS ORDERED: Magnesium Sulfate 1 GM/2 ML VIAL IV ONE (12:06)
[2018-12-04] MEDS ORDERED: Magnesium 1 Gm / 100 Ml D5W*** 0 ML IV ONE (12:17)
[2018-12-04] MEDS ORDERED: Magnesium Sulfate 1 GM/2 ML VIAL ONE (12:19)
[2018-12-04] MEDS ORDERED: Sodium Chloride 0.9% 100 ML IVPB 100 ML IV ONE ×2 (12:24→12:25)
--- NOTE | 2018-12-04 13:33 | XRAY ---
Exam: CT of the abdomen and pelvis without IV contrast from 12/04/2018. CTDI: 34.49 mGy. Comparison: CT of the abdomen and pelvis with IV contrast from 05/18/2017. Indication: 73-year-old male with right lower abdominal pain/pelvic pain, right testicular soreness, right leg soreness, history of injury to testicles when patient was 12 years old. Technique: Non-IV contrast axial images were obtained through the abdomen and pelvis. Reconstructed coronal and sagittal images were created and reviewed. Findings: On axial images #8 and #9, there is a noncalcified lung nodule at the posterior lateral right lung base measuring about 6 mm in diameter. This may be about 1 mm larger than that noted on 05/18/2017. Certainly, the degree of change is not much. Minimal focal scarring/chronic atelectasis is seen within the right posterior lung sulcus. The remainder of the right lung bases are clear, except for 2 or 3 tiny granulomatous calcifications within the left infrahilar projection. I again note extensive fatty infiltration of the liver. Assessment of the solid organs is limited without the use of IV contrast. No gross liver lesion is seen. The patient has abundant intraperitoneal fat. The gallbladder is mildly distended and reveals no dense calcifications within it. The spleen is of normal size without mass. Both the pancreas and adrenal glands appear unremarkable. Mild bilateral perinephric stranding, right greater than left, is again seen. I see no renal calculi or hydronephrosis. There appears to be a stable 2.5 cm in diameter cyst at the posterior margin of the mid aspect of the right kidney measuring +5.2 Hounsfield units. Previously noted small oval-shaped mass at the posterior aspect of the lower pole of the left kidney does not have a low-attenuation density on the noncontrast study. This measures an average of +32.6 Hounsfield units suggesting that this may represent a solid left renal lesion. A neoplasm is not excluded. This lesion measures of about 3 cm in greatest diameter. For example, see axial image #45. The ureters appear of unremarkable diameter. However, I see a tiny 2 mm calcification near the left ureterovesical junction on axial images #75 and #76. This is also seen on coronal image #119. This calcification may be adjacent to the distal left ureter rather than within it. Correlate clinically. I do not definitely see this calcification on the prior CT study from 05/18/2017. The remainder of the urinary bladder appears unremarkable. Atherosclerotic calcification is seen within the abdominal aorta. No aneurysm or abnormal retroperitoneal lymphadenopathy is seen. Abundant intraperitoneal fat is again seen. There is no free intraperitoneal air. The anterior abdominal wall is protuberant. There appears to be a small supraumbilical fat-containing ventral hernia. For example, see sagittal image #111. This appears to the left of midline on axial image #55 and slightly to the right of midline on axial image #61. The larger fatty ventral hernia just to the left of midline measures 6.4 cm in width and 2.5 cm in AP depth on axial image #55. No bowel containing ventral hernia is seen. Scattered stool is seen within the colon. No bowel obstruction or definite bowel wall thickening is seen. I see no findings of acute appendicitis within the right lower quadrant. Some calcified phleboliths are seen within the lower pelvis bilaterally. The seminal vesicles and prostate gland appear unremarkable. No free fluid is seen. No enlarged pelvic lymph nodes are seen. Bilateral prominent fat-containing inguinal hernias are seen, larger on the right than left. This is unchanged from 05/18/2017. A few small nonspecific postinflammatory lymph nodes are seen within the femoral regions. A small amount of calcification is seen within each hemiscrotum, right greater than left. Significance is unclear (? old post traumatic). No gross testicular mass is seen. The skeleton reveals no acute fracture or focal bone destruction. I again see moderate to marked degenerative disc disease at L5-S1, minimal anterolisthesis of L5 over S1, and bilateral spondylolysis of L5. Small anterior lateral osteophytes are seen within the visualized thoracolumbar spine. Impression: 1. There is a 3 cm oval-shaped soft tissue mass at the posterior aspect of the lower pole of the left kidney. This does not have the attenuation value of a simple cyst. A malignancy is not excluded. Further evaluation with a post-IV contrast CT or MRI without and with IV contrast of the kidneys is recommended. 2. I do note a simple cyst at the posterior margin of the mid aspect of the right kidney and some bilateral perirenal stranding, right greater than left. These findings are unchanged. 3. There is a tiny 2 mm calcification at the posterior left lateral margin of the urinary bladder, as discussed above. I'm not sure whether this represents a tiny nonobstructing left UVJ stone or a tiny bladder calcification adjacent to the distal left ureter. Correlate clinically. This calcification does appear to be new from 05/18/2017. 4. Soft tissue lung nodule measuring almost 6 mm in diameter which is probably less than 1 mm larger than that seen on 05/18/2017. Continued follow-up is recommended. 5. Diffuse fatty infiltration of the liver, mild ventral periumbilical fat-containing hernia, and prominent bilateral fat-containing inguinal hernias, right greater than left, are again seen. 6. I see no findings of acute appendicitis. 7. Essentially unchanged skeletal findings, as discussed above.
--- NOTE | 2018-12-04 13:35 | XRAY ---
Exam: Right lower extremity duplex Doppler venous ultrasound exam from 12/04/2018. Comparison: Bilateral lower extremity duplex Doppler venous ultrasound exam from 03/29/2012. Indication: 73-year-old male with right lower leg pain, history of DVT in left lower extremity popliteal vein on 03/29/2012. Technique: Crockett scale images, color flow images, and Doppler tracings were obtained of the deep veins of the right lower extremity as well as portions of the great saphenous vein. Findings: Normal transducer compression and normal spontaneous and phasic Doppler waveforms with normal Doppler signal augmentation are seen throughout the deep veins of the right lower extremity including the right common femoral vein, proximal, mid, and distal superficial femoral vein, popliteal vein, and distal posterior tibial veins. I see normal color blood flow, Doppler signal, and Doppler signal augmentation within the profunda femoral vein. The greater saphenous vein within the upper right thigh reveals normal color flow and transducer compression. Impression: 1. No evidence of DVT is seen within the right lower extremity. No superficial venous thrombosis was seen as well.
[2018-12-04] MEDS ORDERED: TYLENOL 325 MG PO PRN (14:28)
[2018-12-04] MEDS ORDERED: Sodium Chloride 0.9% 1000 ML 1,000 ML IV SCH (14:28)
[2018-12-04] MEDS ORDERED: Colace 100 MG PO PRN (14:28)
[2018-12-04 15:23] LABS: Appearance SLIGHTLY CLOUDY (CLEAR); Bacteria FEW /HPF (NEGATIVE); Bilirubin NEGATIVE (NEGATIVE); Blood LARGE Ery/ul (0-5); Glucose NEGATIVE (NEGATIVE); Ketones NEGATIVE (NEGATIVE); Leukocyte Esterase MODERATE (NEGATIVE); Mucus SLIGHT /HPF (NEGATIVE); Nitrite NEGATIVE (NEGATIVE); Protein,Urine Dip 30 (Negative); RBC 26-50 /HPF (0-2); Specific Gravity 1.015 (1.005-1.025); Urobilinogen NEGATIVE mg/dL (0-1); WBC 51-100 /HPF (0-5)
[2018-12-04] MEDS: Sodium Chloride 0.9% 1000 ML 1,000 ML IV SCH ×2 (16:00→22:28)
[2018-12-04] MEDS ORDERED: Voltaren GEL TP PRN (16:36)
[2018-12-04] MEDS ORDERED: PROVENTIL COMMON CANISTER IH PRN (16:36)
[2018-12-04] MEDS: Glucophage 500 MG PO SCH (17:09)
[2018-12-04] MEDS: Coreg 6.25 MG PO SCH (22:12)
[2018-12-04] MEDS: Catapres 0.1 MG PO SCH (22:12)
[2018-12-05] MEDS: Sodium Chloride 0.9% 1000 ML 1,000 ML IV SCH ×2 (04:53→13:42)
[2018-12-05 06:42] LABS: ANION GAP 14.1 MEQ/L (5-15); Creatinine 1 1.33 mg/dL (0.66-1.25); Potassium 4.5 mmol/L (3.5-5.1)
[2018-12-05] MEDS ORDERED: Glucotrol 5 MG PO SCH (07:00)
[2018-12-05] MEDS: Glucophage 500 MG PO SCH ×2 (08:09→16:24)
--- NOTE | 2018-12-05 09:30 | PCM.HP ---
History of Present Illness - Chief Complaint Chief Complaint: Right calf pain, RLQ abdominal pain Date: 12/04/18 History of Present Illness: is a 73 year old male. Presents to ER with complaints of simultaneous pain in the right calf and RLQ of abdomen about 1530 12/03/18. Pt. notes he had been bowling in his league about 2 hours prior to the onset of pain, he did not take any fluids during that time. Pt. notes he drove to [place] the morning of 12/04 and pain got much worse. Pt. noted the pain to be stabbing in both areas, history of left leg DVT. Upon entering the ER he noted the abdominal pain resolved after passing a lot of gas. - Review of Systems Constitutional: No Fever, No Chills Eyes: No Symptoms Ears, Nose, & Throat: Other (Right upper dental pain), No Ear Discharge, No Hearing Changes, No Tinnitus, No Nose Pain, No Nose Congestion, No Nose Discharge, No Sinus Drainage, No Epistaxis Respiratory: No Cough, No Short Of Breath Cardiac: No Chest Pain, No Edema, No Syncope Abdominal/Gastrointestinal: Abdominal Pain, No Nausea, No Vomiting, No Diarrhea Genitourinary Symptoms: No Dysuria Musculoskeletal: Other (right calf pain), No Back Pain, No Neck Pain Skin: No Rash Neurological: No Dizziness, No Focal Weakness, No Sensory Changes Psychological: No Symptoms Medications & Allergies Home Medications: Home Medication List Carvedilol 6.25 mg [Coreg 6.25 MG] 6.25 mg PO BID 03/29/12 [History Confirmed 12/04/18] Fluoxetine HCl 20 mg [Prozac 20 MG] 20 mg PO DAILY 02/15/13 [History Confirmed 12/04/18] Clonidine HCl 0.1 mg [Catapres 0.1 MG] 0.2 mg PO BID 08/25/15 [History Confirmed 12/04/18] Ferrous Sulfate 325 mg [Feosol 325 mg] 1 tab PO DAILY 08/25/15 [History Confirmed 12/04/18] Hydrochlorothiazide 25 mg [hydroDIURIL 25 MG] 12.5 mg PO DAILY 08/25/15 [ History Confirmed 12/04/18] Metformin HCl 500 mg [Glucophage 500 MG] 1,000 mg PO BID 05/13/16 [ History Confirmed 12/04/18] Montelukast Sodium [Singulair] 10 mg PO DAILY 05/13/16 [History Confirmed ] Atorvastatin Calcium [Lipitor] 10 mg PO DAILY 10/22/17 [History Confirmed ] Glipizide 5 mg PO DAILY 10/22/17 [History Confirmed 12/04/18] Albuterol Common Canister [Proventil Common Canister] 2 puffs PO Q12H PRN PRN 12/04/18 [History Confirmed 12/04/18] Diclofenac Sodium Gel [Voltaren GEL] 200 gm TP Q12H PRN PRN 12/04/18 [ History Confirmed 12/04/18] Allergies/Adverse Reactions: Allergies Allergy/AdvReac Type Severity Reaction Status Date / Time silk Allergy Severe Swelling Verified 12/04/18 11:11 Sulfa (Sulfonamide Allergy Mild Difficulty Verified 12/04/18 11:11 Antibiotics) Breathing [Sulfa(Sulfonamide Antibiotics)] procaine HCl [From Novocain] AdvReac Mild Rapid Verified 12/04/18 11:11 Heart Beat steroids AdvReac Severe GI bleeding Uncoded 05/18/17 15:54 - Past Medical History Past Medical History: Yes Neurological History: No Pertinent History ENT History: Macular Degeneration Cardiac History: Deep Vein Thrombosis, Hypertension CARDIAC HISTORY: High Cholesterol Respiratory History: Asthma, Pneumonia, Other Endocrine Medical History: Diabetes Type II, Other Musculoskelatal History: No Pertinent History GI Medical History: GERD, GI Bleed, Hernia History: Other Pyscho-Social History: Anxiety, Depression Male Reproductive Disorders: Prostate Problems Comment: KIDNEY CYST - Past Surgical History Past Surgical History: Yes Neuro Surgical History: No Pertinent History Cardiac History: No Pertinent History Respiratory Surgery: No Pertinent History GI Surgical History: Hernia Repair Genitourinary Surgical Hx: No Pertinent History Musculskeletal Surgical Hx: No Pertinent History Male Surgical History: Vasectomy Other Surgical History: repair to penis d/t injury several years ago vasectomy times 2 - Social History Smoking Status: Never smoker Exposure to second hand smoke: No Alcohol: None Drug Use: none - Physical Exam Vital Signs: Vital Signs - 24 hr Temp Pulse Resp BP Pulse Ox 12/05/18 08:00 97.2 F 75 24 168/90 94 L 12/05/18 07:45 96 12/05/18 04:00 98.0 F 82 18 132/75 94 L 12/05/18 00:00 98.2 F 88 19 136/89 94 L 12/04/18 20:00 99.1 F 95 H 19 135/83 93 L 12/04/18 19:37 73 18 93 L 12/04/18 17:53 95 12/04/18 14:31 99 F 95 H 150/91 97 12/04/18 14:18 98.5 F 83 20 160/87 96 12/04/18 13:54 95 H 150/91 97 12/04/18 13:44 100 H 16 137/111 96 12/04/18 12:51 81 141/81 95 12/04/18 11:56 86 18 158/104 96 12/04/18 11:32 84 18 158/104 97 12/04/18 11:13 99 F 81 18 162/103 98 12/04/18 10:40 98.0 F 91 H 24 171/102 98 General Appearance: no apparent distress, alert Neurologic Exam: alert, oriented x 3, cooperative, normal mood/affect, nml cerebellar function, nml station & gait, sensation nml, No motor deficits Eye Exam: PERRL/EOMI, eyes nml inspection Ears, Nose, Throat Exam: normal ENT inspection, TMs normal, pharynx normal, moist mucous membranes Neck Exam: normal inspection, non-tender, supple, full range of motion Respiratory Exam: normal breath sounds, lungs clear, No respiratory distress Cardiovascular Exam: regular rate/rhythm, normal heart sounds, normal peripheral pulses Gastrointestinal/Abdomen Exam: soft, normal bowel sounds, No tenderness, No mass Extremity Exam: normal inspection, normal range of motion, pelvis stable, calf tenderness Skin Exam: normal color, warm, dry, No rash Lymphatic Exam: No adenopathy Results - Labs Lab/Micro Results: Accuchecks Date 12/04/18 Time 16:30 Accucheck Value: 114 Lab Results-Last 24 Hours 12/04/18 12/04/18 12/04/18 Range/Units 11:07 11:07 11:07 WBC 11.5 H (4.0-10.5) K/mm3 RBC 4.68 (4.1-5.6) M/mm3 Hgb 13.0 (12.5-18.0) gm/dl Hct 40.0 L (42-50) % MCV 85.5 (78-100) fl MCH 27.8 (26-32) pg MCHC 32.5 (32-36) g/dl RDW 14.4 H (11.5-14.0) % Plt Count 211 (150-450) K/mm3 MPV 10.5 H (6-9.5) fl Gran % 77.4 H (36.0-66.0) % Eos # (Auto) 0.40 (0-0.5) Absolute Lymphs (auto) 1.13 (1.0-4.6) Absolute Monos (auto) 1.03 (0.0-1.3) Lymphocytes % 9.8 L (24.0-44.0) % Monocytes % 9.0 (0.0-12.0) % Eosinophils % 3.5 (0.00-5.0) % Basophils % 0.3 (0.0-0.4) % Absolute Granulocytes 8.90 H (1.4-6.9) Basophils # 0.04 (0-0.4) Sodium 139 (137-145) mmol/L Potassium 4.6 (3.5-5.1) mmol/L Chloride 101 (98-107) mmol/L Carbon Dioxide 27 (22-30) mmol/L Anion Gap 15.2 H (5-15) MEQ/L BUN 20 (9-20) mg/dL Creatinine 1.68 H (0.66-1.25) mg/dL Estimated GFR 43.0 ML/MIN Glucose 111 H (74-106) mg/dL Lactic Acid (0.4-2.0) Calcium 10.4 H (8.4-10.2) mg/dL Magnesium 1.4 L (1.6-2.3) mg/dL Total Bilirubin 0.40 (0.2-1.3) mg/dL AST 27 (17-59) U/L ALT 28 (0-50) U/L Alkaline Phosphatase 67 (38-126) U/L Creatine Kinase (55-170) U/L Serum Total Protein 7.5 (6.3-8.2) g/dL Albumin 4.2 (3.5-5.0) g/dL Amylase 77 (30-110) U/L Lipase 78 (23-300) U/L Urine Color (YELLOW) Urine Appearance (CLEAR) Urine pH (5-6) Ur Specific [place] (1.005-1.025) Urine Protein (Negative) Urine Ketones (NEGATIVE) Urine Blood (0-5) Ralph/ul Urine Nitrite (NEGATIVE) Urine Bilirubin (NEGATIVE) Urine Urobilinogen (0-1) mg/dL Ur Leukocyte Esterase (NEGATIVE) Urine WBC (Auto) (0-5) /HPF Urine RBC (Auto) (0-2) /HPF U Hyaline Cast (Auto) (0-2) /LPF U Epithel Cells (Auto) (FEW) /HPF Urine Bacteria (Auto) (NEGATIVE) /HPF Urine Mucus (Auto) (NEGATIVE) /HPF Urine Culture Reflexed (NO) Urine Glucose (NEGATIVE) mg/dL 12/04/18 12/04/18 12/04/18 Range/Units 11:07 11:13 13:10 WBC (4.0-10.5) K/mm3 RBC (4.1-5.6) M/mm3 Hgb (12.5-18.0) gm/dl Hct (42-50) % MCV (78-100) fl MCH (26-32) pg MCHC (32-36) g/dl RDW (11.5-14.0) % Plt Count (150-450) K/mm3 MPV (6-9.5) fl Gran % (36.0-66.0) % Eos # (Auto) (0-0.5) Absolute Lymphs (auto) (1.0-4.6) Absolute Monos (auto) (0.0-1.3) Lymphocytes % (24.0-44.0) % Monocytes % (0.0-12.0) % Eosinophils % (0.00-5.0) % Basophils % (0.0-0.4) % Absolute Granulocytes (1.4-6.9) Basophils # (0-0.4) Sodium (137-145) mmol/L Potassium (3.5-5.1) mmol/L Chloride (98-107) mmol/L Carbon Dioxide (22-30) mmol/L Anion Gap (5-15) MEQ/L BUN (9-20) mg/dL Creatinine (0.66-1.25) mg/dL Estimated GFR ML/MIN Glucose (74-106) mg/dL Lactic Acid 2.2 H (0.4-2.0) Calcium (8.4-10.2) mg/dL Magnesium (1.6-2.3) mg/dL Total Bilirubin (0.2-1.3) mg/dL AST (17-59) U/L ALT (0-50) U/L Alkaline Phosphatase (38-126) U/L Creatine Kinase 120 (55-170) U/L Serum Total Protein (6.3-8.2) g/dL Albumin (3.5-5.0) g/dL Amylase (30-110) U/L Lipase (23-300) U/L Urine Color YELLOW (YELLOW) Urine Appearance SLIGHTLY CLOUDY (CLEAR) Urine pH 5.0 (5-6) Ur Specific [place] 1.015 (1.005-1.025) Urine Protein 30 (Negative) Urine Ketones NEGATIVE (NEGATIVE) Urine Blood LARGE (0-5) Ralph/ul Urine Nitrite NEGATIVE (NEGATIVE) Urine Bilirubin NEGATIVE (NEGATIVE) Urine Urobilinogen NEGATIVE (0-1) mg/dL Ur Leukocyte Esterase MODERATE (NEGATIVE) Urine WBC (Auto) 51-100 (0-5) /HPF Urine RBC (Auto) 26-50 (0-2) /HPF U Hyaline Cast (Auto) 3-5 (0-2) /LPF U Epithel Cells (Auto) NONE (FEW) /HPF Urine Bacteria (Auto) FEW (NEGATIVE) /HPF Urine Mucus (Auto) SLIGHT (NEGATIVE) /HPF Urine Culture Reflexed YES (NO) Urine Glucose NEGATIVE (NEGATIVE) mg/dL 12/04/18 12/05/18 12/05/18 Range/Units 13:15 05:00 05:00 WBC (4.0-10.5) K/mm3 RBC (4.1-5.6) M/mm3 Hgb (12.5-18.0) gm/dl Hct (42-50) % MCV (78-100) fl MCH (26-32) pg MCHC (32-36) g/dl RDW (11.5-14.0) % Plt Count (150-450) K/mm3 MPV (6-9.5) fl Gran % (36.0-66.0) % Eos # (Auto) (0-0.5) Absolute Lymphs (auto) (1.0-4.6) Absolute Monos (auto) (0.0-1.3) Lymphocytes % (24.0-44.0) % Monocytes % (0.0-12.0) % Eosinophils % (0.00-5.0) % Basophils % (0.0-0.4) % Absolute Granulocytes (1.4-6.9) Basophils # (0-0.4) Sodium 138 (137-145) mmol/L Potassium 4.5 (3.5-5.1) mmol/L Chloride 103 (98-107) mmol/L Carbon Dioxide 25 (22-30) mmol/L Anion Gap 14.1 (5-15) MEQ/L BUN 16 (9-20) mg/dL Creatinine 1.33 H (0.66-1.25) mg/dL Estimated GFR 56.3 ML/MIN Glucose 151 H (74-106) mg/dL Lactic Acid 1.5 (0.4-2.0) Calcium 9.0 (8.4-10.2) mg/dL Magnesium 1.5 L (1.6-2.3) mg/dL Total Bilirubin (0.2-1.3) mg/dL AST (17-59) U/L ALT (0-50) U/L Alkaline Phosphatase (38-126) U/L Creatine Kinase (55-170) U/L Serum Total Protein (6.3-8.2) g/dL Albumin (3.5-5.0) g/dL Amylase (30-110) U/L Lipase (23-300) U/L Urine Color (YELLOW) Urine Appearance (CLEAR) Urine pH (5-6) Ur Specific [place] (1.005-1.025) Urine Protein (Negative) Urine Ketones (NEGATIVE) Urine Blood (0-5) Ralph/ul Urine Nitrite (NEGATIVE) Urine Bilirubin (NEGATIVE) Urine Urobilinogen (0-1) mg/dL Ur Leukocyte Esterase (NEGATIVE) Urine WBC (Auto) (0-5) /HPF Urine RBC (Auto) (0-2) /HPF U Hyaline Cast (Auto) (0-2) /LPF U Epithel Cells (Auto) (FEW) /HPF Urine Bacteria (Auto) (NEGATIVE) /HPF Urine Mucus (Auto) (NEGATIVE) /HPF Urine Culture Reflexed (NO) Urine Glucose (NEGATIVE) mg/dL Microbiology 12/04/18 13:10 Urine Culture - Preliminary Clean Catch Midstream NO GROWTH TO DATE Accuchecks Date 12/04/18 Time 16:30 Accucheck Value: 114 - Radiology Impressions Radiology Exams & Impressions: Radiology Procedures Category Date Time Status ABDOMEN AND PELVIS W/0 CONTRAS [CT] Stat Exams 12/04/18 11:37 Completed MRI ABD W & WO CONTRAST [MRI] Routine Exams 12/05/18 09:00 Ordered VENOUS UNILAT/LIMITED EXTREMIT [US] Stat Exams 12/04/18 10:49 Completed - Other Procedures and Tests Respiratory Therapy 12/04/18 17:29 Respiratory Therapy Assessment DAILY Assessment/Plan (1) Acute kidney failure, unspecified Current Visit: Yes Status: Acute Qualifiers: Acute renal failure type: unspecified Qualified Code(s): N17.9 - Acute kidney failure, unspecified (2) Volume depletion, unspecified Current Visit: Yes Status: Acute Code(s): E86.9 - VOLUME DEPLETION, UNSPECIFIED (3) Hypomagnesemia Current Visit: Yes Status: Acute Code(s): E83.42 - HYPOMAGNESEMIA (4) Acquired renal cyst of right kidney Current Visit: Yes Status: Chronic Code(s): N28.1 - CYST OF KIDNEY, ACQUIRED (5) Renal mass, left Current Visit: Yes Status: Acute Code(s): N28.89 - OTHER SPECIFIED DISORDERS OF KIDNEY AND URETER
[2018-12-05] MEDS ORDERED: FEOSOL 325 MG PO SCH (10:00)
[2018-12-05] MEDS ORDERED: NON-FORMULARY ITEM (Atorvastatin Calcium 10 MG) PO SCH (10:00)
[2018-12-05] MEDS ORDERED: hydroDIURIL 25 MG PO SCH (10:00)
[2018-12-05] MEDS ORDERED: Singulair 10 MG PO SCH (10:00)
[2018-12-05] MEDS ORDERED: Prozac 20 MG PO SCH (10:00)
[2018-12-05] MEDS ORDERED: Zocor 10MG PO SCH (10:00)
--- NOTE | 2018-12-05 10:08 | PCM.NOTE ---
Date and Time: 12/05/18 1006 Subjective Assessment: patient denies any pain in the abdomen or flank today, overall feels better. he is tolerating po intake Objective Exam General Appearance: no apparent distress, alert, obese Neurologic Exam: alert, oriented x 3, cooperative, normal mood/affect, nml cerebellar function, sensation nml, No motor deficits Respiratory Exam: normal breath sounds, lungs clear, No respiratory distress Cardiovascular Exam: regular rate/rhythm, normal heart sounds Gastrointestinal/Abdomen Exam: soft, No tenderness, No mass Extremity Exam: normal inspection, normal range of motion OBJECTIVE DATA Vital Signs: Vital Signs - 24 hr Temp Pulse Resp BP Pulse Ox 12/05/18 08:00 97.2 F 75 24 168/90 94 L 12/05/18 07:45 96 12/05/18 04:00 98.0 F 82 18 132/75 94 L 12/05/18 00:00 98.2 F 88 19 136/89 94 L 12/04/18 20:00 99.1 F 95 H 19 135/83 93 L 12/04/18 19:37 73 18 93 L 12/04/18 17:53 95 12/04/18 14:31 99 F 95 H 150/91 97 12/04/18 14:18 98.5 F 83 20 160/87 96 12/04/18 13:54 95 H 150/91 97 12/04/18 13:44 100 H 16 137/111 96 12/04/18 12:51 81 141/81 95 12/04/18 11:56 86 18 158/104 96 12/04/18 11:32 84 18 158/104 97 12/04/18 11:13 99 F 81 18 162/103 98 12/04/18 10:40 98.0 F 91 H 24 171/102 98 Pain Assessment - Last Documented Pain Intensity 8 Pain Scale Used [facility] Intake and Output: Intake & Output 12/02/18 12/03/18 12/04/18 12/05/18 11:59 11:59 11:59 11:59 Intake Total 1176 Output Total 500 Balance 676 Weight 111.13 kg 111.13 kg Lab Results: Accuchecks Date 12/04/18 Time 16:30 Accucheck Value: 114 Lab Results-Last 24 Hours 09/10/19 09/10/19 09/10/19 Range/Units 11:07 11:07 11:07 WBC 11.5 H (4.0-10.5) K/mm3 RBC 4.68 (4.1-5.6) M/mm3 Hgb 13.0 (12.5-18.0) gm/dl Hct 40.0 L (42-50) % MCV 85.5 (78-100) fl MCH 27.8 (26-32) pg MCHC 32.5 (32-36) g/dl RDW 14.4 H (11.5-14.0) % Plt Count 211 (150-450) K/mm3 MPV 10.5 H (6-9.5) fl Gran % 77.4 H (36.0-66.0) % Eos # (Auto) 0.40 (0-0.5) Absolute Lymphs (auto) 1.13 (1.0-4.6) Absolute Monos (auto) 1.03 (0.0-1.3) Lymphocytes % 9.8 L (24.0-44.0) % Monocytes % 9.0 (0.0-12.0) % Eosinophils % 3.5 (0.00-5.0) % Basophils % 0.3 (0.0-0.4) % Absolute Granulocytes 8.90 H (1.4-6.9) Basophils # 0.04 (0-0.4) Sodium 139 (137-145) mmol/L Potassium 4.6 (3.5-5.1) mmol/L Chloride 101 (98-107) mmol/L Carbon Dioxide 27 (22-30) mmol/L Anion Gap 15.2 H (5-15) MEQ/L BUN 20 (9-20) mg/dL Creatinine 1.68 H (0.66-1.25) mg/dL Estimated GFR 43.0 ML/MIN Glucose 111 H (74-106) mg/dL Lactic Acid (0.4-2.0) Calcium 10.4 H (8.4-10.2) mg/dL Magnesium 1.4 L (1.6-2.3) mg/dL Total Bilirubin 0.40 (0.2-1.3) mg/dL AST 27 (17-59) U/L ALT 28 (0-50) U/L Alkaline Phosphatase 67 (38-126) U/L Creatine Kinase (55-170) U/L Serum Total Protein 7.5 (6.3-8.2) g/dL Albumin 4.2 (3.5-5.0) g/dL Amylase 77 (30-110) U/L Lipase 78 (23-300) U/L Urine Color (YELLOW) Urine Appearance (CLEAR) Urine pH (5-6) Ur Specific [place] (1.005-1.025) Urine Protein (Negative) Urine Ketones (NEGATIVE) Urine Blood (0-5) Ralph/ul Urine Nitrite (NEGATIVE) Urine Bilirubin (NEGATIVE) Urine Urobilinogen (0-1) mg/dL Ur Leukocyte Esterase (NEGATIVE) Urine WBC (Auto) (0-5) /HPF Urine RBC (Auto) (0-2) /HPF U Hyaline Cast (Auto) (0-2) /LPF U Epithel Cells (Auto) (FEW) /HPF Urine Bacteria (Auto) (NEGATIVE) /HPF Urine Mucus (Auto) (NEGATIVE) /HPF Urine Culture Reflexed (NO) Urine Glucose (NEGATIVE) mg/dL 12/04/18 12/04/18 12/04/18 Range/Units 11:07 11:13 13:10 WBC (4.0-10.5) K/mm3 RBC (4.1-5.6) M/mm3 Hgb (12.5-18.0) gm/dl Hct (42-50) % MCV (78-100) fl MCH (26-32) pg MCHC (32-36) g/dl RDW (11.5-14.0) % Plt Count (150-450) K/mm3 MPV (6-9.5) fl Gran % (36.0-66.0) % Eos # (Auto) (0-0.5) Absolute Lymphs (auto) (1.0-4.6) Absolute Monos (auto) (0.0-1.3) Lymphocytes % (24.0-44.0) % Monocytes % (0.0-12.0) % Eosinophils % (0.00-5.0) % Basophils % (0.0-0.4) % Absolute Granulocytes (1.4-6.9) Basophils # (0-0.4) Sodium (137-145) mmol/L Potassium (3.5-5.1) mmol/L Chloride (98-107) mmol/L Carbon Dioxide (22-30) mmol/L Anion Gap (5-15) MEQ/L BUN (9-20) mg/dL Creatinine (0.66-1.25) mg/dL Estimated GFR ML/MIN Glucose (74-106) mg/dL Lactic Acid 2.2 H (0.4-2.0) Calcium (8.4-10.2) mg/dL Magnesium (1.6-2.3) mg/dL Total Bilirubin (0.2-1.3) mg/dL AST (17-59) U/L ALT (0-50) U/L Alkaline Phosphatase (38-126) U/L Creatine Kinase 120 (55-170) U/L Serum Total Protein (6.3-8.2) g/dL Albumin (3.5-5.0) g/dL Amylase (30-110) U/L Lipase (23-300) U/L Urine Color YELLOW (YELLOW) Urine Appearance SLIGHTLY CLOUDY (CLEAR) Urine pH 5.0 (5-6) Ur Specific [place] 1.015 (1.005-1.025) Urine Protein 30 (Negative) Urine Ketones NEGATIVE (NEGATIVE) Urine Blood LARGE (0-5) Ralph/ul Urine Nitrite NEGATIVE (NEGATIVE) Urine Bilirubin NEGATIVE (NEGATIVE) Urine Urobilinogen NEGATIVE (0-1) mg/dL Ur Leukocyte Esterase MODERATE (NEGATIVE) Urine WBC (Auto) 51-100 (0-5) /HPF Urine RBC (Auto) 26-50 (0-2) /HPF U Hyaline Cast (Auto) 3-5 (0-2) /LPF U Epithel Cells (Auto) NONE (FEW) /HPF Urine Bacteria (Auto) FEW (NEGATIVE) /HPF Urine Mucus (Auto) SLIGHT (NEGATIVE) /HPF Urine Culture Reflexed YES (NO) Urine Glucose NEGATIVE (NEGATIVE) mg/dL 12/04/18 12/05/18 12/05/18 Range/Units 13:15 05:00 05:00 WBC (4.0-10.5) K/mm3 RBC (4.1-5.6) M/mm3 Hgb (12.5-18.0) gm/dl Hct (42-50) % MCV (78-100) fl MCH (26-32) pg MCHC (32-36) g/dl RDW (11.5-14.0) % Plt Count (150-450) K/mm3 MPV (6-9.5) fl Gran % (36.0-66.0) % Eos # (Auto) (0-0.5) Absolute Lymphs (auto) (1.0-4.6) Absolute Monos (auto) (0.0-1.3) Lymphocytes % (24.0-44.0) % Monocytes % (0.0-12.0) % Eosinophils % (0.00-5.0) % Basophils % (0.0-0.4) % Absolute Granulocytes (1.4-6.9) Basophils # (0-0.4) Sodium 138 (137-145) mmol/L Potassium 4.5 (3.5-5.1) mmol/L Chloride 103 (98-107) mmol/L Carbon Dioxide 25 (22-30) mmol/L Anion Gap 14.1 (5-15) MEQ/L BUN 16 (9-20) mg/dL Creatinine 1.33 H (0.66-1.25) mg/dL Estimated GFR 56.3 ML/MIN Glucose 151 H (74-106) mg/dL Lactic Acid 1.5 (0.4-2.0) Calcium 9.0 (8.4-10.2) mg/dL Magnesium 1.5 L (1.6-2.3) mg/dL Total Bilirubin (0.2-1.3) mg/dL AST (17-59) U/L ALT (0-50) U/L Alkaline Phosphatase (38-126) U/L Creatine Kinase (55-170) U/L Serum Total Protein (6.3-8.2) g/dL Albumin (3.5-5.0) g/dL Amylase (30-110) U/L Lipase (23-300) U/L Urine Color (YELLOW) Urine Appearance (CLEAR) Urine pH (5-6) Ur Specific [place] (1.005-1.025) Urine Protein (Negative) Urine Ketones (NEGATIVE) Urine Blood (0-5) Ralph/ul Urine Nitrite (NEGATIVE) Urine Bilirubin (NEGATIVE) Urine Urobilinogen (0-1) mg/dL Ur Leukocyte Esterase (NEGATIVE) Urine WBC (Auto) (0-5) /HPF Urine RBC (Auto) (0-2) /HPF U Hyaline Cast (Auto) (0-2) /LPF U Epithel Cells (Auto) (FEW) /HPF Urine Bacteria (Auto) (NEGATIVE) /HPF Urine Mucus (Auto) (NEGATIVE) /HPF Urine Culture Reflexed (NO) Urine Glucose (NEGATIVE) mg/dL Radiology Exams: Radiology Procedures Category Date Time Status ABDOMEN AND PELVIS W/0 CONTRAS [CT] Stat Exams 12/04/18 11:37 Completed MRI ABD W & WO CONTRAST [MRI] Routine Exams 12/05/18 09:00 Taken VENOUS UNILAT/LIMITED EXTREMIT [US] Stat Exams 12/04/18 10:49 Completed Assessment/Plan (1) Renal mass, left Current Visit: Yes Status: Acute Assessment & Plan: consult nephrology, will likely need biopsy performed Code(s): N28.89 - OTHER SPECIFIED DISORDERS OF KIDNEY AND URETER (2) Kidney stone Current Visit: Yes Status: Acute Assessment & Plan: symptomatology/history fits with passing small stone and there was a calcification that was small in the bladder on ct, no hydro and pain is resolved , hematuria noted (3) MARY (acute kidney injury) Current Visit: Yes Status: Acute Assessment & Plan: bun/cr improved with hydration Code(s): N17.9 - ACUTE KIDNEY FAILURE, UNSPECIFIED (4) Bilateral inguinal hernia without obstruction or gangrene Current Visit: Yes Status: Acute Qualifiers: Recurrence: not specified as recurrent Qualified Code(s): K40.20 - Bilateral inguinal hernia, without obstruction or gangrene, not specified as recurrent Code(s): K40.20 - BI INGUINAL HERNIA, W/O OBST OR GANGRENE, NOT SPCF RECUR (5) Cyst of right kidney Current Visit: Yes Status: Acute Code(s): N28.1 - CYST OF KIDNEY, ACQUIRED
[2018-12-05] MEDS: Catapres 0.1 MG PO SCH (10:32)
[2018-12-05] MEDS: Coreg 6.25 MG PO SCH (10:33)
--- NOTE | 2018-12-05 12:42 | XRAY ---
Exam: MRI of the abdomen without and with 15 ML's of IV Magnevist from 12/05/2018. Comparison: CT of the abdomen and pelvis without IV contrast from 12/04/[address] of the abdomen and pelvis with IV contrast from 05/18/2017. Indication: Indeterminant oval-shaped mass within posterior aspect of lower pole of the left kidney. Technique: Multiplanar, multisequence MRI imaging of the abdomen was obtained without and with 15 ML's of IV Magnevist with attention to the left kidney. Findings: Within the lower pole of the left kidney, there is a 2.6 cm in diameter heterogeneous T2 hypointense lesion (see image #7 of series 4) which is nonenhancing (see image #8 and #9 of series 13 and image #9 of series 1). On the T1 sequences, the lesion is isointense (see image #7 of series 8). At the posterior aspect of the midpole of the right kidney, there is a 2.7 cm in diameter simple renal cyst. No other kidney abnormalities are seen. The adrenal glands appear unremarkable. The visualized liver reveals no mass. The spleen is of unremarkable size and reveals no mass. The pancreas appears unremarkable. No pancreatic duct distention is seen. The stomach and bowel appear unremarkable. There is no abnormal intraperitoneal fluid collection. There is no evidence of abdominal aortic aneurysm. No aggressive bone lesion is seen. There is slight deviation of the mid aspect of the lumbar spine toward the left. Impression: 1. The findings at the posterior aspect of the lower pole of the right kidney are most consistent with a 2.6 cm in diameter hemorrhagic renal cyst. Consider a follow-up CT or MRI in 6 months for monitoring. 2. 2.7 cm in diameter simple renal cyst at the posterior aspect of middle third of the right kidney.
--- NOTE | 2018-12-05 16:55 | PCM.DS ---
Discharge Summary Date of Admission: 12/04/18 14:08 Admitting Physician: ARABELLA CHILEL Consults: Consults on Case 12/05/18 10:08 Consult Nephrology ROUTINE Primary Care Provider: PASCALE GROVES JUDI Allergies Allergies silk Allergy (Severe, Verified 12/04/18 11:11) Swelling 1978 stiches caused swelling Sulfa (Sulfonamide Antibiotics) [Sulfa(Sulfonamide Antibiotics)] Allergy (Mild, Verified 12/04/18 11:11) Difficulty Breathing procaine HCl [From Novocain] Adverse Reaction (Mild, Verified 12/04/18 11:11) Rapid Heart Beat steroids Adverse Reaction (Severe, Uncoded 05/18/17 15:54) GI bleeding Hospital Summary - Hospital Course Hospital Course: patient presented with right lower abdomen, lower back pain. burning sensation with hematuria and small calcification in bladder on ct. pain resolved after admission, area on right kidney of concern shows hemorrhagic cyst. - Vitals & Intake/Output Vital Signs: Vital Signs Temperature 97.8 F 12/05/18 12:00 Pulse Rate 90 12/05/18 12:00 Respiratory Rate 20 12/05/18 12:00 Blood Pressure 180/86 12/05/18 12:00 O2 Sat by Pulse Oximetry 94 L 12/05/18 12:00 Intake & Output: Intake & Output 12/03/18 12/04/18 12/05/18 12/06/18 11:59 11:59 11:59 11:59 Intake Total 1656 240 Output Total 500 Balance 1156 240 Weight 111.13 kg 111.13 kg - Lab Result Diagrams: 12/04/18 11:07 12/05/18 05:00 Lab Results-Last 24 Hrs: Lab Results-Last 24 Hours 12/05/18 12/05/18 Range/Units 05:00 05:00 Sodium 138 (137-145) mmol/L Potassium 4.5 (3.5-5.1) mmol/L Chloride 103 (98-107) mmol/L Carbon Dioxide 25 (22-30) mmol/L Anion Gap 14.1 (5-15) MEQ/L BUN 16 (9-20) mg/dL Creatinine 1.33 H (0.66-1.25) mg/dL Estimated GFR 56.3 ML/MIN Glucose 151 H (74-106) mg/dL Calcium 9.0 (8.4-10.2) mg/dL Magnesium 1.5 L (1.6-2.3) mg/dL Micro Results-Entire Visit: Microbiology 12/04/18 13:10 Urine Culture - Preliminary Clean Catch Midstream NO GROWTH TO DATE - Radiology Exams Ordered Rad Exams-Entire Visit: Radiology Procedures Category Date Time Status ABDOMEN AND PELVIS W/0 CONTRAS [CT] Stat Exams 12/04/18 11:37 Completed MRI ABD W & WO CONTRAST [MRI] Routine Exams 12/05/18 09:00 Completed VENOUS UNILAT/LIMITED EXTREMIT [US] Stat Exams 12/04/18 10:49 Completed - Procedures and Test Procedures and Tests throughout Hospitalization: Therapy Orders & Screens 12/04/18 17:29 Respiratory Therapy Assessment DAILY Comment: Diagnosis: MARY, Hypomagesemia, RLQ Abdominal Pain Discharge Exam General Appearance: no apparent distress, obese Neurologic Exam: alert, oriented x 3 Respiratory Exam: normal breath sounds, lungs clear, No respiratory distress Cardiovascular Exam: regular rate/rhythm, normal heart sounds Gastrointestinal/Abdomen Exam: soft, No tenderness, No mass Final Diagnosis/Problem List - Final Discharge Diagnosis/Problem (1) Renal mass, left Current Visit: Yes Status: Acute Assessment & Plan: initial read on ct shows left, now hemorrhagic cyst on right on MRI. recommend 6 month f/u Code(s): N28.89 - OTHER SPECIFIED DISORDERS OF KIDNEY AND URETER (2) Kidney stone Current Visit: Yes Status: Acute (3) MARY (acute kidney injury) Current Visit: Yes Status: Acute Code(s): N17.9 - ACUTE KIDNEY FAILURE, UNSPECIFIED (4) Bilateral inguinal hernia without obstruction or gangrene Current Visit: Yes Status: Acute Code(s): K40.20 - BI INGUINAL HERNIA, W/O OBST OR GANGRENE, NOT SPCF RECUR (5) Cyst of right kidney Current Visit: Yes Status: Acute Code(s): N28.1 - CYST OF KIDNEY, ACQUIRED - Discharge Disposition: Home, Self-Care Condition: Fair Prescriptions: Continue Carvedilol 6.25 mg [Coreg 6.25 MG] 6.25 mg PO BID Fluoxetine HCl 20 mg [Prozac 20 MG] 20 mg PO DAILY Ferrous Sulfate 325 mg [Feosol 325 mg] 1 tab PO DAILY Clonidine HCl 0.1 mg [Catapres 0.1 MG] 0.2 mg PO BID Hydrochlorothiazide 25 mg [hydroDIURIL 25 MG] 12.5 mg PO DAILY Metformin HCl 500 mg [Glucophage 500 MG] 1,000 mg PO BID Montelukast Sodium [Singulair] 10 mg PO DAILY Glipizide 5 mg PO DAILY Atorvastatin Calcium [Lipitor] 10 mg PO DAILY Albuterol Common Canister [Proventil Common Canister] 2 puffs PO Q12H PRN PRN PRN Reason: Shortness Of Breath Diclofenac Sodium Gel [Voltaren GEL] 200 gm TP Q12H PRN PRN PRN Reason: Pain And/Or Fever Follow up with: PASCALE GROVES MD [Primary Care Provider] - 1 Week JONAS YOUNGBLOOD [CONSULTING PHYSICIAN] - 1 Week
[2018-12-05 17:57] VITALS: BP 181/82; PULSE 87; O2SAT 92
== END 2018-12-05 18:15 | disposition home or self-care (01) ==
LOC: ED 10:31 → MED SURG 14:08
PROVIDERS: ADMIT Family Medicine; ATTEND Family Medicine
DX: N28.89 Other specified disorders of kidney and ureter (principal); N17.9 Acute kidney failure, unspecified; R31.9 Hematuria, unspecified; N20.0 Calculus of kidney; K40.20 Bilateral inguinal hernia, without obstruction or gangrene, not specified as recurrent; N28.1 Cyst of kidney, acquired; E11.9 Type 2 diabetes mellitus without complications; E83.42 Hypomagnesemia; M79.661 Pain in right lower leg; Z86.718 Personal history of other venous thrombosis and embolism; I10 Essential (primary) hypertension; E78.00 Pure hypercholesterolemia, unspecified; E86.9 Volume depletion, unspecified; Z79.899 Other long term (current) drug therapy
CPT/HCPCS: 36415; 74176; 74183; 80048; 80053; 81001; 82150; 82550; 82962; 83605; 83690; 83735; 85025; 87086; 93268; 93971; 94760; 96360; 96365; 99285; G0378; J3475; A9270-GY

== ENCOUNTER 2018-12-19 08:48 | Emergency (ER) | payer MEDICARE ==
--- NOTE | 2018-12-19 09:09 | ERPHSYRPT ---
- History of Present Illness Time Seen by Provider: 12/19/18 09:09 Historian: patient Exam Limitations: no limitations Patient Subjective Stated Complaint: PT states "I passed a couple of kidney stones last week, I have 4 hernias in my abdomen, I have had a gi bleed in the past, but last night I started to have a burning pain in my upper center abdomen." Triage Nursing Assessment: Pt presented alert and oriented X 3, skin pwd Pt ambulates with an upright steady gait, able to speak in clear full sentencs. PT in no apparent respiratory distress. Physician History: patient came to the ER for epigastric pain started on 12/17/18 evening. Patient thinks that it is because of the steroid he received last week for a bee sting. Patient states that every time he gets steroid he gets this type of pain. The patient also says that he has hiatal hernia and also passed the 2 kidney stones last week. Patient had a CT scan of the head done last week which was normal. Had blood work done the day before yesterday. The hemoglobin was normal. Patient denies any chest pain or shortness of breath. Patient despite himself and he drove himself to the ER Timing/Duration: day(s) (2), intermittent Quality: burning Abdominal Pain Onset Location: epigastric Pain Radiation: no radiation Severity of Pain-Max: moderate Severity of Pain-Current: moderate Modifying Factors: Improves With: other (patient thinks it is because of steroids) Previous symptoms: same symptoms as today Allergies/Adverse Reactions: silk Allergy (Severe, Verified 12/04/18 11:11) Swelling 1978 stiches caused swelling Sulfa (Sulfonamide Antibiotics) [Sulfa(Sulfonamide Antibiotics)] Allergy (Mild, Verified 12/04/18 11:11) Difficulty Breathing procaine HCl [From Novocain] Adverse Reaction (Mild, Verified 12/04/18 11:11) Rapid Heart Beat steroids Adverse Reaction (Severe, Uncoded 05/18/17 15:54) GI bleeding Home Medications: Carvedilol 6.25 mg [Coreg 6.25 MG] 6.25 mg PO BID 03/29/12 [History] Fluoxetine HCl 20 mg [Prozac 20 MG] 20 mg PO DAILY 02/15/13 [History] Clonidine HCl 0.1 mg [Catapres 0.1 MG] 0.2 mg PO BID 08/25/15 [History] Ferrous Sulfate 325 mg [Feosol 325 mg] 1 tab PO DAILY 08/25/15 [History] Hydrochlorothiazide 25 mg [hydroDIURIL 25 MG] 12.5 mg PO DAILY 08/25/15 [ History] Metformin HCl 500 mg [Glucophage 500 MG] 1,000 mg PO BID 05/13/16 [History ] Montelukast Sodium [Singulair] 10 mg PO DAILY 05/13/16 [History] Atorvastatin Calcium [Lipitor] 10 mg PO DAILY 10/22/17 [History] Glipizide 5 mg PO DAILY 10/22/17 [History] Albuterol Common Canister [Proventil Common Canister] 2 puffs PO Q12H PRN PRN 12/04/18 [History] Diclofenac Sodium Gel [Voltaren GEL] 200 gm TP Q12H PRN PRN 12/04/18 [ History] Hx Tetanus, Diphtheria Vaccination/Date Given: Yes Hx Influenza Vaccination/Date Given: Yes Hx Pneumococcal Vaccination/Date Given: Yes Immunizations Up to Date: Yes - Review of Systems Constitutional: No Fever, No Chills Eyes: No Symptoms Ears, Nose, & Throat: No Symptoms Respiratory: No Cough, No Dyspnea Cardiac: No Chest Pain, No Edema, No Syncope Abdominal/Gastrointestinal: Abdominal Pain, Nausea, Constipation, No Vomiting, No Diarrhea Genitourinary Symptoms: No Dysuria Musculoskeletal: No Back Pain, No Neck Pain Skin: No Rash Neurological: No Dizziness, No Focal Weakness, No Sensory Changes Psychological: No Symptoms Endocrine: No Symptoms All Other Systems: Reviewed and Negative - Past Medical History Pertinent Past Medical History: Yes Neurological History: No Pertinent History ENT History: Macular Degeneration Cardiac History: Deep Vein Thrombosis, Hypertension Respiratory History: Asthma, Pneumonia, Other Endocrine Medical History: Diabetes Type II, Other Musculoskeletal History: No Pertinent History GI Medical History: GERD, GI Bleed, Hernia History: Other Psycho-Social History: Anxiety, Depression Male Reproductive Disorders: Prostate Problems Other Medical History: KIDNEY CYST - Past Surgical History Past Surgical History: Yes Neuro Surgical History: No Pertinent History Cardiac: No Pertinent History Respiratory: No Pertinent History Gastrointestinal: Hernia Repair Genitourinary: No Pertinent History Musculoskeletal: No Pertinent History Male Surgical History: Vasectomy Other Surgical History: repair to penis d/t injury several years ago vasectomy times 2 - Social History Smoking Status: Never smoker Exposure to second hand smoke: No Drug Use: none Patient Lives Alone: Yes - Nursing Vital Signs Nursing Vital Signs: Initial Vital Signs Temperature 97.8 F 12/19/18 08:55 Pulse Rate 87 12/19/18 08:55 Respiratory Rate 18 12/19/18 08:55 Blood Pressure 129/98 12/19/18 08:55 O2 Sat by Pulse Oximetry 98 12/19/18 08:55 Pain Scale Pain Intensity 4 - Physical Exam General Appearance: no apparent distress, alert Eye Exam: PERRL/EOMI, eyes nml inspection Ears, Nose, Throat Exam: normal ENT inspection, pharynx normal, moist mucous membranes Neck Exam: normal inspection, non-tender, supple, full range of motion Respiratory Exam: normal breath sounds, lungs clear, stridor, No respiratory distress Cardiovascular Exam: regular rate/rhythm, normal heart sounds Gastrointestinal/Abdomen Exam: soft, normal bowel sounds, other (No signs of intestinal obstruction or peritoneal irritation), No tenderness, No distention, No mass, No guarding, No ecchymosis Back Exam: normal inspection, normal range of motion, No CVA tenderness, No vertebral tenderness Extremity Exam: normal inspection, normal range of motion, pelvis stable Neurologic Exam: alert, oriented x 3, cooperative, normal mood/affect, nml cerebellar function, sensation nml, No motor deficits Skin Exam: normal color, warm, dry SpO2: 98 - Course Nursing assessment & vital signs reviewed: Yes EKG Interpreted by Me: Sinus Rhythm, Sinus Tach, NORMAL AXIS, NORMAL INTERVALS, NORMAL QRS, Q-wave, Other (no significant change since May 19, 2017) - CT Exams Abdomen/Pelvis CT Interpretation: Other (Impression- Nothing acute. See Radiolopgist's report) Ordered Tests: Active Orders 24 hr Category Date Time Status EKG-ER Only STAT Care 12/19/18 09:17 Active IV Insertion STAT Care 12/19/18 09:17 Active ABDOMEN AND PELVIS W CONTRAST [CT] Stat Exams 12/19/18 09:17 Completed CBC W DIFF Stat Lab 12/19/18 09:17 Completed CMP Stat Lab 12/19/18 09:17 Completed LIPASE Stat Lab 12/19/18 09:17 Completed TROPONIN Stat Lab 12/19/18 09:17 Completed UA W/RFX UR CULTURE Stat Lab 12/19/18 10:17 Completed Medication Summary Generic Name Dose Route Start Last Admin Trade Name Fiordaliza PRN Reason Stop Dose Admin Sodium Chloride 1,000 mls @ 100 mls/hr 12/19/18 09:30 12/19/18 09:24 Sodium Chloride 0.9% 1000 Ml IV 01/18/19 09:29 100 mls/hr .Q10H GARRY Administration Discontinued Medications Generic Name Dose Route Start Last Admin Trade Name Wilfredoq PRN Reason Stop Dose Admin Ondansetron HCl 4 mg 12/19/18 09:17 12/19/18 09:24 Zofran 4 Mg/2 Ml Vial IV 12/19/18 09:18 4 mg STAT ONE Administration Ondansetron HCl Confirm 12/19/18 09:23 Zofran 4 Mg/2 Ml Vial Administered 12/19/18 09:24 Dose 4 mg .ROUTE .STK-MED ONE Lab/Rad Data: Laboratory Result Diagrams 12/19/18 09:17 12/19/18 09:17 Laboratory Results 12/19/18 12/19/18 12/19/18 Range/Units 10:17 09:17 09:17 WBC 9.7 (4.0-10.5) K/mm3 RBC 5.36 (4.1-5.6) M/mm3 Hgb 14.6 (12.5-18.0) gm/dl Hct 44.5 (42-50) % MCV 83.0 (78-100) fl MCH 27.2 (26-32) pg MCHC 32.8 (32-36) g/dl RDW 14.1 H (11.5-14.0) % Plt Count 253 (150-450) K/mm3 MPV 9.7 H (6-9.5) fl Gran % 69.5 H (36.0-66.0) % Eos # (Auto) 0.39 (0-0.5) Absolute Lymphs (auto) 1.73 (1.0-4.6) Absolute Monos (auto) 0.81 (0.0-1.3) Lymphocytes % 17.8 L (24.0-44.0) % Monocytes % 8.4 (0.0-12.0) % Eosinophils % 4.0 (0.00-5.0) % Basophils % 0.3 (0.0-0.4) % Absolute Granulocytes 6.74 (1.4-6.9) Basophils # 0.03 (0-0.4) Sodium 139 (137-145) mmol/L Potassium 4.5 (3.5-5.1) mmol/L Chloride 97 L (98-107) mmol/L Carbon Dioxide 28 (22-30) mmol/L Anion Gap 18.7 H (5-15) MEQ/L BUN 18 (9-20) mg/dL Creatinine 1.27 H (0.66-1.25) mg/dL Estimated GFR 59.4 ML/MIN Glucose 101 (74-106) mg/dL Calcium 11.0 H (8.4-10.2) mg/dL Total Bilirubin 0.60 (0.2-1.3) mg/dL AST 27 (17-59) U/L ALT 32 (0-50) U/L Alkaline Phosphatase 65 (38-126) U/L Troponin I < 0.012 (0.000-0.034) ng/mL Serum Total Protein 7.9 (6.3-8.2) g/dL Albumin 4.5 (3.5-5.0) g/dL Lipase 89 (23-300) U/L Urine Color YELLOW (YELLOW) Urine Appearance CLEAR (CLEAR) Urine pH 5.0 (5-6) Ur Specific [place] 1.014 (1.005-1.025) Urine Protein NEGATIVE (Negative) Urine Ketones NEGATIVE (NEGATIVE) Urine Blood SMALL (0-5) Ralph/ul Urine Nitrite NEGATIVE (NEGATIVE) Urine Bilirubin NEGATIVE (NEGATIVE) Urine Urobilinogen NEGATIVE (0-1) mg/dL Ur Leukocyte Esterase NEGATIVE (NEGATIVE) Urine WBC (Auto) 0-2 (0-5) /HPF Urine RBC (Auto) NONE (0-2) /HPF U Hyaline Cast (Auto) 0-2 (0-2) /LPF U Epithel Cells (Auto) NONE (FEW) /HPF Urine Bacteria (Auto) NONE (NEGATIVE) /HPF Urine Mucus (Auto) SLIGHT (NEGATIVE) /HPF Urine Culture Reflexed NO (NO) Urine Glucose NEGATIVE (NEGATIVE) mg/dL - Progress Progress: improved Counseled pt/family regarding: lab results, diagnosis, need for follow-up, rad results - Departure Departure Disposition: Home Clinical Impression: Abdominal pain Qualifiers: Abdominal location: generalized Qualified Code(s): R10.84 - Generalized abdominal pain Condition: Stable Critical Care Time: No Referrals: PASCALE GROVES MD [Primary Care Provider] - Instructions: Acute Abdomen (Belly Pain), Adult (DC) Plan of Treatment: continue home medication. See PCP in one to 2 days. Return to the ER for an emergency. Prescriptions: Ondansetron ODT 4 MG [Zofran Odt 4 mg] 4 mg PO Q6H PRN PRN #10 tab.rapdis PRN Reason: Vomiting
[2018-12-19] MEDS ORDERED: Zofran 4 MG/2 ML VIAL IV ONE (09:17)
[2018-12-19] MEDS ORDERED: Sodium Chloride 0.9% 1000 ML 1,000 ML ONE (09:23)
[2018-12-19] MEDS ORDERED: Zofran 4 MG/2 ML VIAL ONE (09:23)
[2018-12-19] MEDS ORDERED: Sodium Chloride 0.9% 1000 ML 1,000 ML IV SCH (09:30)
[2018-12-19 09:42] LABS: BASOPHIL % 0.3 % (0.0-0.4); Basophil (Absolute #) 0.03 (0-0.4); Eosinophil (Absolute #) 0.39 (0-0.5); Granulocyte Absolute (ANC) 6.74 (1.4-6.9); Granulocytes % 69.5 % (36.0-66.0); Hematocrit 44.5 % (42-50); Hemoglobin 14.6 gm/dl (12.5-18.0); Lymphocyte (Absolute #) 1.73 (1.0-4.6); Lymphocytes % 17.8 % (24.0-44.0); Mean Corpuscular Hemoglobin 27.2 pg (26-32); Mean Corpuscular Hgb Concent. 32.8 g/dl (32-36); Mean Platelet Volume 9.7 fl (6-9.5); Monocyte (Absolute #) 0.81 (0.0-1.3); Monocytes % 8.4 % (0.0-12.0); Platelet Count 253 K/mm3 (150-450); Red Blood Count 5.36 M/mm3 (4.1-5.6); Red Cell Distribution Width 14.1 % (11.5-14.0); White Blood Count 9.7 K/mm3 (4.0-10.5)
[2018-12-19 10:03] LABS: ALBUMIN 4.5 g/dL (3.5-5.0); ALKALINE PHOSPHATASE 65 U/L (38-126); ANION GAP 18.7 MEQ/L (5-15); BLOOD UREA NITROGEN 18 mg/dL (9-20); CHLORIDE 97 mmol/L (98-107); Carbon Dioxide 28 mmol/L (22-30); Creatinine 1 1.27 mg/dL (0.66-1.25); Glucose 101 mg/dL (74-106); LIPASE 89 U/L (23-300); Potassium 4.5 mmol/L (3.5-5.1); SGOT/AST 27 U/L (17-59); SGPT/ALT 32 U/L (0-50); SODIUM 139 mmol/L (137-145); Total Protein 7.9 g/dL (6.3-8.2)
[2018-12-19 10:04] LABS: TROPONIN < 0.012 ng/mL (0.000-0.034)
[2018-12-19 10:28] LABS: Appearance CLEAR (CLEAR); Bilirubin NEGATIVE (NEGATIVE); Blood SMALL Ery/ul (0-5); Glucose NEGATIVE (NEGATIVE); Hyaline Casts 0-2 /LPF (0-2); Ketones NEGATIVE (NEGATIVE); Leukocyte Esterase NEGATIVE (NEGATIVE); Mucus SLIGHT /HPF (NEGATIVE); Nitrite NEGATIVE (NEGATIVE); Protein,Urine Dip NEGATIVE (Negative); Specific Gravity 1.014 (1.005-1.025); Urobilinogen NEGATIVE mg/dL (0-1); WBC 0-2 /HPF (0-5)
--- NOTE | 2018-12-19 12:29 | XRAY ---
Exam: CT of the abdomen and pelvis with IV contrast 12/19/2018. CTDI: 23.49 Comparison: CT of the abdomen and pelvis without IV contrast from 12/04/2018. Indication: 73-year-old male with upper mid abdominal and sternal pain since Monday. Technique: Post-IV contrast axial images were obtained through the abdomen and pelvis during automated injection of 80 cc of Isovue-370 contrast material. Delayed axial images were obtained as well. No oral contrast was given. Reconstructed coronal and sagittal images were created and reviewed. Findings: The lung bases reveals some small granulomatous calcifications within both infrahilar projections, more numerous on the right than left, and just to the right of the subcarinal region. Minimal vascular calcification is seen within the left anterior descending coronary artery on axial image #4. I note a 5.5 mm lung nodule at the posterior lateral margin of the right lung base on axial image #5 of series 2 which is unchanged. No posterior pleural fluid is seen. Incidentally, there is significant focal eventration of a large portion of the right hemidiaphragm which in retrospect is unchanged. Diffuse fatty infiltration is again seen within the liver. No focal liver mass or intrahepatic biliary duct distention is seen. The gallbladder is mildly distended and reveals no dense calcifications within it. The spleen is of normal size and reveals no mass. The pancreas and adrenal glands appear essentially unremarkable. There is questionable slight thickening of the lateral limb of the right adrenal gland on axial image #34 and the inferior aspect of the left adrenal gland on axial image #37. Small adrenal nodules are difficult to entirely exclude. I don't believe this represents a significant change in retrospect. Both kidneys function on the delayed images. I again see a 2.8 cm in diameter cyst at the posterior margin of the upper to mid aspect of the right kidney. There is a slightly larger 3.2 cm in diameter oval-shaped hypoattenuated lesion at the posterior margin of the lower pole of the left kidney. This measures +44 Hounsfield units on the delayed images. This is unchanged from 12/04/2018. MRI of the abdomen without and with IV contrast from 12/05/2018 suggested that this probably represented a hemorrhagic renal cyst rather than a neoplasm. The remainder of the kidneys appeared unremarkable. I again note some subtle bilateral perirenal stranding. No renal calculi are seen. Incidentally, prior tiny calcification near the left ureterovesical junction on axial image #76 from 12/04/2018 is not seen on the current study. This may have represented a subtle distal left ureteral stone which has passed in the interim. No ureteral distention or ureterolith is seen on the current study. There is abundant intraperitoneal fat. No abdominal aortic aneurysm is seen. Mild atherosclerotic vascular calcification within the distal abdominal aorta and proximal iliac arteries is seen. No abnormal retroperitoneal lymphadenopathy is seen. There is no free intraperitoneal air. I again note a fat-containing ventral hernia measuring about 6 cm in width just above and to the left of midline. I believe there is also a tiny fat-containing hernia just inferior to the level of the umbilicus as well. No bowel containing ventral hernia is seen. The bowel loops appear of normal diameter. There is no bowel wall thickening or obstruction. No findings of appendicitis are seen within the right lower quadrant. Again, previously noted tiny calcification at the left ureterovesical junction has evidently passed, since it is not currently seen. The urinary bladder appears relatively small. However, the upper anterior right aspect of the urinary bladder appears to herniate mildly into a prominent fat containing right inguinal hernia. There is also a smaller fat-containing left inguinal hernia. Some small postinflammatory lymph nodes are seen within each groin. There is no free fluid within the pelvis. No enlarged pelvic lymph nodes are seen. The seminal vesicles and prostate gland appear within normal limits of size. Numerous calcified phleboliths are seen within the pelvis. The skeleton reveals moderate osteoarthritic changes of both hips. I again see advanced degenerative disc disease at L5-S1 as well as minimal anterior subluxation of L5 over S1 with bilateral spondylolysis at L5. Other less pronounced anterior lateral vertebral endplate spurring is seen within the visualized thoracolumbar spine. No acute fracture or aggressive bone lesion is seen. Impression: 1. Previously noted tiny calcification at the left ureterovesical junction is no longer seen and must have represented a tiny distal left ureteral stone which has passed in the interval. 2. Incidentally, a portion of the urinary bladder appears to herniate into a patulous, fat containing prominent right inguinal hernia. This is a bit more pronounced than that seen on 12/04/2018. A smaller fat-containing left inguinal hernia is also again seen. 3. The remainder the study appears essentially unchanged from 12/04/2018 consisting of a 5.5 mm lung nodule at the posterior lateral right lung base, diffuse fatty infiltration of the liver, a questioned small isoattenuated nodule or limb thickening within the adrenal glands, a right renal cyst, a probable hemorrhagic left renal cyst, small periumbilical fat-containing ventral hernias, and skeletal findings, as discussed above. 4. No other acute process is seen within the abdomen or pelvis.
[2018-12-19 12:48] VITALS: O2SAT 98
[2018-12-19 13:28] VITALS: BP 133/93; PULSE 70
== END 2018-12-19 13:27 | disposition home or self-care (01) ==
LOC: ED 08:48
DX: R10.84 Generalized abdominal pain (principal)
CPT/HCPCS: 36000; 36415; 74177; 80053; 81001; 83690; 84484; 85025; 93005; 96360; 96361; 96374; 99284; J2405

== ENCOUNTER 2019-04-24 10:00 | Observation (INO) | payer MEDICARE ==
[2019-04-24] MEDS ORDERED: TORAdol 30 mg Injection IV ONE (10:28)
[2019-04-24] MEDS ORDERED: Sodium Chloride 0.9% 1000 ML 1,000 ML IV SCH (10:30)
--- NOTE | 2019-04-24 10:38 | ERPHSYRPT ---
- History of Present Illness Time Seen by Provider: 04/24/19 10:28 Source: patient Exam Limitations: no limitations Patient Subjective Stated Complaint: was on garage floor on monday working on something and had a diffcult time getting up. then bowled on monday evening and began having lower abd pain. states pain is worse with movement. recently dx with four abd hernias and is concerned they may be worse and causing pain. also having pain to right hand from attempting to get up from floor on monday Triage Nursing Assessment: to room per w/c. skin w/d, color normal, resp easy. tender to bilat lower abd. guarding area. Timing/Duration: today Method of Injury: unknown Quality: aching Back Pain Location: lumbar spine Back Pain Radiation: upper legs (Pain radiates from low back across lower abdomen to groin area bilaterally.) Associated Symptoms: No fever, No chills, No sweating, No urinary incontinence, No loss of bowel control, No constipation, No nausea, No vomiting, No problems urinating, No light-headedness, No numbness in legs/feet, No tingling in legs/ feet Previous symptoms: no prior history Allergies/Adverse Reactions: silk Allergy (Severe, Verified 04/24/19 10:25) Swelling 1978 stiches caused swelling Sulfa (Sulfonamide Antibiotics) [Sulfa(Sulfonamide Antibiotics)] Allergy (Mild, Verified 04/24/19 10:25) Difficulty Breathing procaine HCl [From Novocain] Adverse Reaction (Mild, Verified 04/24/19 15:22) Rapid Heart Beat steroids Adverse Reaction (Severe, Uncoded 04/24/19 15:22) GI bleeding VARIFIED Home Medications: Carvedilol 6.25 mg [Coreg 6.25 MG] 6.25 mg PO BID 03/29/12 [History] Fluoxetine HCl 20 mg [Prozac 20 MG] 20 mg PO DAILY 02/15/13 [History] Clonidine HCl 0.1 mg [Catapres 0.1 MG] 0.2 mg PO BID 08/25/15 [History] Ferrous Sulfate 325 mg [Feosol 325 mg] 1 tab PO 1700 08/25/15 [History] Hydrochlorothiazide 25 mg [hydroDIURIL 25 MG] 12.5 mg PO DAILY 08/25/15 [ History] Metformin HCl 500 mg [Glucophage 500 MG] 1,000 mg PO 0800,1700 05/13/16 [ History] Montelukast Sodium [Singulair] 10 mg PO DAILY 05/13/16 [History] Atorvastatin Calcium [Lipitor] 10 mg PO DAILY 10/22/17 [History] Glipizide 5 mg PO DAILY 10/22/17 [History] Albuterol Common Canister [Proventil Common Canister] 2 puffs PO Q12H PRN PRN 12/04/18 [History] Diclofenac Sodium Gel [Voltaren GEL] 200 gm TP Q12H PRN PRN 12/04/18 [ History] Albuterol 2.5 mg/3 ml Neb [Proventil 2.5 mg/3 ml Neb] 1 neb IH Q4HPRN PRN 04/24/19 [History] Hx Tetanus, Diphtheria Vaccination/Date Given: Yes Hx Influenza Vaccination/Date Given: Yes Hx Pneumococcal Vaccination/Date Given: Yes - Review of Systems Constitutional: No Fever, No Chills Eyes: No Symptoms Ears, Nose, & Throat: No Symptoms Respiratory: No Cough, No Dyspnea Cardiac: No Chest Pain, No Edema, No Syncope Abdominal/Gastrointestinal: No Abdominal Pain, No Nausea, No Vomiting, No Diarrhea Genitourinary Symptoms: No Dysuria Musculoskeletal: Back Pain (back ache radiates across lower abdomen into both groin ), No Neck Pain Skin: No Rash Neurological: No Dizziness, No Focal Weakness, No Sensory Changes Psychological: No Symptoms Endocrine: No Symptoms All Other Systems: Reviewed and Negative - Past Medical History Pertinent Past Medical History: Yes Neurological History: No Pertinent History ENT History: Macular Degeneration Cardiac History: Deep Vein Thrombosis, Hypertension Respiratory History: Asthma, Pneumonia, Other Endocrine Medical History: Diabetes Type II, Other Musculoskeletal History: No Pertinent History GI Medical History: GERD, GI Bleed, Hernia History: Other Psycho-Social History: Anxiety, Depression Male Reproductive Disorders: Prostate Problems Other Medical History: KIDNEY CYST - Past Surgical History Past Surgical History: Yes Neuro Surgical History: No Pertinent History Cardiac: No Pertinent History Respiratory: No Pertinent History Gastrointestinal: Hernia Repair Genitourinary: No Pertinent History Musculoskeletal: No Pertinent History Male Surgical History: Vasectomy Other Surgical History: repair to penis d/t injury several years ago vasectomy times 2 - Social History Smoking Status: Never smoker Exposure to second hand smoke: No Drug Use: none Patient Lives Alone: Yes - Nursing Vital Signs Nursing Vital Signs: Initial Vital Signs Temperature 98.5 F 04/24/19 10:12 Pulse Rate 105 H 04/24/19 10:12 Respiratory Rate 18 04/24/19 10:12 Blood Pressure 137/89 04/24/19 10:12 O2 Sat by Pulse Oximetry 97 04/24/19 10:12 Pain Scale Pain Intensity 4 - Physical Exam General Appearance: no apparent distress, alert Eye Exam: PERRL/EOMI, eyes nml inspection Ears, Nose, Throat Exam: normal ENT inspection Neck Exam: normal inspection, non-tender, supple, full range of motion, No meningismus, No midline tenderness Respiratory Exam: normal breath sounds, lungs clear, No respiratory distress Cardiovascular Exam: normal heart sounds, tachycardia (HR 105) Gastrointestinal Exam: soft, No tenderness, No mass Male [place] Exam: No testicular tenderness Back Exam: normal inspection, muscle spasm, point tenderness (TTP across lumbar paraspinal musculature. ) Extremity Exam: normal inspection, normal range of motion, No calf tenderness, No pedal edema Peripheral Pulses: femoral (R): 1+, femoral (L): 1+, dorsalis-pedis (R): 1+, dorsalis-pedis (L): 1+ Neurologic Exam: alert, oriented x 3, cooperative, chauffeur II-XII nml as tested, normal mood/affect, nml station & gait, sensation nml, No motor deficits, No sensory deficit, No confusion Skin Exam: normal color, warm, dry, No rash SpO2 Interpretation: normal SpO2: 97 O2 Delivery: Room Air - Course Nursing assessment & vital signs reviewed: Yes EKG Interpreted by Me: RATE, NORMAL AXIS, NORMAL QRS - CT Exams Abdomen/Pelvis CT Interpretation: Negative (NO acute pathology to explain patient's symptoms, Chronic inguinal hernias) Ordered Tests: Active Orders 24 hr Category Date Time Status Call Admit Doctor for Orders ON ADMISSION Care 04/24/19 14:06 Active Code Status Order ROUTINE Care 04/24/19 14:06 Active EKG-ER Only STAT Care 04/24/19 10:28 Completed IV Care Q6H Care 04/24/19 14:06 Active IV Insertion STAT Care 04/24/19 10:28 Completed Cardiac Diet Diet 04/24/19 Lunch Completed ABDOMEN AND PELVIS W/0 CONTRAS [CT] Stat Exams 04/24/19 10:30 Completed CBC W DIFF Stat Lab 04/24/19 11:00 Completed CMP Stat Lab 04/24/19 11:00 Completed LIPASE Stat Lab 04/24/19 11:00 Completed TROPONIN Q3H Lab 04/24/19 11:00 Completed TROPONIN Q3H Lab 04/24/19 13:45 Completed TROPONIN Q3H Lab 04/24/19 16:18 Completed TROPONIN Q3H Lab 04/24/19 20:00 Completed UA W/RFX UR CULTURE Stat Lab 04/24/19 14:00 Completed Medication Summary Generic Name Dose Route Start Last Admin Trade Name Freq PRN Reason Stop Dose Admin Albuterol Sulfate 2.5 mg 04/24/19 16:15 Proventil 2.5 Mg/3 Ml Neb IH 05/24/19 16:14 Q4HPRN PRN SHORTNESS OF BREATH/WHEEZING Albuterol Sulfate 2 puff 04/24/19 16:15 Proventil Common Canister IH 05/24/19 16:14 Q12H PRN PRN SHORTNESS OF BREATH Calcium Carbonate/Glycine 750 mg 04/24/19 20:18 04/24/19 20:21 Tums Ex 750 Mg PO 05/24/19 20:15 750 mg Q4H/PRN PRN Administration INDIGESTION Carvedilol 6.25 mg 04/24/19 22:00 04/24/19 20:08 Coreg 6.25 Mg PO 05/24/19 21:59 6.25 mg BID GARRY Administration Clonidine 0.2 mg 04/24/19 22:00 04/24/19 20:08 Catapres 0.1 Mg PO 05/24/19 21:59 0.2 mg BID GARRY Administration Diclofenac Sodium 2 gm 04/24/19 16:15 Voltaren Gel TP 05/24/19 16:14 QID PRN PRN Enoxaparin Sodium 40 mg 04/24/19 17:00 04/24/19 17:38 Enoxaparin Sodium SQ 05/24/19 16:59 40 mg DAILY GARRY Administration Famotidine 40 mg 04/25/19 19:42 04/24/19 20:07 Pepcid 20 Mg PO 04/25/19 19:43 40 mg STAT ONE Administration Ferrous Sulfate 325 mg 04/24/19 17:00 04/24/19 17:37 Feosol 325 Mg PO 05/24/19 16:59 325 mg 1700 GARRY Administration Fluoxetine HCl 20 mg 04/25/19 10:00 Prozac 20 Mg PO 05/25/19 09:59 DAILY GARRY Hydrochlorothiazide 12.5 mg 04/25/19 10:00 Hydrodiuril 25 Mg PO 05/25/19 09:59 DAILY GARRY Insulin Aspart 0 unit 04/24/19 16:54 04/24/19 20:35 Novolog Insulin SQ 05/24/19 16:53 5 unit UD PRN Administration HYPERGLYCEMIA Montelukast Sodium 10 mg 04/25/19 10:00 Singulair 10 Mg PO 05/25/19 09:59 DAILY GARRY Morphine Sulfate 2 mg 04/24/19 14:06 Morphine Sulfate 2 Mg Inj IV 04/29/19 14:05 Q4H PRN PRN PAIN Oxycodone/Acetaminophen 1 tab 04/24/19 16:53 04/24/19 17:37 Oxycodone-Acetaminophen 10-325 PO 04/29/19 16:52 1 tab Q4H PRN PRN Administration PAIN Discontinued Medications Generic Name Dose Route Start Last Admin Trade Name Freq PRN Reason Stop Dose Admin Calcium Carbonate/Glycine 750 mg 04/24/19 20:00 Tums Ex 750 Mg PO 05/24/19 19:59 Q4H PRN GARRY Calcium Carbonate/Glycine Confirm 04/24/19 20:01 Tums Ex 750 Mg Administered 04/24/19 20:02 Dose 750 mg .ROUTE .STK-MED ONE Calcium Carbonate/Glycine 750 mg 04/24/19 20:10 Tums Ex 750 Mg PO 04/24/19 20:11 QID PRN STA Famotidine Confirm 04/24/19 19:59 Pepcid 20 Mg Administered 04/24/19 20:00 Dose 40 mg .ROUTE .STK-MED ONE Sodium Chloride 1,000 mls @ 100 mls/hr 04/24/19 10:30 04/24/19 11:17 Sodium Chloride 0.9% 1000 Ml IV 05/24/19 10:29 100 mls/hr .Q10H GARRY Administration Sodium Chloride Confirm 04/24/19 11:15 Sodium Chloride 0.9% 1000 Ml Administered 04/24/19 11:16 Dose 1,000 mls @ ud .ROUTE .STK-MED ONE Ketorolac Tromethamine 30 mg 04/24/19 10:28 04/24/19 11:17 Toradol 30 Mg Injection IV 04/24/19 10:29 30 mg STAT ONE Administration Ketorolac Tromethamine Confirm 04/24/19 11:15 Toradol 30 Mg Injection Administered 04/24/19 11:16 Dose 30 mg .ROUTE .STK-MED ONE Triamcinolone Acetonide 40 mg 04/24/19 16:54 04/24/19 17:38 Kenalog-40 IM 04/24/19 16:55 40 mg 1XONLY ONE Administration Lab/Rad Data: Laboratory Result Diagrams 04/24/19 11:00 04/24/19 11:00 Laboratory Results 04/24/19 04/24/19 04/24/19 Range/Units 13:45 11:00 11:00 WBC (4.0-10.5) K/mm3 RBC (4.1-5.6) M/mm3 Hgb (12.5-18.0) gm/dl Hct (42-50) % MCV (78-100) fl MCH (26-32) pg MCHC (32-36) g/dl RDW (11.5-14.0) % Plt Count (150-450) K/mm3 MPV (7.5-11.0) fl Gran % (36.0-66.0) % Eos # (Auto) (0-0.5) Absolute Lymphs (auto) (1.0-4.6) Absolute Monos (auto) (0.0-1.3) Lymphocytes % (24.0-44.0) % Monocytes % (0.0-12.0) % Eosinophils % (0.00-5.0) % Basophils % (0.0-0.4) % Absolute Granulocytes (1.4-6.9) Basophils # (0-0.4) Sodium 136 L (137-145) mmol/L Potassium 4.4 (3.5-5.1) mmol/L Chloride 102 (98-107) mmol/L Carbon Dioxide 26 (22-30) mmol/L Anion Gap 12.6 (5-15) MEQ/L BUN 20 (9-20) mg/dL Creatinine 1.20 (0.66-1.25) mg/dL Estimated GFR > 60.0 ML/MIN Glucose 155 H (74-106) mg/dL Calcium 9.8 (8.4-10.2) mg/dL Total Bilirubin 0.50 (0.2-1.3) mg/dL AST 20 (17-59) U/L ALT 23 (0-50) U/L Alkaline Phosphatase 67 (38-126) U/L Troponin I < 0.012 < 0.012 (0.000-0.034) ng/mL Serum Total Protein 7.4 (6.3-8.2) g/dL Albumin 4.2 (3.5-5.0) g/dL Lipase 71 (23-300) U/L 04/24/19 Range/Units 11:00 WBC 9.9 (4.0-10.5) K/mm3 RBC 4.42 (4.1-5.6) M/mm3 Hgb 12.7 (12.5-18.0) gm/dl Hct 37.3 L (42-50) % MCV 84.4 (78-100) fl MCH 28.7 (26-32) pg MCHC 34.0 (32-36) g/dl RDW 14.2 H (11.5-14.0) % Plt Count 197 (150-450) K/mm3 MPV 9.5 (7.5-11.0) fl Gran % 75.2 H (36.0-66.0) % Eos # (Auto) 0.29 (0-0.5) Absolute Lymphs (auto) 1.23 (1.0-4.6) Absolute Monos (auto) 0.91 (0.0-1.3) Lymphocytes % 12.5 L (24.0-44.0) % Monocytes % 9.2 (0.0-12.0) % Eosinophils % 2.9 (0.00-5.0) % Basophils % 0.2 (0.0-0.4) % Absolute Granulocytes 7.40 H (1.4-6.9) Basophils # 0.02 (0-0.4) Sodium (137-145) mmol/L Potassium (3.5-5.1) mmol/L Chloride (98-107) mmol/L Carbon Dioxide (22-30) mmol/L Anion Gap (5-15) MEQ/L BUN (9-20) mg/dL Creatinine (0.66-1.25) mg/dL Estimated GFR ML/MIN Glucose (74-106) mg/dL Calcium (8.4-10.2) mg/dL Total Bilirubin (0.2-1.3) mg/dL AST (17-59) U/L ALT (0-50) U/L Alkaline Phosphatase (38-126) U/L Troponin I (0.000-0.034) ng/mL Serum Total Protein (6.3-8.2) g/dL Albumin (3.5-5.0) g/dL Lipase (23-300) U/L - Progress Progress: improved Progress Note: 04/24/19 12:39 Patient reassessed. Pain improved, but not resolved. IN light of his ongoing symptoms and difficulty walking due to pain, we will admit for pain contol and physical therapy. Case discussed with Dr. Benjamin who accepts admission to observation. Discussed with .: Konstantin Will see patient in: hospital (observation) Counseled pt/family regarding: lab results, diagnosis, rad results - Departure Departure Disposition: In-patient Admission Clinical Impression: Lumbosacral injury, Bilateral groin pain, Hepatic steatosis, Lung granuloma, Renal cyst, Spondylolisthesis Condition: Good Critical Care Time: No
[2019-04-24] MEDS ORDERED: Sodium Chloride 0.9% 1000 ML 1,000 ML ONE (11:15)
[2019-04-24] MEDS ORDERED: TORAdol 30 mg Injection ONE (11:15)
[2019-04-24 11:18] LABS: BASOPHIL % 0.2 % (0.0-0.4); Basophil (Absolute #) 0.02 (0-0.4); Eosinophil % 2.9 % (0.00-5.0); Eosinophil (Absolute #) 0.29 (0-0.5); Hematocrit 37.3 % (42-50); Hemoglobin 12.7 gm/dl (12.5-18.0); Lymphocyte (Absolute #) 1.23 (1.0-4.6); Lymphocytes % 12.5 % (24.0-44.0); Mean Cell Volume 84.4 fl (78-100); Mean Corpuscular Hemoglobin 28.7 pg (26-32); Mean Platelet Volume 9.5 fl (7.5-11.0); Monocyte (Absolute #) 0.91 (0.0-1.3); Monocytes % 9.2 % (0.0-12.0); Neutrophil % 75.2 % (36.0-66.0); Platelet Count 197 K/mm3 (150-450); Red Blood Count 4.42 M/mm3 (4.1-5.6); Red Cell Distribution Width 14.2 % (11.5-14.0); White Blood Count 9.9 K/mm3 (4.0-10.5)
[2019-04-24 11:30] LABS: ALBUMIN 4.2 g/dL (3.5-5.0); ALKALINE PHOSPHATASE 67 U/L (38-126); ANION GAP 12.6 MEQ/L (5-15); BLOOD UREA NITROGEN 20 mg/dL (9-20); CHLORIDE 102 mmol/L (98-107); Calcium 9.8 mg/dL (8.4-10.2); Carbon Dioxide 26 mmol/L (22-30); Glucose 155 mg/dL (74-106); LIPASE 71 U/L (23-300); Potassium 4.4 mmol/L (3.5-5.1); SGOT/AST 20 U/L (17-59); SGPT/ALT 23 U/L (0-50); SODIUM 136 mmol/L (137-145); Total Protein 7.4 g/dL (6.3-8.2)
--- NOTE | 2019-04-24 11:35 | XRAY ---
Indication: Lower abdomen/back pain. Multiple contiguous axial images obtained through the abdomen and pelvis without contrast as ordered. Comparison: December 19, 2018. Lung bases again demonstrates tiny calcified/noncalcified granulomas and minimal fibrosis/scarring. No infiltrate or effusion. Heart is not enlarged. Noncontrasted stomach and bowel loops remain nonobstructed. Normal appendix. No free fluid/air. Stable fatty hepatomegaly measuring 27.5 cm. Stable bilateral renal cysts, again complex cyst on the left and simple cyst on the right. Remaining liver, gallbladder, pancreas, spleen, adrenal glands, kidneys, ureters and bladder appear unremarkable for noncontrast exam. Stable mild scattered aortoiliac calcifications without AAA. Osseous structures intact again with mild degenerative changes throughout the thoracolumbar spine, bilateral L5 spondylolysis with grade 1 spondylolisthesis, and degenerative changes of both hips. Stable moderate sized fatty bilateral inguinal hernias again right greater than left. Right inguinal hernia again demonstrates small portion of urinary bladder herniating into the inguinal hernia. Impression: 1. Stable fatty hepatomegaly, bilateral renal cysts, bilateral inguinal hernias, chronic bony findings, and evidence for old granulomatous disease. 2. Remaining CT abdomen/pelvis without contrast exam is again negative.
[2019-04-24] MEDS ORDERED: MORPHINE SULFATE 2 MG INJ IV PRN (14:06)
[2019-04-24 14:12] LABS: Appearance CLEAR (CLEAR); Bilirubin NEGATIVE (NEGATIVE); Blood NEGATIVE Ery/ul (0-5); Glucose NEGATIVE (NEGATIVE); Ketones NEGATIVE (NEGATIVE); Leukocyte Esterase NEGATIVE (NEGATIVE); Mucus SLIGHT /HPF (NEGATIVE); Nitrite NEGATIVE (NEGATIVE); Protein,Urine Dip 30 (Negative); Specific Gravity 1.019 (1.005-1.025); Urobilinogen NEGATIVE mg/dL (0-1)
[2019-04-24] MEDS ORDERED: PROVENTIL COMMON CANISTER IH PRN (16:15)
[2019-04-24] MEDS ORDERED: PROVENTIL 2.5 MG/3 ML NEB IH PRN (16:15)
[2019-04-24] MEDS ORDERED: Voltaren GEL TP PRN (16:15)
[2019-04-24] MEDS ORDERED: Kenalog-40 IM ONE (16:54)
--- NOTE | 2019-04-24 16:59 | PCM.HP ---
History of Present Illness - Chief Complaint Chief Complaint: GROIN PAIN, BACK PAIN History of Present Illness: is a 73 year old male well known to me who states he was moving and installing a new work bench in his garage 3 days ago, he was struggling to get up off the ground while working to level it, he reached up with both hands to pull himself up and hands slipped, he felt a pulling sensation in his groin and low back, he is now having difficulty walking due to pain. He denies a fall, no loss of consciousness, no chest pain or shortness of breath. Pain is severe in low back and groin and he was afraid to try to care for himself at home, he is a and lives alone.. - Review of Systems Constitutional: No Fever, No Chills Respiratory: No Cough, No Short Of Breath Cardiac: No Chest Pain, No Edema, No Syncope Abdominal/Gastrointestinal: No Abdominal Pain, No Nausea, No Vomiting, No Diarrhea Musculoskeletal: Back Pain, Injury Skin: No Rash Neurological: No Dizziness, No Focal Weakness, No Sensory Changes All Other Systems: Reviewed and Negative Medications & Allergies Home Medications: Home Medication List Carvedilol 6.25 mg [Coreg 6.25 MG] 6.25 mg PO BID 03/29/12 [History Confirmed 04/24/19] Fluoxetine HCl 20 mg [Prozac 20 MG] 20 mg PO DAILY 02/15/13 [History Confirmed 04/24/19] Clonidine HCl 0.1 mg [Catapres 0.1 MG] 0.2 mg PO BID 08/25/15 [History Confirmed 04/24/19] Ferrous Sulfate 325 mg [Feosol 325 mg] 1 tab PO 1700 08/25/15 [History Confirmed 04/24/19] Hydrochlorothiazide 25 mg [hydroDIURIL 25 MG] 12.5 mg PO DAILY 08/25/15 [ History Confirmed 04/24/19] Metformin HCl 500 mg [Glucophage 500 MG] 1,000 mg PO 0800,1700 05/13/16 [ History Confirmed 04/24/19] Montelukast Sodium [Singulair] 10 mg PO DAILY 05/13/16 [History Confirmed ] Atorvastatin Calcium [Lipitor] 10 mg PO DAILY 10/22/17 [History Confirmed ] Glipizide 5 mg PO DAILY 10/22/17 [History Confirmed 04/24/19] Albuterol Common Canister [Proventil Common Canister] 2 puffs PO Q12H PRN PRN 12/04/18 [History Confirmed 04/24/19] Diclofenac Sodium Gel [Voltaren GEL] 200 gm TP Q12H PRN PRN 12/04/18 [ History Confirmed 04/24/19] Albuterol 2.5 mg/3 ml Neb [Proventil 2.5 mg/3 ml Neb] 1 neb IH Q4HPRN PRN 04/24/19 [History Confirmed 04/24/19] Allergies/Adverse Reactions: Allergies Allergy/AdvReac Type Severity Reaction Status Date / Time silk Allergy Severe Swelling Verified 04/24/19 10:25 Sulfa (Sulfonamide Allergy Mild Difficulty Verified 04/24/19 10:25 Antibiotics) Breathing [Sulfa(Sulfonamide Antibiotics)] procaine HCl [From Novocain] AdvReac Mild Rapid Verified 04/24/19 15:22 Heart Beat steroids AdvReac Severe GI bleeding Uncoded 04/24/19 15:22 - Past Medical History Past Medical History: Yes Neurological History: No Pertinent History ENT History: Macular Degeneration Cardiac History: Deep Vein Thrombosis, Hypertension CARDIAC HISTORY: High Cholesterol Respiratory History: Asthma, Pneumonia, Other Endocrine Medical History: Diabetes Type II, Other Musculoskelatal History: No Pertinent History GI Medical History: GERD, GI Bleed, Hernia History: Other Pyscho-Social History: Anxiety, Depression Male Reproductive Disorders: No Pertinent History Comment: KIDNEY CYST. KIDNEY STONE - Past Surgical History Past Surgical History: Yes Neuro Surgical History: No Pertinent History Cardiac History: No Pertinent History Respiratory Surgery: No Pertinent History GI Surgical History: Hernia Repair Genitourinary Surgical Hx: No Pertinent History Musculskeletal Surgical Hx: No Pertinent History Male Surgical History: Vasectomy Other Surgical History: repair to penis d/t injury several years ago vasectomy times 2 - Social History Smoking Status: Never smoker Exposure to second hand smoke: No Alcohol: None Drug Use: none - Physical Exam Vital Signs: Vital Signs - 24 hr Temp Pulse Resp BP Pulse Ox 04/24/19 16:40 98 04/24/19 16:00 98.2 F 100 H 18 146/87 98 04/24/19 14:34 97.9 F 101 H 18 157/72 97 04/24/19 14:06 97.9 F 101 H 18 157/72 97 04/24/19 12:53 97 H 18 123/79 98 04/24/19 12:42 97 04/24/19 12:05 95 H 18 123/79 96 04/24/19 11:48 98 H 16 129/76 97 04/24/19 10:12 98.5 F 105 H 18 137/89 97 General Appearance: no apparent distress, obese Neurologic Exam: alert, oriented x 3, 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 no obvious deformity, distal sensory and motor function are intact) Results - Labs Lab/Micro Results: Accuchecks Accucheck Value: 150 Lab Results-Last 24 Hours 04/24/19 04/24/19 04/24/19 Range/Units 11:00 11:00 11:00 WBC 9.9 (4.0-10.5) K/mm3 RBC 4.42 (4.1-5.6) M/mm3 Hgb 12.7 (12.5-18.0) gm/dl Hct 37.3 L (42-50) % MCV 84.4 (78-100) fl MCH 28.7 (26-32) pg MCHC 34.0 (32-36) g/dl RDW 14.2 H (11.5-14.0) % Plt Count 197 (150-450) K/mm3 MPV 9.5 (7.5-11.0) fl Gran % 75.2 H (36.0-66.0) % Eos # (Auto) 0.29 (0-0.5) Absolute Lymphs (auto) 1.23 (1.0-4.6) Absolute Monos (auto) 0.91 (0.0-1.3) Lymphocytes % 12.5 L (24.0-44.0) % Monocytes % 9.2 (0.0-12.0) % Eosinophils % 2.9 (0.00-5.0) % Basophils % 0.2 (0.0-0.4) % Absolute Granulocytes 7.40 H (1.4-6.9) Basophils # 0.02 (0-0.4) Sodium 136 L (137-145) mmol/L Potassium 4.4 (3.5-5.1) mmol/L Chloride 102 (98-107) mmol/L Carbon Dioxide 26 (22-30) mmol/L Anion Gap 12.6 (5-15) MEQ/L BUN 20 (9-20) mg/dL Creatinine 1.20 (0.66-1.25) mg/dL Estimated GFR > 60.0 ML/MIN Glucose 155 H (74-106) mg/dL Calcium 9.8 (8.4-10.2) mg/dL Total Bilirubin 0.50 (0.2-1.3) mg/dL AST 20 (17-59) U/L ALT 23 (0-50) U/L Alkaline Phosphatase 67 (38-126) U/L Troponin I < 0.012 (0.000-0.034) ng/mL Serum Total Protein 7.4 (6.3-8.2) g/dL Albumin 4.2 (3.5-5.0) g/dL Lipase 71 (23-300) U/L Urine Color (YELLOW) Urine Appearance (CLEAR) Urine pH (5-6) Ur Specific [place] (1.005-1.025) Urine Protein (Negative) Urine Ketones (NEGATIVE) Urine Blood (0-5) Ralph/ul Urine Nitrite (NEGATIVE) Urine Bilirubin (NEGATIVE) Urine Urobilinogen (0-1) mg/dL Ur Leukocyte Esterase (NEGATIVE) Urine WBC (Auto) (0-5) /HPF Urine RBC (Auto) (0-2) /HPF U Hyaline Cast (Auto) (0-2) /LPF U Epithel Cells (Auto) (FEW) /HPF Urine Bacteria (Auto) (NEGATIVE) /HPF Urine Mucus (Auto) (NEGATIVE) /HPF Urine Culture Reflexed (NO) Urine Glucose (NEGATIVE) mg/dL 04/24/19 04/24/19 04/24/19 Range/Units 13:45 14:00 16:18 WBC (4.0-10.5) K/mm3 RBC (4.1-5.6) M/mm3 Hgb (12.5-18.0) gm/dl Hct (42-50) % MCV (78-100) fl MCH (26-32) pg MCHC (32-36) g/dl RDW (11.5-14.0) % Plt Count (150-450) K/mm3 MPV (7.5-11.0) fl Gran % (36.0-66.0) % Eos # (Auto) (0-0.5) Absolute Lymphs (auto) (1.0-4.6) Absolute Monos (auto) (0.0-1.3) Lymphocytes % (24.0-44.0) % Monocytes % (0.0-12.0) % Eosinophils % (0.00-5.0) % Basophils % (0.0-0.4) % Absolute Granulocytes (1.4-6.9) Basophils # (0-0.4) Sodium (137-145) mmol/L Potassium (3.5-5.1) mmol/L Chloride (98-107) mmol/L Carbon Dioxide (22-30) mmol/L Anion Gap (5-15) MEQ/L BUN (9-20) mg/dL Creatinine (0.66-1.25) mg/dL Estimated GFR ML/MIN Glucose (74-106) mg/dL Calcium (8.4-10.2) mg/dL Total Bilirubin (0.2-1.3) mg/dL AST (17-59) U/L ALT (0-50) U/L Alkaline Phosphatase (38-126) U/L Troponin I < 0.012 < 0.012 (0.000-0.034) ng/mL Serum Total Protein (6.3-8.2) g/dL Albumin (3.5-5.0) g/dL Lipase (23-300) U/L Urine Color YELLOW (YELLOW) Urine Appearance CLEAR (CLEAR) Urine pH 5.0 (5-6) Ur Specific [place] 1.019 (1.005-1.025) Urine Protein 30 (Negative) Urine Ketones NEGATIVE (NEGATIVE) Urine Blood NEGATIVE (0-5) Ralph/ul Urine Nitrite NEGATIVE (NEGATIVE) Urine Bilirubin NEGATIVE (NEGATIVE) Urine Urobilinogen NEGATIVE (0-1) mg/dL Ur Leukocyte Esterase NEGATIVE (NEGATIVE) Urine WBC (Auto) 3-5 (0-5) /HPF Urine RBC (Auto) NONE (0-2) /HPF U Hyaline Cast (Auto) 3-5 (0-2) /LPF U Epithel Cells (Auto) NONE (FEW) /HPF Urine Bacteria (Auto) NONE (NEGATIVE) /HPF Urine Mucus (Auto) SLIGHT (NEGATIVE) /HPF Urine Culture Reflexed NO (NO) Urine Glucose NEGATIVE (NEGATIVE) mg/dL Accuchecks Accucheck Value: 150 - Radiology Impressions Radiology Exams & Impressions: Radiology Procedures Category Date Time Status ABDOMEN AND PELVIS W/0 CONTRAS [CT] Stat Exams 04/24/19 10:30 Completed - Other Procedures and Tests Respiratory Therapy 04/24/19 16:40 Respiratory Therapy Assessment DAILY Assessment/Plan (1) Intractable low back pain Current Visit: Yes Status: Acute Assessment & Plan: percocet po for pain, PT consult pending. Code(s): M54.5 - LOW BACK PAIN (2) Bilateral groin pain Current Visit: Yes Status: Acute Code(s): R10.31 - RIGHT LOWER QUADRANT PAIN ; R10.32 - LEFT LOWER QUADRANT PAIN (3) Lumbosacral injury Current Visit: Yes Status: Acute Code(s): S39.92XA - UNSPECIFIED INJURY OF LOWER BACK, INITIAL ENCOUNTER
[2019-04-24] MEDS: FEOSOL 325 MG PO SCH (17:37)
[2019-04-24] MEDS: OXYCODONE-ACETAMINOPHEN 10-325 PO PRN (17:37)
[2019-04-24] MEDS: ENOXAPARIN SODIUM SQ SCH (17:38)
[2019-04-24] MEDS ORDERED: Pepcid 20 MG ONE (19:59)
[2019-04-24] MEDS ORDERED: Tums EX 750 MG PO SCH (20:00)
[2019-04-24] MEDS ORDERED: Tums EX 750 MG ONE (20:01)
[2019-04-24] MEDS: Catapres 0.1 MG PO SCH (20:08)
[2019-04-24] MEDS: Coreg 6.25 MG PO SCH (20:08)
[2019-04-24] MEDS ORDERED: Tums EX 750 MG PO STA (20:10)
[2019-04-24] MEDS ORDERED: Tums EX 750 MG PO PRN (20:18)
[2019-04-24] MEDS: NovoLOG Insulin SQ PRN (20:35)
[2019-04-25] MEDS: OXYCODONE-ACETAMINOPHEN 10-325 PO PRN ×4 (07:22→21:21)
[2019-04-25] MEDS: Singulair 10 MG PO SCH (08:27)
[2019-04-25] MEDS: Catapres 0.1 MG PO SCH ×2 (08:27→21:20)
[2019-04-25] MEDS: hydroDIURIL 25 MG PO SCH (08:27)
--- NOTE | 2019-04-25 08:27 | PCM.NOTE ---
Date and Time: 04/25/19825 Subjective Assessment: patient reports improvement in his symptoms, still has significant soreness in left groin and difficulty with function. pain med is helpful Objective Exam General Appearance: no apparent distress, obese Neurologic Exam: alert, oriented x 3, cooperative Respiratory Exam: normal breath sounds, lungs clear, No respiratory distress Gastrointestinal/Abdomen Exam: soft, No tenderness, No mass Extremity Exam: other (difficulty with movement of legs secondary to groin pain) OBJECTIVE DATA Vital Signs: Vital Signs - 24 hr Temp Pulse Resp BP Pulse Ox 04/25/19 07:40 97.3 F 88 20 172/110 96 04/25/19 07:27 97.3 F 88 20 175/101 96 04/25/19 07:01 99 04/25/19 04:00 97.9 F 89 22 156/92 94 L 04/25/19 02:51 97 04/25/19 00:00 98.5 F 70 20 125/83 95 04/24/19 20:33 105 H 18 95 04/24/19 20:00 99.1 F 98 H 20 156/96 96 04/24/19 16:40 98 04/24/19 16:00 98.2 F 100 H 18 146/87 98 04/24/19 14:34 97.9 F 101 H 18 157/72 97 04/24/19 14:06 97.9 F 101 H 18 157/72 97 04/24/19 12:53 97 H 18 123/79 98 04/24/19 12:05 95 H 18 123/79 96 04/24/19 11:48 98 H 16 129/76 97 04/24/19 10:12 98.5 F 105 H 18 137/89 97 Pain Assessment - Last Documented Pain Intensity 3 Pain Scale Used 0-10 Pain Scale Intake and Output: Intake & Output 04/22/19 04/23/19 04/24/19 04/25/19 11:59 11:59 11:59 11:59 Intake Total 1976 Output Total 275 Balance 1701 Weight 113.398 kg 114.7 kg Lab Results: Accuchecks Date 04/25/19 Date 04/24/19 Time 08:21 Time 21:30 Accucheck Value: 170 Accucheck Value: 203 Accucheck Value: 150 Lab Results-Last 24 Hours 04/24/19 04/24/19 04/24/19 Range/Units 11:00 11:00 11:00 WBC 9.9 (4.0-10.5) K/mm3 RBC 4.42 (4.1-5.6) M/mm3 Hgb 12.7 (12.5-18.0) gm/dl Hct 37.3 L (42-50) % MCV 84.4 (78-100) fl MCH 28.7 (26-32) pg MCHC 34.0 (32-36) g/dl RDW 14.2 H (11.5-14.0) % Plt Count 197 (150-450) K/mm3 MPV 9.5 (7.5-11.0) fl Gran % 75.2 H (36.0-66.0) % Eos # (Auto) 0.29 (0-0.5) Absolute Lymphs (auto) 1.23 (1.0-4.6) Absolute Monos (auto) 0.91 (0.0-1.3) Lymphocytes % 12.5 L (24.0-44.0) % Monocytes % 9.2 (0.0-12.0) % Eosinophils % 2.9 (0.00-5.0) % Basophils % 0.2 (0.0-0.4) % Absolute Granulocytes 7.40 H (1.4-6.9) Basophils # 0.02 (0-0.4) Sodium 136 L (137-145) mmol/L Potassium 4.4 (3.5-5.1) mmol/L Chloride 102 (98-107) mmol/L Carbon Dioxide 26 (22-30) mmol/L Anion Gap 12.6 (5-15) MEQ/L BUN 20 (9-20) mg/dL Creatinine 1.20 (0.66-1.25) mg/dL Estimated GFR > 60.0 ML/MIN Glucose 155 H (74-106) mg/dL Calcium 9.8 (8.4-10.2) mg/dL Total Bilirubin 0.50 (0.2-1.3) mg/dL AST 20 (17-59) U/L ALT 23 (0-50) U/L Alkaline Phosphatase 67 (38-126) U/L Troponin I < 0.012 (0.000-0.034) ng/mL Serum Total Protein 7.4 (6.3-8.2) g/dL Albumin 4.2 (3.5-5.0) g/dL Lipase 71 (23-300) U/L Urine Color (YELLOW) Urine Appearance (CLEAR) Urine pH (5-6) Ur Specific [place] (1.005-1.025) Urine Protein (Negative) Urine Ketones (NEGATIVE) Urine Blood (0-5) Ralph/ul Urine Nitrite (NEGATIVE) Urine Bilirubin (NEGATIVE) Urine Urobilinogen (0-1) mg/dL Ur Leukocyte Esterase (NEGATIVE) Urine WBC (Auto) (0-5) /HPF Urine RBC (Auto) (0-2) /HPF U Hyaline Cast (Auto) (0-2) /LPF U Epithel Cells (Auto) (FEW) /HPF Urine Bacteria (Auto) (NEGATIVE) /HPF Urine Mucus (Auto) (NEGATIVE) /HPF Urine Culture Reflexed (NO) Urine Glucose (NEGATIVE) mg/dL 04/24/19 04/24/19 04/24/19 Range/Units 13:45 14:00 16:18 WBC (4.0-10.5) K/mm3 RBC (4.1-5.6) M/mm3 Hgb (12.5-18.0) gm/dl Hct (42-50) % MCV (78-100) fl MCH (26-32) pg MCHC (32-36) g/dl RDW (11.5-14.0) % Plt Count (150-450) K/mm3 MPV (7.5-11.0) fl Gran % (36.0-66.0) % Eos # (Auto) (0-0.5) Absolute Lymphs (auto) (1.0-4.6) Absolute Monos (auto) (0.0-1.3) Lymphocytes % (24.0-44.0) % Monocytes % (0.0-12.0) % Eosinophils % (0.00-5.0) % Basophils % (0.0-0.4) % Absolute Granulocytes (1.4-6.9) Basophils # (0-0.4) Sodium (137-145) mmol/L Potassium (3.5-5.1) mmol/L Chloride (98-107) mmol/L Carbon Dioxide (22-30) mmol/L Anion Gap (5-15) MEQ/L BUN (9-20) mg/dL Creatinine (0.66-1.25) mg/dL Estimated GFR ML/MIN Glucose (74-106) mg/dL Calcium (8.4-10.2) mg/dL Total Bilirubin (0.2-1.3) mg/dL AST (17-59) U/L ALT (0-50) U/L Alkaline Phosphatase (38-126) U/L Troponin I < 0.012 < 0.012 (0.000-0.034) ng/mL Serum Total Protein (6.3-8.2) g/dL Albumin (3.5-5.0) g/dL Lipase (23-300) U/L Urine Color YELLOW (YELLOW) Urine Appearance CLEAR (CLEAR) Urine pH 5.0 (5-6) Ur Specific [place] 1.019 (1.005-1.025) Urine Protein 30 (Negative) Urine Ketones NEGATIVE (NEGATIVE) Urine Blood NEGATIVE (0-5) Ralph/ul Urine Nitrite NEGATIVE (NEGATIVE) Urine Bilirubin NEGATIVE (NEGATIVE) Urine Urobilinogen NEGATIVE (0-1) mg/dL Ur Leukocyte Esterase NEGATIVE (NEGATIVE) Urine WBC (Auto) 3-5 (0-5) /HPF Urine RBC (Auto) NONE (0-2) /HPF U Hyaline Cast (Auto) 3-5 (0-2) /LPF U Epithel Cells (Auto) NONE (FEW) /HPF Urine Bacteria (Auto) NONE (NEGATIVE) /HPF Urine Mucus (Auto) SLIGHT (NEGATIVE) /HPF Urine Culture Reflexed NO (NO) Urine Glucose NEGATIVE (NEGATIVE) mg/dL 04/24/19 Range/Units 20:00 WBC (4.0-10.5) K/mm3 RBC (4.1-5.6) M/mm3 Hgb (12.5-18.0) gm/dl Hct (42-50) % MCV (78-100) fl MCH (26-32) pg MCHC (32-36) g/dl RDW (11.5-14.0) % Plt Count (150-450) K/mm3 MPV (7.5-11.0) fl Gran % (36.0-66.0) % Eos # (Auto) (0-0.5) Absolute Lymphs (auto) (1.0-4.6) Absolute Monos (auto) (0.0-1.3) Lymphocytes % (24.0-44.0) % Monocytes % (0.0-12.0) % Eosinophils % (0.00-5.0) % Basophils % (0.0-0.4) % Absolute Granulocytes (1.4-6.9) Basophils # (0-0.4) Sodium (137-145) mmol/L Potassium (3.5-5.1) mmol/L Chloride (98-107) mmol/L Carbon Dioxide (22-30) mmol/L Anion Gap (5-15) MEQ/L BUN (9-20) mg/dL Creatinine (0.66-1.25) mg/dL Estimated GFR ML/MIN Glucose (74-106) mg/dL Calcium (8.4-10.2) mg/dL Total Bilirubin (0.2-1.3) mg/dL AST (17-59) U/L ALT (0-50) U/L Alkaline Phosphatase (38-126) U/L Troponin I < 0.012 (0.000-0.034) ng/mL Serum Total Protein (6.3-8.2) g/dL Albumin (3.5-5.0) g/dL Lipase (23-300) U/L Urine Color (YELLOW) Urine Appearance (CLEAR) Urine pH (5-6) Ur Specific [place] (1.005-1.025) Urine Protein (Negative) Urine Ketones (NEGATIVE) Urine Blood (0-5) Ralph/ul Urine Nitrite (NEGATIVE) Urine Bilirubin (NEGATIVE) Urine Urobilinogen (0-1) mg/dL Ur Leukocyte Esterase (NEGATIVE) Urine WBC (Auto) (0-5) /HPF Urine RBC (Auto) (0-2) /HPF U Hyaline Cast (Auto) (0-2) /LPF U Epithel Cells (Auto) (FEW) /HPF Urine Bacteria (Auto) (NEGATIVE) /HPF Urine Mucus (Auto) (NEGATIVE) /HPF Urine Culture Reflexed (NO) Urine Glucose (NEGATIVE) mg/dL Radiology Exams: Radiology Procedures Category Date Time Status ABDOMEN AND PELVIS W/0 CONTRAS [CT] Stat Exams 04/24/19 10:30 Completed Assessment/Plan (1) Intractable low back pain Current Visit: Yes Status: Acute Code(s): M54.5 - LOW BACK PAIN (2) Bilateral groin pain Current Visit: Yes Status: Acute Code(s): R10.31 - RIGHT LOWER QUADRANT PAIN ; R10.32 - LEFT LOWER QUADRANT PAIN (3) Lumbosacral injury Current Visit: Yes Status: Acute Code(s): S39.92XA - UNSPECIFIED INJURY OF LOWER BACK, INITIAL ENCOUNTER
[2019-04-25] MEDS: Coreg 6.25 MG PO SCH ×2 (08:28→21:21)
[2019-04-25] MEDS: ENOXAPARIN SODIUM SQ SCH (08:28)
[2019-04-25] MEDS: Prozac 20 MG PO SCH (08:28)
[2019-04-25] MEDS: NovoLOG Insulin SQ PRN ×2 (12:12→23:04)
[2019-04-25] MEDS: FEOSOL 325 MG PO SCH (16:20)
--- NOTE | 2019-04-25 16:32 | XRAY ---
Indication: Pain following injury. Comparison: None 2 views of the left hip demonstrates mild osteopenia and moderate degenerative changes. No other bony, articular, or soft tissue abnormalities.
--- NOTE | 2019-04-25 16:34 | XRAY ---
Indication: Low back pain following injury. 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 No other bony, articular, or soft tissue abnormalities. Impression: Nonacute lumbar spine with chronic features.
[2019-04-25] MEDS ORDERED: Pepcid 20 MG PO ONE (19:42)
[2019-04-26] MEDS: OXYCODONE-ACETAMINOPHEN 10-325 PO PRN ×5 (01:21→20:34)
[2019-04-26] MEDS: NovoLOG Insulin SQ PRN ×2 (07:40→16:07)
--- NOTE | 2019-04-26 08:26 | PCM.NOTE ---
Date and Time: 04/26/19 08 Subjective Assessment: patient reports he is moving a little better but still having severe left hip/ groin pain and difficulty with ambulation and transfer from bed. xrays were negative Objective Exam General Appearance: no apparent distress, alert, obese Neurologic Exam: alert, oriented x 3 Respiratory Exam: normal breath sounds, lungs clear, No respiratory distress Cardiovascular Exam: regular rate/rhythm, normal heart sounds Gastrointestinal/Abdomen Exam: soft, No tenderness, No mass Extremity Exam: other (unable to perform SLR on left secondary to pain, distal sensation and motor function intact) OBJECTIVE DATA Vital Signs: Vital Signs - 24 hr Temp Pulse Resp BP Pulse Ox 04/26/19 08:00 97.4 F 78 20 143/92 96 04/26/19 04:00 97.9 F 87 20 132/77 96 04/25/19 23:58 97.8 F 86 19 121/75 97 04/25/19 21:18 83 18 96 04/25/19 19:48 97.9 F 86 19 144/86 96 04/25/19 16:00 97.4 F 96 H 18 142/80 98 04/25/19 12:00 97.8 F 84 20 143/75 95 Pain Assessment - Last Documented Pain Intensity 3 Pain Scale Used 0-10 Pain Scale Intake and Output: Intake & Output 04/23/19 04/24/19 04/25/19 04/26/19 11:59 11:59 11:59 11:59 Intake Total 2216 2220 Output Total 275 200 Balance 1942019 Weight 113.398 kg 114.7 kg Lab Results: Accuchecks Date 04/26/19 Date 04/25/19 Date 04/25/19 Date 04/25/19 Time 07:39 Time 22:00 Time 16:35 Time 12:17 Accucheck Value: 187 Accucheck Value: 206 Accucheck Value: 174 Accucheck Value: 216 Lab Results-Last 24 Hours 04/25/19 Range/Units 12:15 Hemoglobin A1c 8.08 H (4.5-6.0) % Radiology Exams: Radiology Procedures Category Date Time Status ABDOMEN AND PELVIS W/0 CONTRAS [CT] Stat Exams 04/24/19 10:30 Completed HIP UNI (2V) INCL PEL IF DONE Routine Exams 04/25/19 14:20 Completed LUMBAR LIMITED (2 OR 3 VIEWS) Routine Exams 04/25/19 14:20 Completed Multi-Disciplinary Progress Notes: Multi-Disciplinary Progress Notes 04/25/19 14:56 Physical Therapy Note by Ev Machado PT. REPORTS DECREASED L GROIN PN W/ MEDS. 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 SPOKE W/ NURSING TO REQUEST L HIP AND L-SPINE XRAYS. PT. AMBULATED ~ 50' W/ STC R HAND IN ROOM AND SBA. HE FELT CANE DID DECREASE PN AND INCREASE STABILITY W/ GAIT. FEEL PT. WOULD BENEFIT FROM ONE AT HOME UPON D/C. PROVIDED PT. W/ CP TO L HIP FOR PN/INFLAMMATION MG' T. WILL CONT. P.T. DURING STAY. EV MACHADO PT Initialized on 04/25/19 14:56 - END OF NOTE Assessment/Plan (1) Intractable low back pain Current Visit: Yes Status: Acute Assessment & Plan: continue therapy, home when safe and able to perform ADL's independently Code(s): M54.5 - LOW BACK PAIN (2) Bilateral groin pain Current Visit: Yes Status: Acute Code(s): R10.31 - RIGHT LOWER QUADRANT PAIN ; R10.32 - LEFT LOWER QUADRANT PAIN (3) Lumbosacral injury Current Visit: Yes Status: Acute Code(s): S39.92XA - UNSPECIFIED INJURY OF LOWER BACK, INITIAL ENCOUNTER
[2019-04-26] MEDS: Singulair 10 MG PO SCH (09:22)
[2019-04-26] MEDS: hydroDIURIL 25 MG PO SCH (09:22)
[2019-04-26] MEDS: ENOXAPARIN SODIUM SQ SCH (09:23)
[2019-04-26] MEDS: Prozac 20 MG PO SCH (09:23)
[2019-04-26] MEDS: Coreg 6.25 MG PO SCH ×2 (09:23→21:29)
[2019-04-26] MEDS: Catapres 0.1 MG PO SCH ×2 (09:23→21:29)
[2019-04-26] MEDS: FEOSOL 325 MG PO SCH ×2 (16:05→16:06)
[2019-04-26] MEDS: Colace 100 MG PO SCH (21:29)
[2019-04-27] MEDS: OXYCODONE-ACETAMINOPHEN 10-325 PO PRN ×2 (00:34→04:46)
[2019-04-27] MEDS: Colace 100 MG PO SCH (09:03)
[2019-04-27] MEDS: Catapres 0.1 MG PO SCH (09:04)
[2019-04-27] MEDS: hydroDIURIL 25 MG PO SCH (09:04)
[2019-04-27] MEDS: Coreg 6.25 MG PO SCH (09:06)
[2019-04-27] MEDS: Singulair 10 MG PO SCH (09:06)
[2019-04-27] MEDS: Prozac 20 MG PO SCH (09:06)
[2019-04-27] MEDS: NovoLOG Insulin SQ PRN ×2 (09:09→12:31)
[2019-04-27] MEDS: ENOXAPARIN SODIUM SQ SCH (09:11)
[2019-04-27 12:25] VITALS: BP 131/82; PULSE 85; O2SAT 95
--- NOTE | 2019-04-27 14:18 | PCM.DS ---
Discharge Summary Date of Admission: 04/24/19 13:55 Admitting Physician: PASCALE GROVES Primary Care Provider: PASCALE GROVES Allergies Allergies silk Allergy (Severe, Verified 04/24/19 10:25) Swelling 1978 stiches caused swelling Sulfa (Sulfonamide Antibiotics) [Sulfa(Sulfonamide Antibiotics)] Allergy (Mild, Verified 04/24/19 10:25) Difficulty Breathing procaine HCl [From Novocain] Adverse Reaction (Mild, Verified 04/24/19 15:22) Rapid Heart Beat steroids Adverse Reaction (Severe, Uncoded 04/24/19 15:22) GI bleeding VARIFIED Hospital Summary - Hospital Course Hospital Course: Pt is 73 yo male pt of Dr. Groves' who was admitted through ER after he hurt his lower back and bilat groin after working on a project at home. He was found not to have any fractures, but was kept for pain control. Was having a hard time getting in and out of bed and transferring. Pt lives alone. Today I see him in the [facility] doing exercises. Still having some complaint of L groin pain, but it is improved. Pt will be discharged to home today. Already has PT appt for Monday. F/u with Dr. Groves in1 wk. - Vitals & Intake/Output Vital Signs: Vital Signs Temperature 98.1 F 04/27/19 12:00 Pulse Rate 85 04/27/19 12:00 Respiratory Rate 18 04/27/19 12:00 Blood Pressure 131/82 04/27/19 12:00 O2 Sat by Pulse Oximetry 95 04/27/19 12:00 Intake & Output: Intake & Output 04/25/19 04/26/19 04/27/19 04/28/19 11:59 11:59 11:59 11:59 Intake Total 2216 2940 1480 Output Total 275 200 Balance 1941 2740 1480 Weight 114.7 kg - Lab Result Diagrams: 04/24/19 11:00 04/24/19 11:00 Lab Results-Last 24 Hrs: Accuchecks Date 04/26/19 Time 17:06 Accucheck Value: 198 Accucheck Value: 167 Accucheck Value: 150 Accucheck Value: 217 Micro Results-Entire Visit: Accuchecks Date 04/26/19 Time 17:06 Accucheck Value: 198 Accucheck Value: 167 Accucheck Value: 150 Accucheck Value: 217 - Radiology Exams Ordered Rad Exams-Entire Visit: Radiology Procedures Category Date Time Status HIP UNI (2V) INCL PEL IF DONE Routine Exams 04/25/19 14:20 Completed LUMBAR LIMITED (2 OR 3 VIEWS) Routine Exams 04/25/19 14:20 Completed - Procedures and Test Procedures and Tests throughout Hospitalization: Therapy Orders & Screens 04/24/19 15:15 OT Screen per Nursing Assess Comment: Protocol Order Physician Instructions: Greater than 3 points order OT Admission Screening Reason For Exam: Triggered on Admission Diagnosis: GROIN PAIN, BACK PAIN Open Wound/Cellutlitis/Pressure Ulcers: No Acute Fx/ORIF/Change in wt bearing status: No Severe MUSCULOSKELETAL pain: Yes ADL Dysfunction: No Acute CVA w/Hemiparesis/Hemiplegia: No Decreased Functional Mobility/Strength: Yes Sprain/Strain: Yes Acute Post-op Mobility Dysfunction: No Total Points: 9 PT Screen per Nursing Assess Comment: Protocol Order Physician Instructions: Greater than 3 points order PT Admission Screenin Reason For Exam: Triggered on Admission Diagnosis: GROIN PAIN, BACK PAIN Open Wound/Cellutlitis/Pressure Ulcers: No Acute Fx/ORIF/Change in wt bearing status: No Severe MUSCULOSKELETAL pain: Yes ADL Dysfunction: No Acute CVA w/Hemiparesis/Hemiplegia: No Decreased Functional Mobility/Strength: Yes Sprain/Strain: Yes Acute Post-op Mobility Dysfunction: No Total Points: 9 04/24/19 16:40 Respiratory Therapy Assessment DAILY Comment: Diagnosis: GROIN PAIN, BACK PAIN 04/24/19 16:53 PT Eval & Treat (MD Order) ROUTINE Reason for Eval:: lumbar/groin strain Diagnosis: GROIN PAIN, BACK PAIN Discharge Exam General Appearance: no apparent distress, alert, obese Neurologic Exam: oriented x 3, cooperative Eye Exam: eyes nml inspection Ears, Nose, Throat Exam: moist mucous membranes Neck Exam: normal inspection Respiratory Exam: normal breath sounds, lungs clear, No crackles/rales, No rhonchi, No wheezing Cardiovascular Exam: regular rate/rhythm, normal heart sounds, No murmur Back Exam: normal inspection, No rash Extremity Exam: No swelling Skin Exam: normal color, warm, dry, No rash Final Diagnosis/Problem List - Final Discharge Diagnosis/Problem (1) Bilateral groin pain Current Visit: Yes Status: Acute Assessment & Plan: Resolved on R, still having pain on L but able to move around/walk and do exercises. Home to f/u with PT next week. Home on percocet 5/325. INSPECT appropriate today 04/27/19. Code(s): R10.31 - RIGHT LOWER QUADRANT PAIN; R10.32 - LEFT LOWER QUADRANT PAIN (2) Intractable low back pain Current Visit: Yes Status: Resolved Code(s): M54.5 - LOW BACK PAIN (3) Lumbosacral injury Current Visit: Yes Status: Resolved Code(s): S39.92XA - UNSPECIFIED INJURY OF LOWER BACK, INITIAL ENCOUNTER - Discharge Disposition: Home, Self-Care Condition: Good Prescriptions: New Oxycodone / APAP 10/325 mg [Oxycodone-Acetaminophen 10-325] 1 tab PO Q6H PRN PRN #28 tablet MDD 4 PRN Reason: Pain Continue Carvedilol 6.25 mg [Coreg 6.25 MG] 6.25 mg PO BID Fluoxetine HCl 20 mg [Prozac 20 MG] 20 mg PO DAILY Ferrous Sulfate 325 mg [Feosol 325 mg] 1 tab PO 1700 Clonidine HCl 0.1 mg [Catapres 0.1 MG] 0.2 mg PO BID Hydrochlorothiazide 25 mg [hydroDIURIL 25 MG] 12.5 mg PO DAILY Metformin HCl 500 mg [Glucophage 500 MG] 1,000 mg PO 0800,1700 Montelukast Sodium [Singulair] 10 mg PO DAILY Glipizide 5 mg PO DAILY Atorvastatin Calcium [Lipitor] 10 mg PO DAILY Albuterol Common Canister [Proventil Common Canister] 2 puffs PO Q12H PRN PRN PRN Reason: Shortness Of Breath Diclofenac Sodium Gel [Voltaren GEL] 200 gm TP Q12H PRN PRN PRN Reason: Pain And/Or Fever Albuterol 2.5 mg/3 ml Neb [Proventil 2.5 mg/3 ml Neb] 1 neb IH Q4HPRN PRN PRN Reason: Shortness Of Breath/Wheezing Additional Instructions: YOU HAVE AN APPOINTMENT WITH PHYSICAL THERAPY ON April AT 11:00 AM. IF FOR ANY REASON YOU NEED TO RESCHEDULE, CALL US MONDAY MORNING AT [phone]. Follow up with: PASCALE GROVES MD [Primary Care Provider] - 1 Week
== END 2019-04-27 14:45 | disposition home or self-care (01) ==
LOC: ED 10:00 → MED SURG 13:55
PROVIDERS: ADMIT Family Medicine; ATTEND Family Medicine
DX: R10.32 Left lower quadrant pain (principal); R10.31 Right lower quadrant pain; M54.5 Low back pain; S39.92XA Unspecified injury of lower back, initial encounter; Z79.899 Other long term (current) drug therapy; X50.0XXA Overexertion from strenuous movement or load, initial encounter; X50.9XXA Other and unspecified overexertion or strenuous movements or postures, initial encounter; Y93.89 Activity, other specified; Y92.008 Other place in unspecified non-institutional (private) residence as the place of occurrence of the external cause; E11.9 Type 2 diabetes mellitus without complications; I10 Essential (primary) hypertension; E78.00 Pure hypercholesterolemia, unspecified; Z86.718 Personal history of other venous thrombosis and embolism
CPT/HCPCS: 36000; 36415; 72100; 73502; 74176; 80053; 81001; 82962; 83036; 83690; 84484; 85025; 93005; 94760; 96374; 97110; 97161; 97530; 99285; G0283; G0378; 97014; J1650; J1885; J3301; A9270-GY

== ENCOUNTER 2022-01-03 16:15 | Emergency (ER) | payer MEDICARE ==
--- NOTE | 2022-01-03 16:53 | ERPHSYRPT ---
- History of Present Illness Time Seen by Provider: 01/03/22 16:45 Source: patient Exam Limitations: no limitations Patient Subjective Stated Complaint: pt here for b/p problems, had a recent change in meds. he was sent from clinic to be seen, pt co weakness today while bowling. Triage Nursing Assessment: pt arrived per wc, alert, face mask in place, resp easy, skin w/d/p. abd soft, moves all ext well Physician History: This is an obese 76-year-old white male patient of Dr. Groves who had a recent change in her blood pressure medication. Patient stated that he felt off today. He felt cool and clammy and bit nauseated. This occurred in the middle of bowling. He denies chest pain and he denies shortness of breath. He felt very weak today. Therefore, he went to the [facility] who then sent him to us because of the presence of multiple complaints and the fact that this patient has multiple medical issues including hypertension, pulmonary embolus, [id number] diabetes, hyperlipidemia, asthma, obesity, gastroesophageal reflux disease and peripheral neuropathy. Patient has not been placed on anticoagulation therapy even though he has had a pulmonary embolus in the past because he had a significant, emergent bleed while on anticoagulant therapy in 2012. Patient checked his blood sugar at the time he was feeling poorly. That value was 112. Patient states he likes to be in the 120 to 150 r tia. Timing/Duration: today Severity: mild (And improved since his episode earlier this afternoon) Associated Symptoms: diaphoresis (Earlier this afternoon), weakness (Earlier this afternoon), No nausea, No vomiting, No abdominal pain, No shortness of breath, No chest pain Allergies/Adverse Reactions: silk Allergy (Severe, Verified 01/03/22 16:29) Swelling 1978 stiches caused swelling Sulfa (Sulfonamide Antibiotics) [Sulfa(Sulfonamide Antibiotics)] Allergy (Mild, Verified 01/03/22 16:29) Difficulty Breathing procaine HCl [From Novocain] Adverse Reaction (Mild, Verified 01/03/22 16:29) Rapid Heart Beat steroids Adverse Reaction (Severe, Uncoded 01/03/22 16:29) GI bleeding VARIFIED Home Medications: Carvedilol [Coreg ] 6.25 mg PO BID 03/29/12 [History] Fluoxetine HCl 20 mg [Prozac 20 MG] 20 mg PO DAILY 02/15/13 [History] Clonidine HCl 0.1 mg [Clonidine 0.1 mg Tablet] 0.2 mg PO BID 08/25/15 [History] Ferrous Sulfate 325 mg [Feosol 325 mg] 1 tab PO 1700 08/25/15 [History] Hydrochlorothiazide 25 mg [hydroDIURIL 25 MG] 12.5 mg PO DAILY 08/25/15 [History] Metformin HCl 500 mg [Glucophage 500 MG] 1,000 mg PO 0800,1700 05/13/16 [History] Montelukast Sodium [Singulair] 10 mg PO DAILY 05/13/16 [History] Atorvastatin Calcium [Lipitor] 10 mg PO DAILY 10/22/17 [History] glipiZIDE [Glipizide] 5 mg PO DAILY 10/22/17 [History] Albuterol Common Canister [Ventolin Common Canister] 2 puffs PO Q12H PRN PRN 12/04/18 [History] Diclofenac Sodium Gel [Voltaren GEL] 200 gm TP Q12H PRN PRN 12/04/18 [History] Albuterol 2.5 mg/3 ml Neb [Proventil 2.5 mg/3 ml Neb] 1 neb IH Q4HPRN PRN 04/24/19 [History] Hx Tetanus, Diphtheria Vaccination/Date Given: Yes Hx Influenza Vaccination/Date Given: Yes Hx Pneumococcal Vaccination/Date Given: Yes Immunizations Up to Date: Yes Travel Risk - International Travel Have you traveled outside of the country in past 3 weeks: No - Coronavirus Screening Are you exhibiting any of the following symptoms?: No - Vaccine Status Have you recieved a Covid-19 vaccination: Yes 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: [employer] - Vaccination Dates Date of 2cond Vaccination (if applicable): 2020 - Review of Systems Constitutional: Weakness Eyes: No Symptoms Ears, Nose, & Throat: No Symptoms, Throat Swelling Cardiac: No Symptoms Abdominal/Gastrointestinal: No Symptoms Genitourinary Symptoms: No Symptoms Musculoskeletal: No Symptoms Skin: No Symptoms Neurological: No Symptoms Psychological: No Symptoms Endocrine: No Symptoms Hematologic/Lymphatic: No Symptoms Immunological/Allergic: No Symptoms All Other Systems: Reviewed and Negative - Past Medical History Pertinent Past Medical History: Yes Neurological History: Peripheral Neuropathy ENT History: Macular Degeneration Cardiac History: Hypertension Respiratory History: Asthma Endocrine Medical History: Diabetes Type II Musculoskeletal History: Arthritis, Osteoarthritis GI Medical History: GERD, GI Bleed, Hernia History: Other Psycho-Social History: Anxiety, Depression Male Reproductive Disorders: Prostate Problems Other Medical History: HX MM. STRAINS - Past Surgical History Past Surgical History: Yes Neuro Surgical History: No Pertinent History Cardiac: No Pertinent History Respiratory: No Pertinent History Gastrointestinal: Hernia Repair Genitourinary: No Pertinent History Musculoskeletal: No Pertinent History Male Surgical History: Vasectomy Other Surgical History: repair to penis d/t injury several years ago vasectomy times 2 - Social History Smoking Status: Never smoker Exposure to second hand smoke: No Drug Use: none Patient Lives Alone: Yes - Nursing Vital Signs Nursing Vital Signs: Initial Vital Signs Pulse Rate 102 H 01/03/22 16:42 Respiratory Rate 18 01/03/22 16:42 O2 Sat by Pulse Oximetry 97 01/03/22 16:42 Pain Scale Pain Intensity 0 - Physical Exam General Appearance: no apparent distress, alert, anxiety, obese Eye Exam: PERRL/EOMI, eyes nml inspection Ears, Nose, Throat Exam: normal ENT inspection, moist mucous membranes Neck Exam: normal inspection, non-tender, supple, full range of motion Respiratory Exam: normal breath sounds, lungs clear, airway intact, No chest tenderness, No respiratory distress Cardiovascular Exam: regular rate/rhythm, normal heart sounds, normal peripheral pulses Gastrointestinal/Abdomen Exam: soft, normal bowel sounds, No tenderness Rectal Exam: not done Back Exam: normal inspection, normal range of motion, No CVA tenderness, No vertebral tenderness Extremity Exam: normal inspection, normal range of motion, pelvis stable Neurologic Exam: alert, oriented x 3, cooperative, 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, normal mood/affect, nml cerebellar function, nml station & gait, sensation nml Skin Exam: normal color, warm, dry Lymphatic Exam: No adenopathy SpO2 Interpretation: normal SpO2: 97 - Course Nursing assessment & vital signs reviewed: Yes Ordered Tests: Active Orders 24 hr Category Date Time Status 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 Care 01/03/22 17:00 Active EKG-ER Only STAT Care 01/03/22 16:59 Active IV Insertion STAT Care 01/03/22 16:59 Active Orthostatic Vital Signs STAT Care 01/03/22 17:36 Active Re-Check Vital Signs STAT Care 01/03/22 16:59 Active CHEST WITH CONTRAST [CT] Stat Exams 01/03/22 17:54 Taken HEAD WITHOUT CONTRAST [CT] Stat Exams 01/03/22 17:03 Taken CBC W DIFF Stat Lab 01/03/22 16:35 Completed CMP Stat Lab 01/03/22 16:35 Completed D-DIMER QUANTITATIVE Stat Lab 01/03/22 16:35 Completed MAGNESIUM Stat Lab 01/03/22 16:35 Completed NT PRO BNP Stat Lab 01/03/22 16:35 Completed PROTIME WITH INR Stat Lab 01/03/22 16:35 Completed TROPONIN Q4H Lab 01/03/22 16:35 Completed TROPONIN Q4H Lab 01/03/22 21:00 Ordered TROPONIN Q4H Lab 01/04/22 01:00 Ordered UA W/RFX CULTURE Stat Lab 01/03/22 17:36 Completed Medication Summary Discontinued Medications Generic Name Dose Route Start Last Admin Trade Name Wilfredoq PRN Reason Stop Dose Admin Sodium Chloride 500 mls @ 500 mls/hr 01/03/22 17:54 01/03/22 19:03 Sodium Chloride 0.9% 500 Ml IV 01/03/22 18:53 Infused .Q1H ONE Infusion Sodium Chloride Confirm 01/03/22 18:01 Sodium Chloride 0.9% 500 Ml Administered 01/03/22 18:02 Dose 500 mls @ ud IV .STK-MED ONE Metoprolol Tartrate 5 mg 01/03/22 16:59 01/03/22 18:47 Metoprolol Tartrate 5 Mg/5 Ml Vial IV 01/03/22 17:00 Not Given STAT ONE Lab/Rad Data: Laboratory Result Diagrams 01/03/22 16:35 01/03/22 16:35 Laboratory Results 01/03/22 01/03/22 01/03/22 Range/Units 17:51 17:36 16:35 WBC (4.0-10.5) x10^3/uL RBC (4.1-5.6) x10^6/uL Hgb (12.5-18.0) g/dL Hct (42-50) % MCV (78-100) fL MCH (26-32) pg MCHC (32-36) g/dL RDW (11.5-14.0) % Plt Count (150-450) x10^3/uL MPV (7.5-11.0) fL Gran % (36.0-66.0) % Immature Gran % (Auto) (0.00-0.4) % Nucleat RBC Rel Count (0.00-0.1) % Eos # (Auto) (0-0.5) x10^3/uL Immature Gran # (Auto) (0.00-0.03) x10^3u/L Absolute Lymphs (auto) (1.0-4.6) x10^3/uL Absolute Monos (auto) (0.0-1.3) x10^3/uL Absolute Nucleated RBC (0.00-0.01) x10^3u/L Lymphocytes % (24.0-44.0) % Monocytes % (0.0-12.0) % Eosinophils % (0.00-5.0) % Basophils % (0.0-0.4) % Absolute Granulocytes (1.4-6.9) x10^3/uL Basophils # (0-0.4) x10^3/uL PT (9.4-12.5) SECONDS INR (0.8-3.0) D-Dimer (0.0-0.50) mg/L Sodium (137-145) mmol/L Potassium (3.5-5.1) mmol/L Chloride (98-107) mmol/L Carbon Dioxide (22-30) mmol/L Anion Gap (5-15) MEQ/L BUN (9-20) mg/dL Creatinine (0.66-1.25) mg/dL Estimated GFR ML/MIN Glucose (74-106) mg/dL Calcium (8.4-10.2) mg/dL Magnesium (1.6-2.3) mg/dL Total Bilirubin (0.2-1.3) mg/dL AST (17-59) U/L ALT (0-50) U/L Alkaline Phosphatase (38-126) U/L Troponin I 0.013 (0.000-0.034) ng/mL NT-Pro-B Natriuret Pep (0-900) pg/mL Serum Total Protein (6.3-8.2) g/dL Albumin (3.5-5.0) g/dL Urinalys Dipstick Clnc MAIN LAB Urine Color YELLOW (YELLOW) Urine Appearance CLEAR (CLEAR) Urine pH 5.5 (5-6) Ur Specific Sayre 1.020 (1.005-1.025) POC Urine Protein Conf 100 (Negative) Urine Ketones NEGATIVE (NEGATIVE) Urine Nitrite NEGATIVE (NEGATIVE) Urine Bilirubin NEGATIVE (NEGATIVE) Urine Urobilinogen 0.2 (0-1) mg/dL Urine Leukocytes NEGATIVE (NEGATIVE) Urine WBC (Auto) 0-2 (0-5) /HPF Urine RBC (Auto) NONE (0-2) /HPF U Epithel Cells (Auto) NONE (FEW) /HPF Urine Bacteria (Auto) RARE (NEGATIVE) /HPF Urine RBC TRACE-INTACT (0-5) Ralph/ul Urine Mucus (Auto) SLIGHT (NEGATIVE) /HPF Ur Culture Indicated? NO Urine Glucose 100 (NEGATIVE) mg/dL Influenza Type A Ag NEGATIVE (NEGATIVE) Influenza Type B Ag NEGATIVE (NEGATIVE) RSV (PCR) NEGATIVE (Negative) SARS-CoV-2 (PCR) NEGATIVE (NEGATIVE) 01/03/22 01/03/22 01/03/22 Range/Units 16:35 16:35 16:35 WBC 7.0 (4.0-10.5) x10^3/uL RBC 4.74 (4.1-5.6) x10^6/uL Hgb 13.2 (12.5-18.0) g/dL Hct 40.6 L (42-50) % MCV 85.7 (78-100) fL MCH 27.8 (26-32) pg MCHC 32.5 (32-36) g/dL RDW 13.5 (11.5-14.0) % Plt Count 232 (150-450) x10^3/uL MPV 10.1 (7.5-11.0) fL Gran % 68.3 H (36.0-66.0) % Immature Gran % (Auto) 1.0 H (0.00-0.4) % Nucleat RBC Rel Count 0.0 (0.00-0.1) % Eos # (Auto) 0.40 (0-0.5) x10^3/uL Immature Gran # (Auto) 0.07 H (0.00-0.03) x10^3u/L Absolute Lymphs (auto) 1.19 (1.0-4.6) x10^3/uL Absolute Monos (auto) 0.53 (0.0-1.3) x10^3/uL Absolute Nucleated RBC 0.00 (0.00-0.01) x10^3u/L Lymphocytes % 17.0 L (24.0-44.0) % Monocytes % 7.6 (0.0-12.0) % Eosinophils % 5.7 H (0.00-5.0) % Basophils % 0.4 (0.0-0.4) % Absolute Granulocytes 4.78 (1.4-6.9) x10^3/uL Basophils # 0.03 (0-0.4) x10^3/uL PT 10.3 (9.4-12.5) SECONDS INR 0.97 (0.8-3.0) D-Dimer 0.85 H* (0.0-0.50) mg/L Sodium 135 L (137-145) mmol/L Potassium 4.0 (3.5-5.1) mmol/L Chloride 102 (98-107) mmol/L Carbon Dioxide 24 (22-30) mmol/L Anion Gap 13.7 (5-15) MEQ/L BUN 34 H (9-20) mg/dL Creatinine 1.19 (0.66-1.25) mg/dL Estimated GFR > 60.0 ML/MIN Glucose 259 H (74-106) mg/dL Calcium 9.8 (8.4-10.2) mg/dL Magnesium 1.7 (1.6-2.3) mg/dL Total Bilirubin 0.50 (0.2-1.3) mg/dL AST 21 (17-59) U/L ALT 21 (0-50) U/L Alkaline Phosphatase 70 (38-126) U/L Troponin I (0.000-0.034) ng/mL NT-Pro-B Natriuret Pep 35.6 (0-900) pg/mL Serum Total Protein 7.5 (6.3-8.2) g/dL Albumin 4.4 (3.5-5.0) g/dL Urinalys Dipstick Clnc Urine Color (YELLOW) Urine Appearance (CLEAR) Urine pH (5-6) Ur Specific Sayre (1.005-1.025) POC Urine Protein Conf (Negative) Urine Ketones (NEGATIVE) Urine Nitrite (NEGATIVE) Urine Bilirubin (NEGATIVE) Urine Urobilinogen (0-1) mg/dL Urine Leukocytes (NEGATIVE) Urine WBC (Auto) (0-5) /HPF Urine RBC (Auto) (0-2) /HPF U Epithel Cells (Auto) (FEW) /HPF Urine Bacteria (Auto) (NEGATIVE) /HPF Urine RBC (0-5) Ralph/ul Urine Mucus (Auto) (NEGATIVE) /HPF Ur Culture Indicated? Urine Glucose (NEGATIVE) mg/dL Influenza Type A Ag (NEGATIVE) Influenza Type B Ag (NEGATIVE) RSV (PCR) (Negative) SARS-CoV-2 (PCR) (NEGATIVE) - Progress Progress: improved Progress Note: 01/03/22 19:39 CT scan of head without contrast shows no acute intracranial abnormality. CTA of chest shows no obvious central pulmonary embolus. There is suboptimal contrast opacification. There are a few bilateral lower indeterminate noncalcified nodules. The results of this CAT scan were discussed with the patient. Counseled pt/family regarding: lab results, diagnosis, need for follow-up, rad results - Departure Departure Disposition: Home Clinical Impression: Weakness, Hyperglycemia Condition: Stable Critical Care Time: No Referrals: PASCALE GROVES MD [Primary Care Provider] - Follow up/PCP as directed Additional Instructions: Drink plenty of fluids. Continue your blood pressure medication and other medication as prescribed. Monitor your blood sugar closely. Follow-up with your prescribing doctor tomorrow to make arrangements for follow-up appointment for further evaluation management. Keep a daily log, morning noon and night, of your blood pressure readings and take these readings to your next appointment.
[2022-01-03] MEDS ORDERED: LOPRESSOR INJECTION IV ONE (16:59)
[2022-01-03 17:28] LABS: Absolute Neutrophil Ct (ANC) 4.78 x10^3/uL (1.4-6.9); Basophil (Absolute #) 0.03 x10^3/uL (0-0.4); Eosinophil % 5.7 % (0.00-5.0); Hematocrit 40.6 % (42-50); Hemoglobin 13.2 g/dL (12.5-18.0); Lymphocyte (Absolute #) 1.19 x10^3/uL (1.0-4.6); Mean Cell Volume 85.7 fL (78-100); Mean Corpuscular Hemoglobin 27.8 pg (26-32); Mean Corpuscular Hgb Concent. 32.5 g/dL (32-36); Mean Platelet Volume 10.1 fL (7.5-11.0); Monocyte (Absolute #) 0.53 x10^3/uL (0.0-1.3); Monocytes % 7.6 % (0.0-12.0); Neutrophil % 68.3 % (36.0-66.0); Platelet Count 232 x10^3/uL (150-450); Red Blood Count 4.74 x10^6/uL (4.1-5.6); Red Cell Distribution Width 13.5 % (11.5-14.0)
[2022-01-03 17:42] LABS: ALBUMIN 4.4 g/dL (3.5-5.0); ALKALINE PHOSPHATASE 70 U/L (38-126); ANION GAP 13.7 MEQ/L (5-15); BLOOD UREA NITROGEN 34 mg/dL (9-20); CHLORIDE 102 mmol/L (98-107); Calcium 9.8 mg/dL (8.4-10.2); Carbon Dioxide 24 mmol/L (22-30); Creatinine 1 1.19 mg/dL (0.66-1.25); EST GLOMERULAR FILTRATION RATE > 60.0 ML/MIN; Glucose 259 mg/dL (74-106); MAGNESIUM 1.7 mg/dL (1.6-2.3); NT PRO BNP 35.6 pg/mL (0-900); SGOT/AST 21 U/L (17-59); SGPT/ALT 21 U/L (0-50); SODIUM 135 mmol/L (137-145); Total Protein 7.5 g/dL (6.3-8.2)
[2022-01-03 17:44] LABS: INR 0.97 (0.8-3.0); PROTIME 10.3 SECONDS (9.4-12.5)
[2022-01-03 17:48] LABS: Bacteria RARE /HPF (NEGATIVE); Mucus SLIGHT /HPF (NEGATIVE); WBC 0-2 /HPF (0-5)
[2022-01-03 17:49] LABS: D-DIMER QUANTITATIVE 0.85 mg/L (0.0-0.50)
[2022-01-03 17:49] LABS: Appearance CLEAR (CLEAR); Bilirubin NEGATIVE (NEGATIVE); Dipstick done @ ? MAIN LAB; Glucose 100 mg/dL (NEGATIVE); Ketones NEGATIVE (NEGATIVE); Nitrite NEGATIVE (NEGATIVE); Ph 5.5 (5-6); Protein,Urine Dip 100 (Negative); RBC TRACE-INTACT Ery/ul (0-5); Urobilinogen 0.2 mg/dL (0-1)
[2022-01-03 17:50] LABS: Urine Cultured Indicated? NO
[2022-01-03] MEDS ORDERED: Sodium Chloride 0.9% 500 ML 500 ML IV ONE ×2 (17:54→18:01)
[2022-01-03 18:29] LABS: INFLUENZA A NEGATIVE (NEGATIVE); INFLUENZA B NEGATIVE (NEGATIVE); RESPIRATORY SYNCTIAL VIRUS NEGATIVE (Negative); SARS-CoV-2 Xpert Express NEGATIVE (NEGATIVE)
[2022-01-03 19:27] VITALS: PULSE 96
[2022-01-03 19:52] VITALS: BP 165/95; O2SAT 99
--- NOTE | 2022-01-04 08:45 | XRAY ---
Indication: Short of breath. Elevated d-dimer. History pulmonary embolus. Multiple contiguous axial images obtained through the chest using 100 cc Isovue 370 contrast and PE protocol. Comparison: None There is suboptimal opacification of the pulmonary arteries limiting evaluation for pulmonary embolus. No obvious pulmonary embolus. Heart not enlarged. Aorta is normal in course and caliber. 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 Tiny subcarinal and right perihilar calcified nodes. No pathologic mediastinal/hilar lymphadenopathy. Examination of the lung parenchyma demonstrates a few bilateral mid to lower lung indeterminant noncalcified micronodules, largest 6 mm right posterior gutter. Tiny 3 mm left lower lobe calcified granuloma. No infiltrate, effusion, or pneumothorax. Bony thorax intact with mild degenerative changes throughout the spine. Limited upper abdomen demonstrates fatty liver and small 1 cm bilateral adrenal adenomas. Impression: 1. Pulmonary embolus evaluation limited by suboptimal contrast opacification. No obvious pulmonary embolus. 2. Indeterminant bilateral noncalcified micronodules, too small for PET/CT. Outside comparison studies recommended if available. If not, follow-up per Fleischner guidelines recommended. 3. No acute cardiopulmonary abnormalities. 4. Incidental fatty liver, bilateral adrenal adenomas, and old granulomatous disease.
--- NOTE | 2022-01-04 10:09 | XRAY ---
Indication: Dizziness. Elevated blood pressure. Multiple contiguous axial images obtained through the head without contrast. Comparison: December 17, 2018 Again age-appropriate global atrophy and a few benign-appearing calcifications in both basal ganglia and left parietal lobe. No acute intracranial hemorrhage, abnormal extra-axial fluid collection, or mass effect. Fourth ventricle is midline without hydrocephalus. Crockett-white matter differentiation preserved. Bony calvarium intact. Visualized paranasal sinuses and mastoid air cells are clear. Impression: Continued negative CT head without contrast exam.
== END 2022-01-03 20:05 | disposition home or self-care (01) ==
LOC: ED 16:15
DX: R53.1 Weakness (principal); E11.65 Type 2 diabetes mellitus with hyperglycemia; R11.0 Nausea; E11.42 Type 2 diabetes mellitus with diabetic polyneuropathy; I10 Essential (primary) hypertension; E78.5 Hyperlipidemia, unspecified; Z79.84 Long term (current) use of oral hypoglycemic drugs; Z79.899 Other long term (current) drug therapy; Z20.828 Contact with and (suspected) exposure to other viral communicable diseases; Z86.711 Personal history of pulmonary embolism
CPT/HCPCS: 0241U; 36000; 36415; 70450; 71260; 80053; 81015; 83735; 83880; 84484; 85025; 85379; 85610; 93005; 93041; 96360; 99284

== ENCOUNTER 2022-02-08 06:07 | Day surgery (SDC) | payer MEDICARE ==
[2022-02-08] MEDS ORDERED: Epinephrine Preservative Free 1 MG/ML IJ ONE (06:08)
[2022-02-08] MEDS ORDERED: Lactated Ringers 1,000 ML IV ONE (06:20)
[2022-02-08] MEDS ORDERED: Ak-Dilate OPHTHALMIC*** 1.065 ML, Cyclogyl 1% OPHTH SOL 1.065 ML, GATIFLOXACIN 0.5% OPH... OP ONE ×4 (06:30)
[2022-02-08] MEDS ORDERED: cefUROXime sodium 0.005 GM in Sodium Chloride Flush 30 ML*** 0.5 ML IJ ONE (06:30)
[2022-02-08] MEDS ORDERED: TETRACAINE 0.5% STERI-UNIT SOL OP ONE (06:30)
[2022-02-08] MEDS ORDERED: BETADINE 5% OPHTHALMIC 30 ML OP ONE (06:30)
[2022-02-08] MEDS ORDERED: NON-FORMULARY ITEM OP ONE (06:30)
[2022-02-08] MEDS ORDERED: Lactated Ringers 1,000 ML IV SCH (06:30)
[2022-02-08] MEDS: TETRACAINE 0.5% STERI-UNIT SOL OP ONE ×2 (07:25→07:53)
[2022-02-08] MEDS ORDERED: DIPRIVAN 200 MG/20 ML IV ONE ×2 (08:08→08:27)
[2022-02-08] MEDS ORDERED: SUBLIMAZE 100 MCG/2 ML ONE (08:24)
[2022-02-08] MEDS ORDERED: Zofran 4 MG/2 ML VIAL IV PRN (08:30)
[2022-02-08 09:06] VITALS: BP 91/72; PULSE 93; O2SAT 94
== END 2022-02-08 08:55 | disposition home or self-care (01) ==
LOC: SDC 06:07
PROVIDERS: ATTEND Ophthalmology
DX: H25.812 Combined forms of age-related cataract, left eye (principal); E11.9 Type 2 diabetes mellitus without complications
CPT/HCPCS: 82947; 99100; C1780; J0171; J2704; J3010; A9270-GY

== ENCOUNTER 2022-03-13 04:59 | Emergency (ER) | payer MEDICARE ==
[2022-03-13 06:34] LABS: INFLUENZA A NEGATIVE (NEGATIVE); INFLUENZA B NEGATIVE (NEGATIVE); RESPIRATORY SYNCTIAL VIRUS NEGATIVE (Negative)
[2022-03-13 06:37] LABS: SARS-CoV-2 Xpert Express POSITIVE (NEGATIVE)
[2022-03-13 06:40] LABS: Absolute Neutrophil Ct (ANC) 7.82 x10^3/uL (1.4-6.9); Basophil (Absolute #) 0.02 x10^3/uL (0-0.4); Hematocrit 40.1 % (42-50); Hemoglobin 12.8 g/dL (12.5-18.0); Lymphocyte (Absolute #) 0.75 x10^3/uL (1.0-4.6); Lymphocytes % 7.7 % (24.0-44.0); Mean Cell Volume 86.2 fL (78-100); Mean Corpuscular Hemoglobin 27.5 pg (26-32); Mean Corpuscular Hgb Concent. 31.9 g/dL (32-36); Mean Platelet Volume 8.8 fL (7.5-11.0); Monocyte (Absolute #) 1.03 x10^3/uL (0.0-1.3); Monocytes % 10.5 % (0.0-12.0); Neutrophil % 79.9 % (36.0-66.0); Platelet Count 187 x10^3/uL (150-450); Red Blood Count 4.65 x10^6/uL (4.1-5.6); Red Cell Distribution Width 14.2 % (11.5-14.0); White Blood Count 9.8 x10^3/uL (4.0-10.5)
--- NOTE | 2022-03-13 06:41 | ERPHSYRPT ---
- History of Present Illness Source: patient Exam Limitations: no limitations Patient Subjective Stated Complaint: pt states "I have this congestion and sorethroat." Triage Nursing Assessment: pt ambulated into the er; pt is axo x4; c/o sorethroat; pt denies pain; tonsils are swollen, no excudate present; mucus membranes pink and moist; dry hacking cough present; skin is warm and clammy; afebrile; tachycardic Timing/Duration: yesterday, gradual onset, worse Cough Quality/Degree: moderate, productive cough Possible Cause: unknown cause Modifying Factors: Improves With: rest. Worsens With: coughing, exertion Associated Symptoms: chills, chest pain/soreness, cough, dizziness, headache, muscle aches, nasal congestion, nasal drainage, shortness of breath, sinus infection, sore throat, wheezing Hx Tetanus, Diphtheria Vaccination/Date Given: Yes Hx Influenza Vaccination/Date Given: Yes Hx Pneumococcal Vaccination/Date Given: Yes Immunizations Up to Date: Yes <BLAYNE SALINAS - Last Filed: 03/13/22 06:39> <BUBBA CHAPA - Last Filed: 03/13/22 08:53> - History of Present Illness Time Seen by Provider: 03/13/22 06:18 Physician History: 76-year-old male presented to ER with chief complaint of cough congestion and sore throat since yesterday with progressive worsening. Patient reports coughing up take yellow to green sputum moderate in amount with subjective feeling of fever and chills. Denies any chest pain but feels short winded with activities. (BLAYNE SALINAS) Allergies/Adverse Reactions: silk Allergy (Severe, Verified 03/13/22 05:05) Swelling 1978 stiches caused swelling Sulfa (Sulfonamide Antibiotics) [Sulfa(Sulfonamide Antibiotics)] Allergy (Mild, Verified 03/13/22 05:05) Difficulty Breathing procaine HCl [From Novocain] Adverse Reaction (Mild, Verified 03/13/22 05:05) Rapid Heart Beat steroids Adverse Reaction (Severe, Uncoded 03/13/22 05:05) GI bleeding VARIFIED Home Medications: Carvedilol [Coreg ] 6.25 mg PO BID 03/29/12 [History] Fluoxetine HCl 20 mg [Prozac 20 MG] 20 mg PO DAILY 02/15/13 [History] Clonidine HCl 0.1 mg [Clonidine 0.1 mg Tablet] 0.2 mg PO BID 08/25/15 [History] Ferrous Sulfate 325 mg [Feosol 325 mg] 1 tab PO 1700 08/25/15 [History] Metformin HCl 500 mg [Glucophage 500 MG] 1,000 mg PO 0800,1700 05/13/16 [History] Montelukast Sodium [Singulair] 10 mg PO DAILY 05/13/16 [History] Albuterol Common Canister [Ventolin Common Canister] 2 puffs PO Q12H PRN PRN 12/04/18 [History] Albuterol 2.5 mg/3 ml Neb [Proventil 2.5 mg/3 ml Neb] 1 neb IH Q4HPRN PRN 04/24/19 [History] Tadalafil [Cialis] 10 mg PO DAILY PRN PRN 02/01/22 [History] Dulaglutide [Trulicity] 0.75 ml PO WEEKLY 02/08/22 [History] Lisinopril/Hydrochlorothiazide [Lisinopril-Hctz 20-12.5 mg Tab] 12.5 - 20 mg PO DAILY 02/08/22 [History] Diclofenac Sodium 200 gm TP Q12H PRN 03/13/22 [History] Travel Risk - International Travel Have you traveled outside of the country in past 3 weeks: No - Coronavirus Screening Are you exhibiting any of the following symptoms?: Yes Symptoms: Cough: New Onset Close contact with a COVID-19 positive Pt in past 14-21 Days: No - Vaccine Status Have you recieved a Covid-19 vaccination: Yes Manager Transmission: Pfizer - Vaccination Dates Date of 2cond Vaccination (if applicable): 2020 <BLAYNE SALINAS - Last Filed: 03/13/22 06:39> - Review of Systems Constitutional: Chills, Fatigue, Weakness Eyes: No Symptoms Ears, Nose, & Throat: Nose Congestion, Throat Pain, Throat Swelling Respiratory: Cough, Dyspnea Cardiac: No Symptoms Abdominal/Gastrointestinal: No Symptoms Genitourinary Symptoms: No Symptoms Musculoskeletal: Myalgias Skin: No Symptoms Neurological: Headache Psychological: No Symptoms Endocrine: No Symptoms Hematologic/Lymphatic: No Symptoms Immunological/Allergic: No Symptoms <RITABLAYNE - Last Filed: 03/13/22 06:39> - Past Medical History Pertinent Past Medical History: Yes Neurological History: Peripheral Neuropathy ENT History: Macular Degeneration Cardiac History: Hypertension Respiratory History: Asthma, Pneumonia, Other Endocrine Medical History: Diabetes Type II Musculoskeletal History: Arthritis, Osteoarthritis GI Medical History: GERD, GI Bleed, Hernia History: Other Psycho-Social History: Anxiety, Depression Male Reproductive Disorders: Prostate Problems Other Medical History: HX MM. STRAINS,hayfever,anemia. 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 - Past Surgical History Past Surgical History: Yes Neuro Surgical History: No Pertinent History Cardiac: No Pertinent History Respiratory: No Pertinent History Gastrointestinal: Hernia Repair Genitourinary: No Pertinent History Musculoskeletal: No Pertinent History Male Surgical History: Vasectomy Other Surgical History: repair to penis d/t injury several years ago vasectomy times 2 - Social History Smoking Status: Never smoker Exposure to second hand smoke: No Drug Use: none Patient Lives Alone: Yes <RITABLAYNE - Last Filed: 03/13/22 06:39> - Physical Exam General Appearance: no apparent distress, alert Eye Exam: PERRL/EOMI Ears, Nose, Throat Exam: TMs normal, pharyngeal erythema Neck Exam: normal inspection, non-tender, supple, full range of motion Respiratory Exam: normal breath sounds, lungs clear Cardiovascular Exam: normal heart sounds, tachycardia Gastrointestinal/Abdomen Exam: soft, normal bowel sounds, No tenderness Back Exam: normal inspection, normal range of motion Extremity Exam: normal inspection, normal range of motion Neurologic Exam: alert, oriented x 3, cooperative Skin Exam: normal color SpO2 Interpretation: normal SpO2: 95 O2 Delivery: Room Air <BLAYNE SALINAS - Last Filed: 03/13/22 06:39> - Nursing Vital Signs Nursing Vital Signs: Initial Vital Signs Temperature 97.6 F 03/13/22 05:06 Pulse Rate 115 H 03/13/22 05:06 Respiratory Rate 18 03/13/22 05:06 Blood Pressure 139/79 03/13/22 05:06 O2 Sat by Pulse Oximetry 95 03/13/22 05:06 Pain Scale Pain Intensity 0 - Radiology Exams Chest X-ray Interpretation: Interpreted by me (CXR NAD) <BUBBA CHAPA - Last Filed: 03/13/22 08:53> Ordered Tests: Active Orders 24 hr Category Date Time Status CHEST 1 VIEW (PORTABLE) Stat Exams 03/13/22 06:23 Completed CBC W DIFF Stat Lab 03/13/22 06:36 Completed CMP Stat Lab 03/13/22 06:36 Completed Lactic Acid Stat Lab 03/13/22 06:23 Completed Lactic Acid Stat Lab 03/13/22 08:42 Completed MAGNESIUM Stat Lab 03/13/22 06:36 Completed NT PRO BNP Stat Lab 03/13/22 06:36 Completed PROCALCITONIN Stat Lab 03/13/22 06:36 Completed TROPONIN Q4H Lab 03/13/22 06:36 Completed TROPONIN Q4H Lab 03/13/22 10:30 Ordered TROPONIN Q4H Lab 03/13/22 14:30 Ordered Medication Summary Discontinued Medications Generic Name Dose Route Start Last Admin Trade Name Freq PRN Reason Stop Dose Admin Sodium Chloride 1,000 mls @ 999 mls/hr 03/13/22 07:17 03/13/22 07:18 Sodium Chloride 0.9% 1000 Ml IV 03/13/22 08:17 999 mls/hr .Q1H1M STA Administration Sodium Chloride Confirm 03/13/22 07:18 Sodium Chloride 0.9% 1000 Ml Administered 03/13/22 07:19 Dose 1,000 mls @ ud .ROUTE .STK-MED ONE Lab/Rad Data: Laboratory Result Diagrams 03/13/22 06:36 03/13/22 06:36 Laboratory Results 03/13/22 03/13/22 03/13/22 Range/Units 08:42 06:36 06:36 WBC (4.0-10.5) x10^3/uL RBC (4.1-5.6) x10^6/uL Hgb (12.5-18.0) g/dL Hct (42-50) % MCV (78-100) fL MCH (26-32) pg MCHC (32-36) g/dL RDW (11.5-14.0) % Plt Count (150-450) x10^3/uL MPV (7.5-11.0) fL Gran % (36.0-66.0) % Immature Gran % (Auto) (0.00-0.4) % Nucleat RBC Rel Count (0.00-0.1) % Eos # (Auto) (0-0.5) x10^3/uL Immature Gran # (Auto) (0.00-0.03) x10^3u/L Absolute Lymphs (auto) (1.0-4.6) x10^3/uL Absolute Monos (auto) (0.0-1.3) x10^3/uL Absolute Nucleated RBC (0.00-0.01) x10^3u/L Lymphocytes % (24.0-44.0) % Monocytes % (0.0-12.0) % Eosinophils % (0.00-5.0) % Basophils % (0.0-0.4) % Absolute Granulocytes (1.4-6.9) x10^3/uL Basophils # (0-0.4) x10^3/uL Sodium (137-145) mmol/L Potassium (3.5-5.1) mmol/L Chloride (98-107) mmol/L Carbon Dioxide (22-30) mmol/L Anion Gap (5-15) MEQ/L BUN (9-20) mg/dL Creatinine (0.66-1.25) mg/dL Estimated GFR ML/MIN Glucose (74-106) mg/dL Lactic Acid 1.2 (0.4-2.0) Calcium (8.4-10.2) mg/dL Magnesium (1.6-2.3) mg/dL Total Bilirubin (0.2-1.3) mg/dL AST (17-59) U/L ALT (0-50) U/L Alkaline Phosphatase (38-126) U/L Troponin I < 0.012 (0.000-0.034) ng/mL NT-Pro-B Natriuret Pep (0-900) pg/mL Serum Total Protein (6.3-8.2) g/dL Albumin (3.5-5.0) g/dL Procalcitonin 0.387 H (0.030-0.080) ng/mL Influenza Type A Ag (NEGATIVE) Influenza Type B Ag (NEGATIVE) RSV (PCR) (Negative) SARS-CoV-2 (PCR) (NEGATIVE) Group A Strep Antibody (NEGATIVE) 03/13/22 03/13/22 03/13/22 Range/Units 06:36 06:36 06:23 WBC 9.8 (4.0-10.5) x10^3/uL RBC 4.65 (4.1-5.6) x10^6/uL Hgb 12.8 (12.5-18.0) g/dL Hct 40.1 L (42-50) % MCV 86.2 (78-100) fL MCH 27.5 (26-32) pg MCHC 31.9 L (32-36) g/dL RDW 14.2 H (11.5-14.0) % Plt Count 187 (150-450) x10^3/uL MPV 8.8 (7.5-11.0) fL Gran % 79.9 H (36.0-66.0) % Immature Gran % (Auto) 0.7 H (0.00-0.4) % Nucleat RBC Rel Count 0.0 (0.00-0.1) % Eos # (Auto) 0.10 (0-0.5) x10^3/uL Immature Gran # (Auto) 0.07 H (0.00-0.03) x10^3u/L Absolute Lymphs (auto) 0.75 L (1.0-4.6) x10^3/uL Absolute Monos (auto) 1.03 (0.0-1.3) x10^3/uL Absolute Nucleated RBC 0.00 (0.00-0.01) x10^3u/L Lymphocytes % 7.7 L (24.0-44.0) % Monocytes % 10.5 (0.0-12.0) % Eosinophils % 1.0 (0.00-5.0) % Basophils % 0.2 (0.0-0.4) % Absolute Granulocytes 7.82 H (1.4-6.9) x10^3/uL Basophils # 0.02 (0-0.4) x10^3/uL Sodium 131 L (137-145) mmol/L Potassium 4.6 (3.5-5.1) mmol/L Chloride 99 (98-107) mmol/L Carbon Dioxide 20 L (22-30) mmol/L Anion Gap 16.5 H (5-15) MEQ/L BUN 28 H (9-20) mg/dL Creatinine 1.73 H (0.66-1.25) mg/dL Estimated GFR 41.2 ML/MIN Glucose 183 H (74-106) mg/dL Lactic Acid 2.4 H (0.4-2.0) Calcium 9.4 (8.4-10.2) mg/dL Magnesium 1.5 L (1.6-2.3) mg/dL Total Bilirubin 0.60 (0.2-1.3) mg/dL AST 19 (17-59) U/L ALT 21 (0-50) U/L Alkaline Phosphatase 63 (38-126) U/L Troponin I (0.000-0.034) ng/mL NT-Pro-B Natriuret Pep 76.4 (0-900) pg/mL Serum Total Protein 7.4 (6.3-8.2) g/dL Albumin 4.4 (3.5-5.0) g/dL Procalcitonin (0.030-0.080) ng/mL Influenza Type A Ag (NEGATIVE) Influenza Type B Ag (NEGATIVE) RSV (PCR) (Negative) SARS-CoV-2 (PCR) (NEGATIVE) Group A Strep Antibody (NEGATIVE) 03/13/22 03/13/22 Range/Units 05:50 05:50 WBC (4.0-10.5) x10^3/uL RBC (4.1-5.6) x10^6/uL Hgb (12.5-18.0) g/dL Hct (42-50) % MCV (78-100) fL MCH (26-32) pg MCHC (32-36) g/dL RDW (11.5-14.0) % Plt Count (150-450) x10^3/uL MPV (7.5-11.0) fL Gran % (36.0-66.0) % Immature Gran % (Auto) (0.00-0.4) % Nucleat RBC Rel Count (0.00-0.1) % Eos # (Auto) (0-0.5) x10^3/uL Immature Gran # (Auto) (0.00-0.03) x10^3u/L Absolute Lymphs (auto) (1.0-4.6) x10^3/uL Absolute Monos (auto) (0.0-1.3) x10^3/uL Absolute Nucleated RBC (0.00-0.01) x10^3u/L Lymphocytes % (24.0-44.0) % Monocytes % (0.0-12.0) % Eosinophils % (0.00-5.0) % Basophils % (0.0-0.4) % Absolute Granulocytes (1.4-6.9) x10^3/uL Basophils # (0-0.4) x10^3/uL Sodium (137-145) mmol/L Potassium (3.5-5.1) mmol/L Chloride (98-107) mmol/L Carbon Dioxide (22-30) mmol/L Anion Gap (5-15) MEQ/L BUN (9-20) mg/dL Creatinine (0.66-1.25) mg/dL Estimated GFR ML/MIN Glucose (74-106) mg/dL Lactic Acid (0.4-2.0) Calcium (8.4-10.2) mg/dL Magnesium (1.6-2.3) mg/dL Total Bilirubin (0.2-1.3) mg/dL AST (17-59) U/L ALT (0-50) U/L Alkaline Phosphatase (38-126) U/L Troponin I (0.000-0.034) ng/mL NT-Pro-B Natriuret Pep (0-900) pg/mL Serum Total Protein (6.3-8.2) g/dL Albumin (3.5-5.0) g/dL Procalcitonin (0.030-0.080) ng/mL Influenza Type A Ag NEGATIVE (NEGATIVE) Influenza Type B Ag NEGATIVE (NEGATIVE) RSV (PCR) NEGATIVE (Negative) SARS-CoV-2 (PCR) POSITIVE A (NEGATIVE) Group A Strep Antibody NOT DETECTED (NEGATIVE) - Progress Progress: improved Counseled pt/family regarding: lab results, diagnosis, need for follow-up, rad results <BUBBA CHAPA - Last Filed: 03/13/22 08:53> - Progress Progress Note: 03/13/22 08:53 1L NS bolus Lactate decreased to 1.2 (BUBBA CHAPA) <BLAYNE SALINAS - Last Filed: 03/13/22 06:39> - Departure Critical Care Time: No <BUBBA CHAPA - Last Filed: 03/13/22 08:53> - Departure Clinical Impression: COVID-19 Condition: Stable Referrals: PASCALE GROVES MD [Primary Care Provider] - Follow up/PCP as directed Instructions: Sore Throat, Adult (DC), COVID-19 (DC) Additional Instructions: Quarantine for 5 days Fluids Rest Follow up with your family MD in 2-3 days Get a pulse oximeter and monitor oxygen saturation 2-3 times a day Return to ER for persistent oxygen saturation less than 91% Prescriptions: Nirmatrelvir/Ritonavir [Paxlovid 150-100 mg Pack (Eua)] 1 each PO BID 5 Days #20
[2022-03-13] MEDS ORDERED: Sodium Chloride 0.9% 1000 ML 1,000 ML IV STA (07:17)
[2022-03-13] MEDS ORDERED: Sodium Chloride 0.9% 1000 ML 1,000 ML ONE (07:18)
[2022-03-13 07:28] VITALS: PULSE 105
[2022-03-13 07:32] LABS: ALBUMIN 4.4 g/dL (3.5-5.0); ANION GAP 16.5 MEQ/L (5-15); BILIRUBIN,TOTAL 0.6 mg/dL (0.2-1.3); Calcium 9.4 mg/dL (8.4-10.2); Creatinine 1 1.73 mg/dL (0.66-1.25); EST GLOMERULAR FILTRATION RATE 41.2 ML/MIN; MAGNESIUM 1.5 mg/dL (1.6-2.3); NT PRO BNP 76.4 pg/mL (0-900); Potassium 4.6 mmol/L (3.5-5.1); Total Protein 7.4 g/dL (6.3-8.2)
--- NOTE | 2022-03-13 08:25 | XRAY ---
Indication: Cough. Comparison: July 18, 2018 Portable chest again demonstrates minimal left base subsegmental atelectasis/scarring. Remaining heart and lungs unremarkable. Bony thorax intact again with mild degenerative changes and mild dextroscoliosis. No new/acute findings.
[2022-03-13 09:05] VITALS: BP 139/82; O2SAT 96
== END 2022-03-13 09:07 | disposition home or self-care (01) ==
LOC: ED 04:59
DX: U07.1 COVID-19 (principal); R05.1 Acute cough; R09.81 Nasal congestion; J02.9 Acute pharyngitis, unspecified; I10 Essential (primary) hypertension; E11.42 Type 2 diabetes mellitus with diabetic polyneuropathy; Z79.84 Long term (current) use of oral hypoglycemic drugs; Z79.85 Long-term (current) use of injectable non-insulin antidiabetic drugs; Z79.899 Other long term (current) drug therapy
CPT/HCPCS: 0241U; 36415; 71045; 80053; 83605; 83735; 83880; 84145; 84484; 85025; 87651; 96360; 99284

== ENCOUNTER 2022-06-14 06:40 | Day surgery (SDC) | payer MEDICARE ==
[2022-06-14] MEDS ORDERED: Epinephrine Preservative Free 1 MG/ML IJ ONE (06:41)
[2022-06-14] MEDS ORDERED: Lactated Ringers 1,000 ML IV SCH ×2 (07:00→07:30)
[2022-06-14] MEDS ORDERED: Lactated Ringers 1,000 ML IV ONE (07:13)
[2022-06-14] MEDS ORDERED: BETADINE 5% OPHTHALMIC 30 ML OP ONE (07:30)
[2022-06-14] MEDS ORDERED: TETRACAINE 0.5% STERI-UNIT SOL OP ONE ×2 (07:30)
[2022-06-14] MEDS ORDERED: Ak-Dilate OPHTHALMIC*** 1.065 ML, Cyclogyl 1% OPHTH SOL 1.065 ML, GATIFLOXACIN 0.5% OPH... OP ONE ×4 (07:30)
[2022-06-14] MEDS ORDERED: NON-FORMULARY ITEM OP ONE (07:30)
[2022-06-14] MEDS ORDERED: cefUROXime sodium 0.005 GM in Sodium Chloride Flush 30 ML*** 0.5 ML IJ ONE (07:30)
[2022-06-14] MEDS ORDERED: DIPRIVAN 200 MG/20 ML IV ONE (08:56)
[2022-06-14] MEDS ORDERED: Xylocaine-Mpf 2% 5 Ml Vial ONE (08:56)
[2022-06-14] MEDS ORDERED: Zofran 4 MG/2 ML VIAL IV PRN (09:00)
[2022-06-14 09:35] VITALS: O2SAT 18
[2022-06-14 09:37] VITALS: BP 131/84; PULSE 84
== END 2022-06-14 09:45 | disposition home or self-care (01) ==
LOC: SDC 06:40
PROVIDERS: ATTEND Ophthalmology
DX: H25.811 Combined forms of age-related cataract, right eye (principal); E11.9 Type 2 diabetes mellitus without complications
CPT/HCPCS: 82947; 99100; C1780; J0171; J2704; A9270-GY

== ENCOUNTER 2022-07-06 05:45 | Day surgery (SDC) | payer MEDICARE ==
[~2022-07-06 05:45] MED LIST: Ak-Dilate OPHTHALMIC*** 1.065 ML, Cyclogyl 1% OPHTH SOL 1.065 ML, GATIFLOXACIN 0.5% OPH... OP ONE; BETADINE 5% OPHTHALMIC 30 ML OP ONE; Lactated Ringers 1,000 ML IV SCH; NON-FORMULARY ITEM OP ONE; TETRACAINE 0.5% STERI-UNIT SOL OP ONE; Zofran 4 MG/2 ML VIAL IV PRN; cefUROXime sodium 0.005 GM in Sodium Chloride Flush 30 ML*** 0.5 ML IJ ONE
[2022-07-06] MEDS ORDERED: Lactated Ringers 1,000 ML IV ONE (06:30)
[2022-07-06] MEDS ORDERED: Lactated Ringers 1,000 ML IV SCH (07:00)
[2022-07-06] MEDS ORDERED: DIPRIVAN 200 MG/20 ML IV ONE ×2 (07:55→08:11)
[2022-07-06] MEDS ORDERED: Xylocaine-Mpf 2% 5 Ml Vial ONE (07:55)
[2022-07-06 09:00] VITALS: BP 129/77; PULSE 84; O2SAT 96
--- NOTE | 2022-07-06 14:40 | OP ---
SURGERY DATE/TIME: 07/06/2022 0759 PREOPERATIVE DIAGNOSIS: History of colon polyps. POSTOPERATIVE DIAGNOSIS: Ascending colon polyps x2. PROCEDURE: Colonoscopy. SURGEON: Rui Benjamin M.D. ANESTHESIA: MAC by Chemo Conte CRNA. ESTIMATED BLOOD LOSS: Minimal. SPECIMENS: A few hot forceps polypectomies from ascending colon polyps. DESCRIPTION OF PROCEDURE: After informed written consent was obtained, the patient was taken to the endoscopy suite. He was placed in left lateral decubitus position. Anesthesia was titrated to desired level of consciousness. Digital rectal exam showed normal sphincter tone and no internal lesions. The scope was inserted into the rectum and sequentially the entire colonic mucosa was traversed. The level of cecum was reached and verified with direct visualization of the ileocecal valve. Upon withdrawal careful mucosal inspection revealed no gross abnormalities other than a few very small sessile polyps in the ascending colon that were grasped with forceps, cauterized and removed in their entirety. Upon further withdrawal no obvious mucosal abnormalities were encountered. Retroflexion was performed prior to withdrawal and showed no internal lesions. The scope was removed. The patient was transferred to the recovery room in good condition.
== END 2022-07-06 09:09 | disposition home or self-care (01) ==
LOC: SDC 05:45
PROVIDERS: ATTEND Family Medicine
DX: Z09 Encounter for follow-up examination after completed treatment for conditions other than malignant neoplasm (principal); D12.2 Benign neoplasm of ascending colon; Z86.010 Personal history of colon polyps; E11.9 Type 2 diabetes mellitus without complications
CPT/HCPCS: 82947; 99100; J2704; A9270-GY

== ENCOUNTER 2025-01-20 05:37 | Day surgery (SDC) | payer MEDICARE ==
[2025-01-20] MEDS ORDERED: CEFAZOLIN SODIUM ONE (06:26)
[2025-01-20] MEDS: TYLENOL EXTRA STRENGTH 500 MG PO STA (06:44)
[2025-01-20] MEDS: Decadron 4 MG PO ONE (06:45)
[2025-01-20] MEDS: TRANEXAMIC 1,000 MG/100ML-NACL 1,000 MG/100 ML PIGGYBACK IV ONE (06:48)
[2025-01-20] MEDS ORDERED: TORAdol 30 mg Injection ONE (07:57)
[2025-01-20] MEDS ORDERED: ROCURONIUM BROMIDE IV ONE (07:57)
[2025-01-20] MEDS ORDERED: Zofran 4 MG/2 ML VIAL ONE (07:57)
[2025-01-20] MEDS ORDERED: BRIDION 200MG/2ML IV ONE (07:57)
[2025-01-20] MEDS ORDERED: Xylocaine-Mpf 2% 5 Ml Vial ONE (07:57)
[2025-01-20] MEDS ORDERED: propofoL IV ONE (07:57)
[2025-01-20] MEDS ORDERED: SUBLIMAZE 100 MCG/2 ML ONE ×2 (07:57→10:26)
--- NOTE | 2025-01-20 09:59 | XRAY ---
Indication: Postop exam. Comparison: July 22, 2024 AP right hip demonstrates new intact bipolar prosthesis with lateral postoperative soft tissue changes. Again incidental osteopenia. No other bony, articular, or soft tissue abnormalities.
[2025-01-20] MEDS ORDERED: Naropin 0.5% 30 ML VIAL ONE (10:07)
[2025-01-20] MEDS ORDERED: DILAUDID 0.5 MG/0.5 ML SYRINGE ONE ×4 (10:27→11:12)
--- NOTE | 2025-01-20 11:51 | XRAY ---
Indication: Follow up surgery. Comparison: Taken earlier in the day. Single AP left and right hip again demonstrates osteopenia and intact right total hip arthroplasty. New right hip cutaneous jeffrey. Left hip demonstrates moderate/advanced degenerative changes. No other abnormalities.
[2025-01-20] MEDS ORDERED: MORPHINE SULFATE 4 MG INJ IV PRN (13:51)
[2025-01-20] MEDS ORDERED: Zofran 4 MG/2 ML VIAL IV PRN (13:51)
[2025-01-20] MEDS ORDERED: Docusate Sodium 100 MG PO PRN (13:52)
[2025-01-20] MEDS: NORCO 7.5/325 MG TAB PO PRN (14:12)
[2025-01-20] MEDS ORDERED: PROVENTIL 2.5 MG/3 ML NEB IH PRN (15:14)
[2025-01-20] MEDS ORDERED: NON-FORMULARY ITEM (Semaglutide [Ozempic] 0.25 MG/0.368 ML Pen.Injctr) SQ SCH (15:15)
[2025-01-20] MEDS ORDERED: Ventolin Hfa MDI IH SCH (15:15)
[2025-01-20] MEDS ORDERED: Cyanocobalamin B-12 1000 MCG/ML IJ SCH (15:15)
[2025-01-20] MEDS ORDERED: Hydromorphone 1 mg/ml Injection IV PRN (15:38)
[2025-01-20] MEDS: Avodart 0.5 MG PO SCH ×3 (16:15→17:51)
[2025-01-20] MEDS ORDERED: VENTOLIN COMMON CANISTER IH PRN (16:16)
[2025-01-20] MEDS: Glucophage 500 MG PO SCH (16:20)
[2025-01-20] MEDS: Ocuvite Tablet PO SCH (16:41)
[2025-01-20] MEDS ORDERED: MEDICATION INTERVENTION MC SCH (17:15)
[2025-01-20] MEDS: FEOSOL 325 MG PO SCH (17:47)
[2025-01-20] MEDS: COREG 12.5 MG PO SCH (17:47)
[2025-01-20] MEDS: NORVASC 5 MG PO SCH (17:47)
[2025-01-20] MEDS: Flomax 0.4 MG PO SCH ×2 (17:47→17:52)
[2025-01-20] MEDS: Singulair 10 MG PO SCH ×2 (17:48→17:52)
[2025-01-20] MEDS: VENTOLIN COMMON CANISTER IH SCH (17:51)
[2025-01-20] MEDS: Prozac 20 MG PO SCH (17:52)
[2025-01-20] MEDS: OLOPATADINE 0.1% OP SCH (21:19)
[2025-01-20] MEDS ORDERED: COREG 12.5 MG PO SCH (22:00)
[2025-01-20] MEDS ORDERED: NORVASC 5 MG PO SCH (22:00)
[2025-01-20] MEDS ORDERED: Coreg PO SCH (22:00)
[2025-01-21] MEDS: Prozac 20 MG PO SCH (05:03)
[2025-01-21 06:19] VITALS: BP 139/59; TEMP 98.2
[2025-01-21 08:03] VITALS: PULSE 94; RESP 18; O2SAT 97
--- NOTE | 2025-01-21 08:20 | PCM.NOTE ---
Date and Time: 01/21/25816 Subjective Assessment: Sitting in chair. Pain controlled with medication. Objective Exam Objective Exam: right hip dressing C/D/I. NVI distally. Objective Data Vital Signs: Vital Signs - 24 hr Temp Pulse Resp BP Pulse Ox 01/21/25 08:02 94 H 18 97 01/21/25 06:19 98.2 F 96 H 16 139/59 96 01/21/25 03:00 97.8 F 93 H 18 114/66 96 01/20/25 23:00 97.8 F 94 H 18 119/63 97 01/20/25 19:32 102 H 16 97 01/20/25 19:00 98.5 F 100 H 18 104/57 94 L 01/20/25 16:01 96 H 16 95 01/20/25 14:45 96 H 124/66 100 01/20/25 14:10 96 01/20/25 13:45 93 H 140/73 99 01/20/25 12:45 88 131/69 100 01/20/25 12:32 88 16 96 01/20/25 12:15 85 134/64 97 01/20/25 12:04 98.1 F 80 22 136/86 98 01/20/25 11:47 98.1 F 80 22 138/86 98 01/20/25 11:45 86 128/59 97 01/20/25 11:30 79 138/83 98 Pain Assessment - Last Documented Pain Intensity [Right] 6 Pain Intensity 6 Pain Scale Used 0-10 Pain Scale Intake and Output: Intake & Output 01/19/25 01/20/25 01/21/25 01/22/25 06:59 06:59 06:59 06:59 Intake Total 1383 Output Total 500 Balance 883 Weight 96.3 kg 99.1 kg Lab Results: Lab Results-Last 24 Hours 01/20/25 Range/Units 20:52 POC Glucometer 222 H (74 to 106) mg/dL Radiology Exams: Radiology Procedures Category Date Time Status HIP (1V) INCL PEL IF DONE Stat Exams 01/20/25 11:01 Completed HIP UNI (2V) INCL PEL IF DONE Stat Exams 01/20/25 09:47 Completed Medications: Medications Generic Name Dose Route Start Last Admin Trade Name Freq PRN Reason Stop Dose Admin Hydrocodone Bitart/Acetaminophen 1 tab 01/20/25 13:50 01/21/25 07:34 Hydrocodone /Apap 7.5/325 Mg 1 Each Tablet PO 01/25/25 13:49 1 tab Q4HPRN PRN Administration PAIN 5-7 Albuterol Sulfate 2.5 mg 01/20/25 15:14 Albuterol Sulfate 2.5 Mg/3 Ml Neb 02/19/25 15:13 Q4HPRN PRN SHORTNESS OF BREATH/WHEEZING Albuterol Sulfate 2 puff 01/20/25 16:16 Albuterol Common Canister Inhaler 02/19/25 16:15 Q4HPRN PRN SHORTNESS OF BREATH Amlodipine Besylate 5 mg 01/20/25 17:00 01/20/25 17:47 Amlodipine Besylate 5 Mg Tablet PO 02/19/25 16:59 5 mg 1700 GARRY Administration Aspirin 81 mg 01/21/25 10:00 Aspirin 81 Mg Tablet.Ec PO 02/20/25 09:59 BID GARRY Carvedilol 25 mg 01/20/25 17:00 01/21/25 05:02 Carvedilol 12.5 Mg Tablet PO 02/19/25 16:59 25 mg 0500,1700 GARRY Administration Docusate Sodium 100 mg 01/20/25 13:52 Docusate Sodium 100 Mg Capsule PO 02/19/25 13:51 BIDPRN PRN constipation Dutasteride 0.5 mg 01/20/25 17:00 01/20/25 17:47 Dutasteride 0.5 Mg Capsule PO 02/19/25 16:59 0.5 mg 1700 GARRY Administration Ferrous Sulfate 325 mg 01/20/25 17:00 01/20/25 17:47 Ferrous Sulfate 325 Mg Tablet PO 02/19/25 16:59 325 mg 1700 GARRY Administration Fluoxetine HCl 20 mg 01/21/25 05:00 01/21/25 05:03 Fluoxetine Hcl 20 Mg Cap PO 02/20/25 04:59 20 mg 0500 GARRY Administration Hydrochlorothiazide 12.5 mg 01/21/25 10:00 Hydrochlorothiazide 25 Mg Tablet PO 02/20/25 09:59 DAILY GARRY Hydromorphone HCl 0.5 mg 01/20/25 15:38 Hydromorphone 1 Mg/1ml Inj IV 01/25/25 15:37 Q3HPRN PRN PAIN Sodium Chloride 1,000 mls @ 75 mls/hr 01/20/25 06:15 01/21/25 03:26 Sodium Chloride 0.9% 1000 Ml IV 02/19/25 06:14 50 mls/hr .[id number] GARRY Administration Lisinopril 20 mg 01/21/25 10:00 Lisinopril 20 Mg Tablet PO 02/20/25 09:59 DAILY GARRY Metformin HCl 1,000 mg 01/20/25 17:00 01/21/25 07:34 Metformin Hcl 500 Mg Tablet PO 02/19/25 16:59 1,000 mg 0800,1700 GARRY Administration Miscellaneous Information 1 each 01/20/25 17:15 Medication Intervention 1 Each Each 02/19/25 17:14 .RN TO CHECK GARRY Montelukast Sodium 10 mg 01/20/25 17:00 01/20/25 17:48 Montelukast Sodium 10 Mg Tablet PO 02/19/25 16:59 10 mg 1700 GARRY Administration Multivitamins/Minerals 1 tab 01/20/25 16:30 01/20/25 16:41 Beta-Carotene(A) W-C And E/Min 1 Tab Tablet PO 02/19/25 16:29 Not Given DAILY GARRY Olopatadine HCl 0 ml 01/20/25 22:00 01/20/25 21:19 Olopatadine Hcl 5 Ml Eye Drops OP 02/19/25 21:59 Not Given BID GARRY Ondansetron HCl 4 mg 01/20/25 13:51 Ondansetron Hcl 4 Mg/2 Ml Vial IV 02/19/25 13:50 Q6HPRN PRN nausea/vomiting Tamsulosin HCl 0.4 mg 01/20/25 17:00 01/20/25 17:47 Tamsulosin Hcl 0.4 Mg Cap PO 02/19/25 16:59 0.4 mg 1700 GARRY Administration Discontinued Medications Generic Name Dose Route Start Last Admin Trade Name Freq PRN Reason Stop Dose Admin Acetaminophen 1,000 mg 01/20/25 06:09 01/20/25 06:44 Acetaminophen 500 Mg Tablet PO 01/20/25 06:10 1,000 mg STAT STA Administration Albuterol Sulfate 2 puff 01/20/25 16:15 01/20/25 17:51 Albuterol Common Canister Inhaler 02/19/25 16:14 Not Given Q4H [facility] Amlodipine Besylate 5 mg 01/20/25 22:00 Amlodipine Besylate 5 Mg Tablet PO 02/19/25 21:59 BID [facility] Carvedilol 25 mg 01/20/25 22:00 Carvedilol 12.5 Mg Tablet PO 02/19/25 21:59 BID [facility] Cefazolin Sodium Confirm 01/20/25 06:26 Cefazolin Sodium 2 Gm Vial Administered 01/20/25 06:27 Dose 2 gm .ROUTE .STK-MED ONE Cyanocobalamin 1,000 mcg 01/20/25 15:15 Cyanocobalamin 1000 Mcg/Ml Vial IJ 02/19/25 15:14 UD [facility] Dexamethasone 8 mg 01/20/25 06:09 01/20/25 06:45 Dexamethasone 4 Mg Tablet PO 01/20/25 06:10 8 mg 2HRPRIOR ONE Administration Dutasteride 0.5 mg 01/20/25 14:30 01/20/25 16:15 Dutasteride 0.5 Mg Capsule PO 02/19/25 14:29 Not Given DAILY [facility] Dutasteride 0.5 mg 01/20/25 16:30 01/20/25 17:51 Dutasteride 0.5 Mg Capsule PO 02/19/25 16:29 Not Given DAILY [facility] Fentanyl Citrate Confirm 01/20/25 07:57 Fentanyl Citrate 100 Mcg/2 Ml* Vial Administered 01/20/25 07:58 Dose 100 mcg .ROUTE .STK-MED ONE Fentanyl Citrate Confirm 01/20/25 10:26 Fentanyl Citrate 100 Mcg/2 Ml* Vial Administered 01/20/25 10:27 Dose 100 mcg .ROUTE .STK-MED ONE Fluoxetine HCl 20 mg 01/20/25 16:30 01/20/25 17:52 Fluoxetine Hcl 20 Mg Cap PO 02/19/25 16:29 Not Given DAILY [facility] Hydromorphone HCl Confirm 01/20/25 10:27 Hydromorphone Hcl/Pf 0.5 Mg/0.5 Ml Syringe Administered 01/20/25 10:28 Dose 0.5 mg .ROUTE .STK-MED ONE Hydromorphone HCl Confirm 01/20/25 10:43 Hydromorphone Hcl/Pf 0.5 Mg/0.5 Ml Syringe Administered 01/20/25 10:44 Dose 0.5 mg .ROUTE .STK-MED ONE Hydromorphone HCl Confirm 01/20/25 10:56 Hydromorphone Hcl/Pf 0.5 Mg/0.5 Ml Syringe Administered 01/20/25 10:57 Dose 0.5 mg .ROUTE .STK-MED ONE Hydromorphone HCl Confirm 01/20/25 11:12 Hydromorphone Hcl/Pf 0.5 Mg/0.5 Ml Syringe Administered 01/20/25 11:13 Dose 0.5 mg .ROUTE .STK-MED ONE Cefazolin Sodium 2 gm/ Sodium 100 mls @ 200 mls/hr 01/20/25 06:07 01/20/25 06:45 Chloride IV 01/20/25 06:36 200 mls/hr ONCALLTOOR ONE Administration TRANEXAMIC ACID IN NACL,ISO-OS 1,000 mg in 100 mls @ 600 mls/hr 01/20/25 06:07 01/20/25 06:48 Tranexamic 1,000 Mg/100ml-Nacl IV 01/20/25 06:16 600 mls/hr ONCE ONE Administration Sodium Chloride Confirm 01/20/25 06:25 Sodium Chloride 0.9% Administered 01/20/25 06:26 Dose 100 mls @ ud .ROUTE .STK-MED ONE Sodium Chloride Confirm 01/20/25 09:40 Sodium Chloride 0.9% 1000 Ml Administered 01/20/25 09:41 Dose 1,000 mls @ ud .ROUTE .STK-MED ONE Cefazolin Sodium 2 gm/ Sodium 100 mls @ 200 mls/hr 01/20/25 14:00 01/20/25 21:19 Chloride IV 01/20/25 22:29 200 mls/hr Q8HT GARRY Administration Ketorolac Tromethamine Confirm 01/20/25 07:57 Ketorolac Tromethamine 30 Mg/Ml Inj Administered 01/20/25 07:58 Dose 30 mg .ROUTE .STK-MED ONE Lidocaine HCl Confirm 01/20/25 07:57 Lidocaine - Mpf 2% 5 Ml Vial Administered 01/20/25 07:58 Dose 5 ml .ROUTE .STK-MED ONE Montelukast Sodium 10 mg 01/20/25 16:30 01/20/25 17:52 Montelukast Sodium 10 Mg Tablet PO 11/26/25 16:29 Not Given DAILY [facility] Morphine Sulfate 4 mg 01/20/25 13:51 Morphine Sulfate 4 Mg/Ml Injection IV 01/25/25 13:50 Q4HPRN PRN BREAKTHROUGH PAIN Non-Formulary Medication 1 tab 01/21/25 10:00 Lisinopril/Hydrochlorothiazide [Lisinopril-Hctz 20-12.5 Mg Tab] PO 02/20/25 09:59 DAILY [facility] Ondansetron HCl Confirm 01/20/25 07:57 Ondansetron Hcl 4 Mg/2 Ml Vial Administered 01/20/25 07:58 Dose 4 mg .ROUTE .STK-MED ONE Propofol Confirm 01/20/25 07:57 Propofol 200 Mg/20 Ml Vial Administered 01/20/25 07:58 Dose 200 mg IV .STK-MED ONE Rocuronium [place] Confirm 01/20/25 07:57 Rocuronium [place] 50 Mg/5 Ml Vial Administered 01/20/25 07:58 Dose 50 mg IV .STK-MED ONE Ropivacaine Confirm 01/20/25 10:07 Ropivacaine Hcl 5 Mg/Ml 30ml Vial Administered 01/20/25 10:08 Dose 150 mg .ROUTE .STK-MED ONE Sugammadex Sodium Confirm 01/20/25 07:57 Sugammadex Sodium 200 Mg/2 Ml Vial Administered 01/20/25 07:58 Dose 200 mg IV .STK-MED ONE Tamsulosin HCl 0.4 mg 01/20/25 16:30 01/20/25 17:52 Tamsulosin Hcl 0.4 Mg Cap PO 02/19/25 16:29 Not Given DAILY [facility] Multi-Disciplinary Progress Notes: Multi-Disciplinary Progress Notes 01/20/25 18:02 OT Plan of Care Note by Paris (Mendoza#[id number])Gabby OT Eval OT Inpatient Eval and POC Start: 01/20/25 14:53 Freq: ONCE Status: Complete Protocol: Created 01/20/25 14:53 AR (Rec: 01/20/25 14:53 AR [id number]) Document 01/20/25 17:48 KA (Rec: 01/20/25 18:00 KA [id number]) OT Evaluation Subjective PATIENT AGREEABLE TO OT EVALUATION Pertinent Past Medical History SEE PMH BELOW *LEFT SHOULDER ROM LIMITATIONS AT BASELINE; LIKELY RTC TEAR Prior Level of Function PATIENT WAS INDEPENDENCE WITH I/ADLS, TRANSPORTATION, AND LAWN CARE. Equipment at Home Prior to Admission Walker,Cane,Raised Toilet Seat ,Shower Chair Home Setup [id number],Elevated Height Toilet,Stairs Comment 6 STEPS TO ENTER HOME Date 01/20/25 Feeding WFL Grooming WFL Bathing Impaired Comment MIN ASSIST Dressing Impaired Comment MIN ASSIST (WITH USE OF A/E FOR LB DRESSING) Toileting WFL Functional Transfers Impaired Comment CGA (VERBAL CUES FOR SAFETY INSIGHT WITH HIP PRECAUTIONS) Range of Motion Impaired Comment RIGHT UE AROM: WFL LEFT UE AROM: IMPAIRED (AT BASELINE WITH SHOULDER FLEX AND ABD) Coordination WFL Functional Strength WFL; AT BASELINE Functional Endurance FAIR+ Cognition ALERT AND ORIENTED X 4 Pain 7/10 RIGHT HIP DURING FUNCTIONAL TASKS/MOBILITY Objective Data/Standardized Assessment(s RENDON: 3/6 INDICATING MODERATE ) LEVEL OF DEPENDENCE WITH ADLS. Comment EDUCATION PROVIDED ON HIP PRECAUTIONS AND USE OF A/E FOR LB DRESSING. OT ISSUED PATIENT A SR ACCOUNT EXECUTIVE, SOCK-AID, AND SHOE HORN. OT Plan Of Care Date of Evaluation 01/20/25 Treatment Diagnosis RIGHT JOSH Precaution/Orders as written HIP PRECAUTIONS Teaching Recipient Parent Patient is Aware of Diagnosis and Yes Prognosis Patient is receptive to Plan of Care and Yes contributory towards OT goals Functional Problem List PATIENT REQUIRING CGA FOR BASIC SIT<>STAND TRANSFERS, MIN ASSIST WITH A/E FOR LB DRESSING (SECONDARY TO GRIPPY SOCKS), AND DECREASED MOBILITY LIMITING INDEPENDENCE WITH I/ ADLS. Therapuetic Interventions SELF-CARE, THERAPEUTIC ACTIVITY, THERAPEUTIC EXERCISE , EDUCATION Functional Goals of Treatment 1) BY 01/22/25, PATIENT WILL DEMONSTRATE INDEPENDENCE WITH USE OF A/E TO COMPLETE ADLS IN COMPLIANCE WITH HIP PRECAUTIONS. 2) BY 01/22/25, PATIENT WILL COMPLETE ADLS INDEPENDENTLY WITH COMPLIANCE TO HIP PRECAUTIONS. Frequency/Duration 5X/WEEK Rehabilitation Potential for Goals/ Good Barriers to Progress Discharge Recommendations/Plan RETURN HOME WITH OP PHYSICAL THERAPY REGARDING JOSH. Medical & Surgical History Past Medical History Yes Neurological History Peripheral Neuropathy ENT History Macular Degeneration Endocrine History Diabetes Type II Respiratory History No Pertinent History Cardiac History Hypertension GI History GERD,GI Bleed,Hernia History Other Male Reproductive Disorders Prostate Problems Musculoskeletal History Arthritis,Osteoarthritis Psycho-Social History Anxiety,Depression Other Medical History Vasectomy, hernia repair, history of pulmonary embolism, vertigo Please see chart for complete medical history. Past Surgical History Yes Hx Anesthesia Reactions Yes: novacaine--GOT VOLENT DURING UPPER SCOPE Hx Malignant Hyperthermia No Neurological Surgical History No Pertinent History ENT Surgical History Cataract Surgery Respiratory Surgical History No Pertinent History Cardiac Surgical History No Pertinent History Gastrointestinal Surgical History Hernia Repair Genitourinary Surgical History No Pertinent History Male Surgical History Vasectomy Musculoskeletal Surgical History No Pertinent History Other Surgical History repair to penis d/t injury several years ago vasectomy times 2, hernia repair, egd/ colonoscopy Alcohol Rarely Drug Use none Hx Substance Use Treatment No Initialized on 01/20/25 18:02 - END OF NOTE Assessment/Plan - Assessment/Plan Assessment & Plan: s/p right JOSH, POD #1 Continue PT. Likely DC home this morning after PT. Change right hip dressing at 10 days post op. Follow up in 10-14 days.
[2025-01-21] MEDS: hydroDIURIL 25 MG PO SCH (08:36)
[2025-01-21] MEDS: Zestril 20 MG PO SCH (08:36)
[2025-01-21] MEDS: ECOTRIN 81 MG PO SCH (08:37)
[2025-01-21] MEDS ORDERED: NON-FORMULARY ITEM (Vit A/Vit C/Vit E/Zinc/Copper [Preservision Areds Tablet] 1 EACH Table PO SCH (10:00)
[2025-01-21] MEDS ORDERED: NON-FORMULARY ITEM (Lisinopril/Hydrochlorothiazide [Lisinopril-Hctz 20-12.5 Mg Tab] 1 EACH PO SCH (10:00)
--- NOTE | 2025-01-21 11:41 | OP ---
SURGERY DATE/TIME: 01/20/2025 [id number] PREOPERATIVE DIAGNOSIS: Right hip degenerative joint disease. POSTOPERATIVE DIAGNOSIS: Right hip degenerative joint disease. PROCEDURE: Right total hip arthroplasty. SURGEON: Reginaldo Viramontes MD [employer] SUPERVISOR: ROLY Arroyo. ANESTHESIA: General. COMPLICATIONS: None. ESTIMATED BLOOD LOSS: 150 mL. INDICATIONS: The patient is a 79-year-old male who presented with a several-year history of worsening right hip pain. His x-rays revealed advanced degenerative joint disease. We discussed options, and he wanted to proceed with right total hip arthroplasty. I explained the risks associated with the procedure, including but not limited to infection, pain, bleeding, damage to surrounding structures, stiffness, limp, fracture, blood clot, leg length discrepancy, pneumonia, and need for other procedures. After explaining all risks, benefits, and alternative treatment options, he desired to proceed with surgery. DESCRIPTION OF PROCEDURE AND FINDINGS: The patient was taken to the operating room and placed in the supine position. IV antibiotics were administered and general anesthesia was administered as well. He was then placed in the lateral position with the right hip up. The right hip and lower extremity were then prepped and draped in a standard sterile fashion. At this time, a longitudinal incision was made over the lateral aspect of the right hip. A modified direct lateral approach was then utilized. The hip was dislocated anteriorly. The neck cut was then made using a saw. The acetabular labrum was then excised. The acetabulum was then sequentially reamed up to a size 54. A size 54 trial cup was inserted and this gave an excellent fit. The wound was thoroughly irrigated with a pulse lavage. At this time, a [employer] size 54 G7 acetabular shell was press-fit into position. The liner for the dual mobility system was then impacted into the cup. Attention was then turned to preparation of the femur. The cookie cutter was used to enter the femoral canal. This was followed by the canal finder. The femoral canal was sequentially broached up to a size 6. At this time, a standard offset neck was placed on the broach as well as a +0 trial dual mobility construct. The hip was reduced, and there was excellent stability and range of motion as well as excellent clinical holiness of leg length. An AP pelvis x-ray was obtained intraoperatively, which revealed good position of the components as well as good holiness of leg length. The hip was again dislocated and the trial components were removed. An Avenir size 6 standard offset stem was press-fit into position. An excellent press-fit was obtained. The x-ray was actually taken after the stem had been implanted with the trial head. At this time, a 28 mm cobalt chrome +0 ball was coupled with the 44 mm polyethylene bearing for the dual mobility. The head was impacted onto the stem. The hip was reduced, and again there was excellent stability and range of motion as well as clinical holiness of leg length. The wound was thoroughly irrigated with a pulse lavage. The arthrotomy and hip abductors were approximated with #1 Vicryl sutures. The fascia was closed with 0 Vicryl sutures. The subcutaneous tissue was closed with 2-0 Vicryl and the skin was closed with jeffrey. Sterile dressing was then applied. The patient was then awakened from anesthesia and taken to the recovery room in stable condition.
== END 2025-01-21 10:50 | disposition home or self-care (01) ==
LOC: SDC 05:37 → MED SURG 11:33 → SDC 01-21 10:50
PROVIDERS: ATTEND Orthopaedic Surgery
DX: M16.11 Unilateral primary osteoarthritis, right hip (principal); E11.9 Type 2 diabetes mellitus without complications